=== PATIENT | male | born 1960 | race Caucasian/White ===

== ENCOUNTER 2023-02-28 09:02 | Outpatient (OUT) | payer OTHER, SELFPAY ==
--- NOTE | 2023-02-28 09:08 | CA_ITS ---
Patient: CHENTE STUBBS Exam Date: 02/28/2023 : 1960 Gender:M Ordering : DR YAN MARCELINO M.D. Admission #: [id number] Family : Order #: [id number] CLICK HERE TO VIEW EXAM ECHOCARDIOGRAM REPORT PROCEDURE: CA ECHO DOPPLER COMPLETE INDICATIONS: shortness of breath COMPARISON: None. DESCRIPTION: COMPLETE ECHOCARDIOGRAM Real-time transthoracic echocardiography with 2D, M-mode, spectral and color flow Doppler performed. QUALITY: Technical quality was good. LEFT VENTRICLE: Normal chamber size. Borderline left ventricular hypertrophy. Global left ventricular systolic function is normal. LV EF: Calculated left ventricular ejection fraction is 57% DIASTOLIC: Normal diastolic function. ATRIAL SEPTUM: LEFT ATRIUM: Mild dilatation. RIGHT ATRIUM: Mild dilatation. RIGHT VENTRICLE: Normal chamber size. Normal right ventricular systolic function. TRICUSPID VALVE: Normal mobility and thickness. No stenosis with mild regurgitation. Mild pulmonary hypertension. RVSP 36 mmHg MITRAL VALVE: Normal mobility and thickness. No evidence of mitral valve stenosis. There is no mitral annular calcification. Trivial mitral regurgitation. AORTIC VALVE: Normal trileaflet appearance. No visible sclerosis. Normal leaflet mobility. No evidence of aortic valve stenosis. Trivial aortic regurgitation. AORTIC ROOT: Normal diameter and appearance. PULMONIC VALVE: Normal thickness and mobility. No stenosis. No regurgitation. PERICARDIUM: No evidence of pericardial effusion. IVC: Collapses with inspirations. Normal size PLEURA: CONCLUSION: 1. Normal ventricular systolic function. LVEF is 55 to 60%. 2. Mild biatrial dilatation. 3. Normal diastolic function. 4. Mild tricuspid regurgitation. 5. Mildly elevated right-sided pressures. RVSP is 36 mmHg. 6. No pericardial effusion. Adult Echocardiography Procedure Report Left Ventricle LVEDD (3.7 - 5.6 cm): 4.87 cm LVESD (2.2 - 4.0 cm): 3.39 cm LVIVS thickness (0.6 - 1.2 cm): 0.94 cm LVPW thickness (0.5 - 1.0 cm): 1.06 cm e': 0.12 m/s E - e': 5.60 LVOT Max Gradient: 2.88 mm[Hg] LVOT Area (cm2): 0.85 m/s Peak Velocity (LVOT): 0.85 m/s Mean Velocity (LVOT): 0.56 m/s LVOT Diameter 2.18 cm Left Ventricular Ejection Fraction: 56.82 % Left Atrium LA Volume Index (2D A2C): 38.75 ml/m2 Left Atrium Systolic Dimension: 3.64 cm Mitral Valve MV E to A Ratio: 1.27 Mitral Valve A-Wave Peak Velocity: 0.54 m/s Mitral Valve E-Wave Peak Velocity: 0.68 m/s Right Ventricle RV Internal Diastolic Dimension: 3.55 cm Aorta AO Root Diam: 3.54 cm Ascending Ao Diam: 3.04 cm Aortic Valve AoV Area (Peak Christo): 3.12 cm2, 3.12 cm2 AoV Area (VTI): 2.93 cm2, 2.93 cm2 Peak Velocity(Antegrade Flow): 1.01 m/s Peak Gradient(Antegrade Flow): 4.12 mm[Hg] Mean Velocity(Antegrade Flow): 0.74 m/s Mean Gradient(Antegrade Flow): 2.48 mm[Hg] Velocity Time Integral: 23.14 cm Tricuspid Valve Peak Velocity (Regurgitant Flow): 2.33 m/s, 2.47 m/s, 2.88 m/s Pulmonic Valve Mean Gradient: 2.02 mm[Hg], 1.84 mm[Hg] Mean Velocity: 0.66 m/s, 0.63 m/s Peak Velocity: 0.93 m/s Peak Gradient: 3.80 mm[Hg], 3.20 mm[Hg] Right Atrium Right Atrium Systolic Pressure: 73.62 ml, 73.62 ml Dictated by: Yan Marcelino M.D. on 02/28/2023 at 18:44 Approved by: Yan Marcelino M.D. on 02/28/2023 at 18:46
== END 2023-02-28 09:03 | disposition home or self-care (01) ==
LOC: CARD 09:05
PROVIDERS: PCP Family Medicine; Visit Provider Internal Medicine Interventional Cardiology
DX: R06.02 Shortness of breath (principal); Z95.5 Presence of coronary angioplasty implant and graft; I07.1 Rheumatic tricuspid insufficiency
CPT/HCPCS: 93306

== ENCOUNTER 2023-08-08 11:13 | Outpatient (OUT) | payer OTHER, SELFPAY ==
[2023-08-08 11:55] LABS: Chol HDL Ratio 1.9; Cholesterol 138 mg/dL (<=200); HDL Cholesterol 71 mg/dL (40-60); Triglycerides 120 mg/dL (<=150)
== END 2023-08-08 11:14 | disposition home or self-care (01) ==
PROVIDERS: PCP Family Medicine; Visit Provider Internal Medicine Interventional Cardiology
DX: E78.2 Mixed hyperlipidemia (principal)
CPT/HCPCS: 36415; 80061

== ENCOUNTER 2023-09-25 15:52 | Outpatient (OUT) | payer OTHER, SELFPAY ==
--- OUTSIDE RECORDS SUMMARY | 2023-09-25 15:55 | XMS_ITS | CCD ---
Author Name Unknown Address [address] [place] [address] Organization [facility] Care Team Providers Care Set Up [employer] Name Role Phone KIMBERLI, DR GUMARO Quispe Consulting Unavailable NADERER, DR GUMARO Quispe Attending Unavailable NADERER, DR GUMARO Quispe Admitting Unavailable NADERER, DR GUMARO Quispe Attending Unavailable NADERER, DR GUMARO Quispe Admitting Unavailable NADERER, DR GUMARO Quispe Primary Care Unavailable NADERER, DR GUMARO Quispe Consulting Unavailable UNKNOWN, PROVIDER Admitting Unavailable UNKNOWN, PROVIDER Attending Unavailable GUMARO AG Referring Unavailable NADEREBird, GUMARO Primary Care Unavailable NadereGumaro pang Primary Care Provider [phone] Jean-Claude CABRERA Referring Unavailable ENGJean-Claude MORAN Attending Unavailable NADGUMARO XIE Primary Care Unavailable Jean-Claude CABRERA Attending Unavailable NADGUMARO XIE Primary Care Unavailable NADEREGUMARO Pang Primary Care Unavailable Jean-Claude CABRERA Attending Unavailable GUMARO AG Primary Care Unavailable ISAAK HEARD Referring Unavailable ENGJean-Claude MORAN Referring Unavailable YAN MOSCOSO Attending Unavailable YAN MOSCOSO Attending Unavailable Gumaro Ag MD Primary Care Provider GUMARO AG Referring Unavailable NADEREGUMARO Pang Primary Care Unavailable NADEREGUMARO Pang Referring Unavailable NADEREBird, GUMARO Primary Care Unavailable NADEREGUMARO Pang Referring Unavailable NADEREBird, GUMARO Primary Care Unavailable NADGUMARO XIE Referring Unavailable NADEREBird, GUMARO Primary Care Unavailable ORQUIDEA, ISAAK N Referring Unavailable KIMBERLI, GUMARO Primary Care Unavailable ISAAK HEARD N Attending Unavailable GUMARO AG Referring Unavailable KIMBERLI, GUMARO Primary Care Unavailable NADEREBird, GUMARO Referring Unavailable NADEREBird, GUMARO Primary Care Unavailable Allergies Allergy Classification Reported Allergen(s) Allergy Type Date of Onset Reaction(s) Facility Amino Acids (1 source) Amino Acids Drug Allergy [facility] Repository (4 sources) Amino Acids; Translations: [LISINOPRIL] Drug Allergy 9 [facility] Repository (11 sources) Lisinopril Drug Allergy 9 Other: See Comments, Cough [facility] (7 sources) Isosorbide; Translations: [ISOSORBIDE] Drug Allergy 0 [facility] [employer] Medications Current Medications Medication Drug Class(es) Dates Sig (Normalized) Sig (Original) benzonatate 200 mg oral capsule (3 sources) Non-narcotic Antitussive Start: 09-18-2023 take 1 capsule by mouth three times daily as needed for cough benzonatate (TESSALON PERLES) 200 mg capsule Take 1 capsule (200 mg total) by mouth 3 (three) times a day as needed for cough. 60 capsule 0 09/18/2023 Active clopidogrel 75 mg oral tablet (11 sources) P2Y12 Platelet Inhibitor Start: 12-05-2021 take 1 tablet by mouth in the morning clopidogreL (PLAVIX) 75 mg tablet Take 1 tablet (75 mg total) by mouth in the morning. 0 12/01/2022 Active Comment on above: Take 75 mg by mouth. cyclobenzaprine hydrochloride 10 mg oral tablet (11 sources) Muscle Relaxant Start: 02-13-2023 take 1 tablet by mouth three times daily as needed for muscle spasms cyclobenzaprine (FLEXERIL) 10 mg tablet Take 1 tablet (10 mg total) by mouth 3 (three) times a day as needed for muscle spasms. 60 tablet 0 02/13/2023 Active Comment on above: Take 10 mg by mouth. diphenhydrAMINE 12.5 mg/5 mL elixir 50 mg, alum-mag hydroxide-simeth 400-400-40 mg/5 mL suspension 20 mL, lidocaine 2 % solution 20 mL (6 sources) Start: 08-05-2023 diphenhydrAMINE 12.5 mg/5 mL elixir 50 mg, alum-mag hydroxide-simeth 400-400-40 mg/5 mL suspension 20 mL, lidocaine 2 % solution 20 mL Swish and spit 10 mL every 4 (four) hours as needed for mucositis. 250 mL 1 08/05/2023 Active 0.4 ml enoxaparin sodium 100 mg/ml prefilled syringe (6 sources) Low Molecular Weight Heparin Start: 10-17-2021 enoxaparin (LOVENOX) syringe 40 mg fluticasone propionate 0.05 mg/actuat metered dose nasal spray (11 sources) Corticosteroid take 1 spray(s) nasal route in the morning fluticasone propionate (FLONASE) 50 mcg/actuation nasal spray Indications: allergic rhinitis Administer 1 spray into each nostril in the morning. Indications: inflammation of the nose due to an allergy. 0 Active Comment on above: Use 1 [place] in the n ose. icosapent ethyl 1000 mg oral capsule (6 sources) Start: 02-12-2023 VASCEPA 1 gram capsule Take 1 capsule (1 g total) by mouth 4 (four) times a day. TAKE 2 PILLS IN THE MORNING AND TAKE 2 PILLS AT NIGHT 0 02/12/2023 Active iv contrast (will be provided with radiology test) (1 source) Start: 05-21-2023 End: 05-22-2023 iv contrast (will be provided with radiology test) MRI Liver Inject, intravenously, once for 1 dose. No IV access, insert saline lock prior to the beginning of sedation, infusion, injection of imaging exam. Discontinue saline lock post exam. If Pt. has a central line or IVAD, may access for administration according to line specific nursing protocol. Once exam is complete flush line and de-access according to line specific nursing protocol in the MR contrast administration guidelines link. 1 Each 0 05/21/2023 05/22/2023 Active Comment on above: MRI Liver Inject, in travenously, once for 1 dose. No IV access, insert saline lock prior to the beginning of sedation, infusion, injection of imaging exam. Discontinue saline lock post exam. If Pt. has a central line or IVAD, may access for administration according to line specific nursing protocol. Once exam is complete flush line and de-access according to line specific nursing protocol in the MR contrast administration guidelines link. levoFLOXacin 750 mg oral tablet (3 sources) Quinolone Antimicrobial Start: 09-18-2023 End: 09-28-2023 take 1 tablet by mouth in the morning levoFLOXacin (LEVAQUIN) 750 mg tablet Take 1 tablet (750 mg total) by mouth in the morning for 10 days. 10 tablet 0 09/18/2023 09/28/2023 Active losartan potassium 50 mg oral tablet (11 sources) Angiotensin 2 Receptor Venkat Start: 03-30-2019 take 1 tablet by mouth once daily at breakfast losartan (COZAAR) 50 mg tablet Indications: hypertension Take 1 tablet (50 mg total) by mouth daily with breakfast Indications: high blood pressure. 5 03/30/2019 Active Comment on above: Take 50 mg by mouth. magnesium citrate 100 mg oral tablet (11 sources) take 1 capsule by mouth in the morning magnesium citrate 100 mg capsule Take 100 mg by mouth in the morning. 0 Active Comment on above: Take 100 mg by mouth . metoprolol tartrate 25 mg oral tablet (11 sources) beta-Adrenergic Venkat Start: 12-22-2019 take 1 tablet by mouth twice daily metoprolol tartrate (LOPRESSOR) 25 mg tablet Take 1 tablet (25 mg total) by mouth 2 (two) times a day. 60 tablet 0 12/22/2019 Active Comment on above: Take 1 tablet by cedrick th twice daily. omega-3 fatty acids 1,000 mg cap (5 sources) Start: 05-16-2023 End: 05-15-2024 omega-3 fatty acids 1,000 mg cap Take 1,000 mg by mouth. 0 05/16/2023 05/15/2024 Active Comment on above: Take 1,000 mg by cedrick th. omega-3 fatty acids/fish oil (OMEGA 3 FISH OIL ORAL) (6 sources) take 1000 mg by mouth in the morning omega-3 fatty acids/fish oil (OMEGA 3 FISH OIL ORAL) Take 1,000 mg by mouth in the morning. 0 Active ondansetron 8 mg oral tablet (11 sources) Serotonin-3 Receptor Antagonist Start: 06-25-2022 take 1 tablet by mouth twice daily as needed for nausea ondansetron (ZOFRAN) 8 mg tablet Indications: CINV (chemotherapy-induc ed nausea and vomiting) , Rectal cancer (CMS-HCC) , Primary malignant neoplasm of rectum (CMS-HCC) , Chemotherapy induced neutropenia (CMS-HCC) Take 1 tablet by mouth twice daily as needed for severe nausea or vomiting. 30 tablet 2 06/25/2022 Active Comment on above: Take 1 tablet by cedrick th twice daily as needed for severe nausea or vomiting. oxyCODONE hydrochloride 5 mg oral tablet (11 sources) Opioid Agonist Start: 08-05-2023 take 1 tablet by mouth every eight hours as needed for pain oxyCODONE (ROXICODONE) 5 mg immediate release tablet Indications: Rectal cancer (CMS-HCC) Take 1 tablet (5 mg total) by mouth every 8 (eight) hours as needed for pain. Max Daily Amount: 15 mg 45 tablet 0 08/05/2023 Active Start: 05-09-2023 oxyCODONE IR ( ROXICODONE) 5 mg immediate release tablet pantoprazole 40 mg delayed release oral tablet (11 sources) Proton Pump Inhibitor take 1 tablet by mouth once daily before breakfast pantoprazole (PROTONIX) 40 mg EC tablet Indications: gastroesophageal reflux disease Take 1 tablet (40 mg total) by mouth every morning before breakfast Indications: gastroesophageal reflux disease. 0 Active Comment on above: Take 40 mg by mouth. polyethylene glycol 3350 37448 mg powder for oral solution (6 sources) Osmotic Laxative Start: 2022 polyethylene glycol (GLYCOLAX) 17 gram packet Take 17 g by mouth in the morning. 14 packet 1 03/14/2023 Active prochlorperazine 10 mg oral tablet (11 sources) Phenothiazine Start: 2022 take 1 tablet by mouth every six hours as needed for nausea prochlorperazine (COMPAZINE) 10 mg tablet Indications: CINV (chemotherapy-induced nausea and vomiting) , Rectal cancer (CMS-HCC) , Primary malignant neoplasm of rectum (CMS-HCC) , Chemotherapy induced neutropenia (CMS-HCC) TAKE ONE TABLET BY MOUTH EVERY 6 HOURS NEEDED FOR MILD NAUSEA OR VOMITING 60 tablet 2 08/06/2023 Active Start: 06-25-2022 take 1 tablet by cedrick th every six hours as needed for nausea prochlorperazine (COMPAZINE) 10 mg tablet Take 1 tablet by mouth every 6 hours as needed for mild nausea or vomiting. 0 06/25/2022 Active Comment on above: Take 1 tablet by cedrick th every 6 hours as needed for mild nausea or vomiting. TRELEGY ELLIPTA 200-62.5-25 mcg blister with device (6 sources) Start: 01-21-2023 take 200 puff(s) by inhalation in the morning TRELEGY ELLIPTA 200-62.5-25 mcg blister with device Inhale 200 puffs in the morning. 0 01/21/2023 Active Completed/Discontinued Medications Medication Drug Class(es) Dates Sig (Normalized) Sig (Original) aspirin 81 mg delayed release oral tablet (11 sources) Platelet Aggregation Inhibitor, Nonsteroidal Anti-inflammatory Drug Start: 07-31-2021 aspirin, enteric coated (ASPIRIN, ENTERIC COATED) 81 mg EC tablet Take 81 mg by mouth. 0 07/31/2021 Active Comment on above: Take 81 mg by mouth. atorvastatin 40 mg oral tablet (11 sources) HMG-CoA Reductase Inhibitor Start: 06-26-2021 take 1 tablet by mouth once daily atorvastatin (LIPITOR) 40 mg tablet Take 1 tablet by mouth once daily. 0 06/26/2021 Active Comment on above: Take 1 tablet by cedrick once daily. 1 ml atropine sulfate 0.4 mg/ml injection (1 source) Anticholinergic, Cholinergic Muscarinic Antagonist Start: 09-03-2023 End: 09-03-2023 atropine injection 0.4 mg bevacizumab (AVASTIN) 500 mg in sodium chloride 0.9 % 100 mL chemo IVPB (1 source) Start: 09-03-2023 End: 09-03-2023 bevacizumab (AVASTIN) 500 mg in sodium chloride 0.9 % 100 mL chemo IVPB 120 actuat budesonide 0.16 mg/actuat / formoterol fumarate 0.0048 mg/actuat / glycopyrrolate 0.009 mg/actuat metered dose inhaler (5 sources) Corticosteroid, beta2-Adrenergic Agonist Start: 04-29-2023 BREZTRI AEROSPHERE 160-9-4.8 mcg/actuation HFA aerosol inhaler capecitabine 500 mg oral tablet (11 sources) Nucleoside Metabolic Inhibitor Start: 05-07-2023 capecitabine (XELODA) 500 mg tablet Start: 09-23-2022 capecitabine ( XELODA) 500 mg chemo tablet Take 4 tablets by mouth 2 (two) times a day Take for one week and 1 week off 112 tablet 11 09/23/2022 Active cholecalciferol 0.05 mg oral tablet (11 sources) Vitamin D Start: 05-14-2023 cholecalcifero l (VITAMIN D3) 50 mcg (2,000 unit) tablet take 1 tablet by mouth in the mo rning cholecalciferol, vitamin D3, 5,000 units tablet Take 1 tablet (5,000 Units total) by mouth in the morning. 0 Active dexAMETHasone (DECADRON) 12 mg, palonosetron (ALOXI) 0.25 mg in sodium chloride 0.9 % 50 mL IVPB (1 source) Start: 09-03-2023 End: 09-03-2023 dexAMETHasone (DECADRON) 12 mg, palonosetron (ALOXI) 0.25 mg in sodium chloride 0.9 % 50 mL IVPB 2 ml famotidine 10 mg/ml injection (1 source) Histamine-2 Receptor Antagonist Start: 09-03-2023 End: 09-03-2023 famotidine (PF) (PEPCID) injection 20 mg 150 ml glucose 50 mg/ml injection (1 source) Start: 09-03-2023 End: 09-03-2023 dextrose 5 % (D5W) infusion irinotecan (CAMPTOSAR) 347 mg in dextrose 5 % in water (D5W) 500 mL chemo IVPB (1 source) Start: 09-03-2023 End: 09-03-2023 irinotecan (CAMPTOSAR) 347 mg in dextrose 5 % in water (D5W) 500 mL chemo IVPB nitroglycerin 0.4 mg sublingual tablet (11 sources) Nitrate Vasodilator Start: 06-26-2021 nitroglyce rin sublingual (NITROQUICK) 0.[address] 1 tablet as needed by sublingual route as directed. 0 06/26/2021 Active nitroglycerin (N ITROSTAT) 0.[address] 1 tablet (0.4 mg total) under the tongue every 5 (five) minutes as needed for chest pain. 0 Active Comment on above: Place 1 tablet as ne eded by sublingual route as directed. 12 hr ranolazine 500 mg extended release oral tablet (11 sources) Anti-anginal Start: 04-01-2023 ranolazine ER (RANEXA) 500 mg 12 hr tablet 1000 ml sodium chloride 9 mg/ml injection (1 source) Start: 09-03-2023 End: 09-03-2023 sodium chloride 0.9 % infusion Problems Active Problems Problem Classification Problem Date Documented Date Episodic/Chronic Cancer of rectum and anus (20 sources) Primary malignant neoplasm of rectum; Translations: [Malignant neoplasm of rectum] Onset: 06-11-2019 09-02-2023 Chronic Coronary atherosclerosis and other heart disease (20 sources) Atherosclerotic heart disease of [place] coronary artery without angina pectoris; Translations: [Old myocardial infarction] Onset: 12-21-2019 Chronic Deficiency and other anemia (6 sources) Iron deficiency anemia due to blood loss; Translations: [Iron deficiency anemia secondary to blood loss (chronic)] Onset: 11-05-2019 11-05-2019 Chronic Diseases of white blood cells (8 sources) Neutropenia due to and following chemotherapy; Translations: [Agranulocytosis secondary to cancer chemotherapy] Onset: 02-14-2020 02-14-2020 Chronic Disorders of lipid metabolism (2 sources) Mixed hyperlipidemia; Translations: [Mixed hyperlipidemia] Onset: 08-08-2023 Chronic Essential hypertension (8 sources) Essential (primary) hypertension; Translations: [Essential hypertension] Onset: 11-05-2021 Chronic Other liver diseases (7 sources) Lesion of liver; Translations: [Liver disease, unspecified] Onset: 09-13-2021 10-17-2021 Chronic Other nervous system disorders (6 sources) Peripheral neuropathy due to and following chemotherapy; Translations: [Drug-induced polyneuropathy] Onset: 02-16-2021 02-16-2021 Chronic Other nutritional; endocrine; and metabolic disorders (6 sources) Body mass index 30+ - obesity; Translations: [Obesity, unspecified] Onset: 11-05-2021 11-05-2021 Chronic Other screening for suspected conditions (not mental disorders or infectious disease) (1 source) Encounter for screening for malignant neoplasm of prostate; Translations: [ENC SCREEN MALIG NEOPLASM PROSTATE] Onset: 01-19-2021 Episodic Secondary malignancies (2 sources) Secondary malignant neoplasm of liver; Translations: [Secondary malignant neoplasm of liver and intrahepatic bile duct] 06-24-2023 Chronic Secondary malignancies (2 sources) Secondary malignant neoplasm of liver and intrahepatic bile duct; Translations: [Secondary malignant neoplasm of liver and intrahepatic bile duct] Onset: 06-11-2023 Chronic Unclassified (1 source) Labs Only Onset: 09-02-2023 Unclassified (1 source) Outpatient Infusion Onset: 08-06-2023 Viral infection (1 source) COVID-19; Translations: [COVID-19] Onset: 07-13-2020 Past or Other Problems Problem Classification Problem Date Documented Date Episodic/Chronic Coronary atherosclerosis and other heart disease (10 sources) Presence of aortocoronary bypass graft; Translations: [Presence of coronary angioplasty implant and graft] Onset: 2 Episodic Deficiency and other anemia (6 sources) Normocytic anemia; Translations: [Anemia, unspecified] Onset: 0 11-04-2019 Episodic E Codes: Adverse effects of medical drugs (1 source) Adverse effect of antineoplastic and immunosuppressive drugs, initial encounter; Translations: [Adverse effect of antineoplastic and immunosuppressive drugs, initial encounter] Onset: 0 Episodic Immunizations and screening for infectious disease (3 sources) Contact with and (suspected) exposure to other viral communicable diseases; Translations: [CONTCT EXPS OTH VIRL COMMUNICABL DZ] Onset: 0 Episodic Mood disorders (6 sources) Mood disorders Onset: 0 11-03-2019 Nausea and vomiting (8 sources) Chemotherapy-induced nausea and vomiting; Translations: [Nausea with vomiting, unspecified] Onset: 0 01-10-2020 Episodic Other lower respiratory disease (2 sources) Shortness of breath; Translations: [Shortness of breath] Onset: 3 Episodic Other nutritional; endocrine; and metabolic disorders (6 sources) H/O: raised blood lipids; Translations: [Personal history of other endocrine, nutritional and metabolic disease] Onset: 2 11-05-2021 Episodic Results Test Name Value Interpretation Reference Range Facility CBC AND AUTO DIFFon 09-16-19 24 Eosinophils (Bld) [#/Vol] 0.1 10*3/uL Normal 0.0-0.4 [facility] Comment on above: Performed By: #### C BCA #### [facility] ([id number]) [address] [place] [address] [place] [address] #### CMP, 86543-8 #### [facility] ([id number]) [address] [place] [address], [place] [address] #### 2039-6 #### [facility] ([id number]) [address], [address] [place] [address] Eosinophils/100 WBC (Bld) 4.0 % Normal [facility] Comment on above: Performed By: #### C BCA #### [facility] ([id number]) [address] [place] [address] [place] [address] #### CMP, 17465-1 #### [facility] ([id number]) [address] [place] [address] #### 9-6 #### [facility] ([id number]) [address], [address] [place] [address] Erythrocyte distribution width (RBC) [Ratio] 17.5 % High 11.5-15.0 [facility] Comment on above: Performed By: #### C BCA #### [facility] ([id number]) [address] [place] [address] [place] [address] #### EMMANUEL, 56426-7 #### [facility] ([id number]) [address] [place] [address] #### 2038-6 #### [facility] ([id number]) [address] [place] [address] Hematocrit (Bld) [Volume fraction] 35.2 % Low 39-49 [facility] Comment on above: Performed By: #### C BCA #### [facility] ([id number]) [address] [place] [address] [place] [address] #### EMMANUEL, 22062-4 #### [facility] ([id number]) [address] [place] [address] #### 2038-6 #### [facility] ([id number]) [address] [place] [address] Hemoglobin (Bld) [Mass/Vol] 11.8 g/dL Low 13.0-17.0 [facility] Comment on above: Performed By: #### C BCA #### [facility] ([id number]) [address] [place] [address] [place] [address] #### CMP, [id number] #### [facility] ([id number]) [address] [place] [address] #### 2038-6 #### [facility] ([id number]) [address] [place] [address] Lymphocytes (Bld) [#/Vol] 0.5 10*3/uL Low 1.0-3.5 [facility] Comment on above: Performed By: #### C BCA #### [facility] ([id number]) [facility] [address] [address] #### CMP, 83912-2 #### [facility] ([id number]) [address] [place] [address] #### 6 #### [facility] ([id number]) [address] [place] [address] Lymphocytes/100 WBC (Bld) 24.0 % Normal [facility] Comment on above: Performed By: #### C BCA #### [facility] ([id number]) [address] [place] [address] [place] [address] #### CMP, #### [facility] ([id number]) [address] [place] [address] #### 2038-6 #### [facility] ([id number]) [address] [address] [place] [address] MCH (RBC) [Entitic mass] 32.1 pg Normal 27-34 [facility] Comment on above: Performed By: #### C BCA #### [facility] ([id number]) [address] [place] [address] #### CMP, #### [facility] ([id number]) [address] [place] [address] #### 2038-6 #### [facility] ([id number]) [address] [place] [address] MCHC (RBC) [Mass/Vol] 33.5 g/dL Normal 32-36 [facility] Comment on above: Performed By: #### C BCA #### [facility] ([id number]) [address] [place] [address] #### CMP, 59776-6 #### [facility] ([id number]) [address] [place] [address] #### 2038-6 #### [facility] ([id number]) [address] [address] [place] [address] MCV (RBC) [Entitic vol] 96 fL Normal 80-100 [facility] Comment on above: Performed By: #### C BCA #### [facility] ([id number]) [address] [place] [address] [place] [address] #### CMP, 86770-6 #### [facility] ([id number]) [address] [place] [address] #### 6 #### [facility] ([id number]) [address] [address] [place] [address] Monocytes (Bld) [#/Vol] 0.3 10*3/uL Normal 0-0.9 [facility] Comment on above: Performed By: #### C BCA #### [facility] ([id number]) [address] [place] [address] [place] [address] #### CMP, #### [facility] ([id number]) [address] [place] [address] #### 2039-01 #### [facility] ([id number]) [address] [place] [address] Monocytes/100 WBC (Bld) 14.0 % Normal [facility] Comment on above: Performed By: #### C BCA #### [facility] ([id number]) [address] [place] [address] [place] [address] #### CMP, 39501-9 #### [facility] ([id number]) [address] [place] [address] #### 9-6 #### [facility] ([id number]) [address] [place] [address] Neutrophils (Bld) [#/Vol] 1.3 10*3/uL Low 1.5-6.6 [facility] Comment on above: Performed By: #### C BCA #### [facility] ([id number]) [address] [place] [address] [place] [address] #### EMMANUEL, 43433-7 #### [facility] ([id number]) [address] [place] [address] #### 9-6 #### [facility] ([id number]) [address] [place] [address] Platelet mean volume (Bld) [Entitic vol] 7.4 fL Normal 7-12 [facility] Comment on above: Performed By: #### C BCA #### [facility] ([id number]) [address] [place] [address] [place] [address] #### CMP, 52778-0 #### [facility] ([id number]) [address] [place] [address] #### 9-6 #### [facility] ([id number]) [address] [place] [address] Platelets (Bld) [#/Vol] 263 10*3/uL Normal 150-450 [facility] Comment on above: Performed By: #### C BCA #### [facility] ([id number]) [address] [place] [address] #### CMP, 52563-9 #### [facility] ([id number]) [address] [place] [address] #### 2038-6 #### [facility] ([id number]) [address] [address] [place] [address] POLYCHROMASIA 2+ Abnormal NONE [facility] Comment on above: Performed By: #### C BCA #### [facility] [facility] ([id number]) [address] [place] [address] [place] [address] #### CMP, #### [facility] ([id number]) [address] [place] [address] #### 2038-6 #### [facility] ([id number]) [address] [facility] [place] [address] RBC COUNT 3.66 X10E12/L Low 4.10-5.70 [facility] Comment on above: Performed By: #### C BCA #### [facility] ([id number]) [address] [place] [address] #### CMP, #### [facility] ([id number]) [address] [place] [address] #### 6 #### [facility] ([id number]) [address] [facility], [address] [place] [address] SEG NEUTROPHIL 58.0 % Normal [facility] Comment on above: Performed By: #### C BCA #### [facility] ([id number]) [address] [place] [address] [place] [address] #### CMP, #### [facility] ([id number]) [address] [place] [address] #### 9-6 #### [facility] ([id number]) [address], [address] [place] [address] TEARDROP 1+ Abnormal NONE [facility] Comment on above: Performed By: #### C BCA #### [facility] ([id number]) [address] [place] [address] #### CMP, 65309-0 #### [facility] ([id number]) [address] [place] [address] #### 2038-6 #### [facility] ([id number]) [address], [address] [place] [address] WBC (Bld) [#/Vol] 2.2 10*3/uL Low 4.0-11.0 [facility] Comment on above: Performed By: #### C BCA #### [facility] ([id number]) [address] [place] [address] #### CMP, 98246-7 #### [facility] ([id number]) [address] [place] [address] #### 2038-6 #### [facility] ([id number]) [address], [address] [place] [address] COMPREHENSIVE METABOLIC PANE Michael 09-16-2023 Albumin [Mass/Vol] 3.9 g/dL Normal 3.2-5.3 [facility] Comment on above: Performed By: #### C BCA #### [facility] ([id number]) [address] [place] [address] #### CMP, #### [facility] ([id number]) [address] [place] [address] #### 2038- #### [facility] ([id number]) [address] [place] [address] ALP [Catalytic activity/Vol] 124 U/L Normal 39-130 [facility] Comment on above: Performed By: #### C BCA #### [facility] ([id number]) [address] [place] [address] [place] [address] #### CMP, 08915-9 #### [facility] ([id number]) [address] [place] [address] #### 9-6 #### [facility] ([id number]) [address] [place] [address], [address] [place] [address] ALT [Catalytic activity/Vol] 20 U/L Normal 0-40 [facility] Comment on above: Performed By: #### C BCA #### [facility] ([id number]) [address] [place] [address] [place] [address] #### CMP, 07668-7 #### [facility] ([id number]) [address] [place] [address] #### 9-6 #### [facility] ([id number]) [address] [place] [address], [address] [place] [address] Anion gap [Moles/Vol] 10 mmol/L Normal 5-15 [facility] Comment on above: Performed By: #### C BCA #### [facility] ([id number]) [address] [place] [address] [place] [address] #### CMP, 32492-3 #### [facility] ([id number]) [address] [place] [address] #### 9-6 #### [facility] ([id number]) [address] [place] [address], [address] [place] [address] AST [Catalytic activity/Vol] 22 U/L Normal 0-41 [facility] Comment on above: Performed By: #### C BCA #### [facility] ([id number]) [address] [place] [address] [place] [address] #### CMP, 91144-1 #### [facility] ([id number]) [address] [place] [address] #### 9-6 #### [facility] ([id number]) [address] [facility], [address] [place] [address] Bilirubin [Mass/Vol] 0.9 mg/dL Normal 0.3-1.2 [facility] Comment on above: Performed By: #### C BCA #### [facility] ([id number]) [address] [place] [address] [place] [address] #### EMMANUEL, 53782-1 #### [facility] ([id number]) [address] [place] [address] #### 9-6 #### [facility] ([id number]) [address] [facility], [address] [place] [address] Calcium [Mass/Vol] 9.0 mg/dL Normal 8.5-10.5 [facility] Comment on above: Performed By: #### C BCA #### [facility] ([id number]) [address] [place] [address] [place] [address] #### EMMANUEL, 30299-1 #### [facility] ([id number]) [address] [place] [address] #### 2038-6 #### [facility] ([id number]) [address] [facility], [address] [place] [address] Chloride [Moles/Vol] 104 mmol/L Normal 98-109 [facility] Comment on above: Performed By: #### C BCA #### [facility] ([id number]) [address] [place] [address] [place] [address] #### CMP, 61486-5 #### [facility] ([id number]) [address] [place] [address] #### 9-6 #### [facility] ([id number]) [address] [place] [address] CO2 [Moles/Vol] 27 mmol/L Normal 22-32 [facility] Comment on above: Performed By: #### C BCA #### [facility] ([id number]) [address] [place] [address] [place] [address] #### CMP, 50083-8 #### [facility] ([id number]) [address] [place] [address] #### 9-6 #### [facility] ([id number]) [address] [facility], [address] [place] [address] Creatinine [Mass/Vol] 0.86 mg/dL Normal 0.60-1.30 [facility] Comment on above: Result Comment: METH OD TRACEABLE TO IDMS STANDARD Performed By: #### C BCA #### [facility] ([id number]) [address] [place] [address] [place] [address] #### CMP, 27969-6 #### [facility] ([id number]) [address] [place] [address] #### 9-6 #### [facility] ([id number]) [address] [facility] [place] [address] eGFR (CKD-EPI) NON-RACE DEPENDENT >90 Normal >59 [facility] Comment on above: Result Comment: Reported eGFR is based on the CKD-EPI 2020 equation that does not use a race coefficient. Performed By: #### C BCA #### [facility] ([id number]) [address] [place] [address] [place] [address] #### CMP, 36902-6 #### [facility] ([id number]) [address] [place] [address] #### 9-6 #### [facility] ([id number]) [address] [place] [address] Glucose [Mass/Vol] 125 mg/dL High 65-99 [facility] Comment on above: Performed By: #### C BCA #### [facility] ([id number]) [address] [place] [address] #### EMMANUEL, 28643-2 #### [facility] ([id number]) [address] [place] [address] #### 9-6 #### [facility] ([id number]) [address] [place] [address] Potassium [Moles/Vol] 3.4 mmol/L Low 3.5-5.0 [facility] Comment on above: Performed By: #### C BCA #### [facility] ([id number]) [address] [place] [address] [place] [address] #### EMMANUEL, 67013-1 #### [facility] ([id number]) [address] [place] [address] #### 9-6 #### [facility] ([id number]) [address] [place] [address] Protein [Mass/Vol] 6.3 g/dL Normal 6.0-8.0 [facility] Comment on above: Performed By: #### C BCA #### [facility] ([id number]) [address] [place] [address] #### EMMANUEL, 42045-2 #### [facility] ([id number]) [address] [place] [address] #### 9-6 #### [facility] ([id number]) [address] [place] [address] Sodium [Moles/Vol] 141 mmol/L Normal 134-146 [facility] Comment on above: Performed By: #### C BCA #### [facility] ([id number]) [address] [place] [address] #### CMP, 61408-2 #### [facility] ([id number]) [address] [place] [address] #### 2039-6 #### [facility] ([id number]) [address] [facility], [address] [place] [address] Urea nitrogen [Mass/Vol] 10 mg/dL Normal 5-27 [facility] Comment on above: Performed By: #### C BCA #### [facility] ([id number]) [address] [place] [address] #### EMMANUEL, 27626-3 #### [facility] ([id number]) [address] [place] [address] #### 2039-6 #### [facility] ([id number]) [address] [facility], [address] [place] [address] Carcinoembryonic Ag [Mass/Vo l]on 09-16-2023 CEA 28.6 ng/mL High 0.0-3.0 [facility] Comment on above: Result Comment: 0.0-3.0 ng/mL FOR NON SMOKERS 0.0-5.0 ng/mL FOR SMOKERS The method used for this test is Rebekah Meridian DXI chemiluminescent immunoassay. Values obtained by different assay methods cannot be used interchangeably. Performed By: #### C BCA #### [facility] ([id number]) [address] [place] [address] #### CMP, 33970-5 #### [facility] ([id number]) [address] [place] [address] #### 9-6 #### [facility] ([id number]) [facility] [facility], [address] [place] [address] MAGNESIUMon 09-16-2023 Magnesium [Mass/Vol] 1.8 mg/dL Normal 1.8-2.6 [facility] Comment on above: Performed By: #### C BCA #### [facility] ([id number]) [address] [place] [address] [place] [address] #### EMMANUEL, 02175-9 #### [facility] ([id number]) [address] [place] [address] #### 9-6 #### [facility] ([id number]) [address] [place] [address], [address] [place] [address] PROTEIN CREAT RATIOon 2023 RANDOM URINE PROTEIN 140 mg/L High <120 [facility] Comment on above: Performed By: #### C BCA #### [facility] ([id number]) [address] [place] [address] [place] [address] #### EMMANUEL, 70531-2 #### [facility] ([id number]) [address] [place] [address] #### 2038-6 #### [facility] ([id number]) [address] [place] [address], [address] [place] [address] U/PRO/INJURY/SAFETY HAZARD ASSESSMENT RATIO CALC 0.08 Normal <0.2 [facility] Comment on above: Result Comment: Neph rotic Syndrome is associated with ratios >3.5 Performed By: #### C BCA #### [facility] ([id number]) [address] [place] [address] [place] [address] #### CMP, 09571-6 #### [facility] ([id number]) [address] [place] [address] #### 9-6 #### [facility] ([id number]) [address] [facility], [address] [place] [address] URINE CREATININE,RDM 169.97 mg/dL Normal Pr [facility] Comment on above: Performed By: #### C BCA #### [facility] ([id number]) [facility] [place] [address] #### CMP, 21910-9 #### [facility] ([id number]) [address] [place] [address], [place] [address] #### 9-6 #### [facility] ([id number]) [address] [place] [address], [address] [place] [address] CBC AND AUTO DIFFon 09-02-19 24 Eosinophils (Bld) [#/Vol] 0.1 10*3/uL Normal 0.0-0.4 [facility] Comment on above: Performed By: #### C BCA #### [facility] ([id number]) [address] [place] [address] [place] [address] #### 9-6, CMP, #### [facility] ([id number]) [address] [place] [address], [address] [place] [address] Eosinophils/100 WBC (Bld) 5.0 % Normal [facility] Comment on above: Performed By: #### C BCA #### [facility] ([id number]) [address] [place] [address] [place] [address] #### 2039-01, CMP, #### [facility] ([id number]) [address] [place] [address], [address] [place] [address] Erythrocyte distribution width (RBC) [Ratio] 17.0 % High 11.5-15.0 [facility] Comment on above: Performed By: #### C BCA #### [facility] ([id number]) [address] [place] [address] [place] [address] #### 2038-, CMP, #### [facility] ([id number]) [address] [place] [address] Hematocrit (Bld) [Volume fraction] 35.5 % Low 39-49 [facility] Comment on above: Performed By: #### C BCA #### [facility] ([id number]) [address] [place] [address] #### 9-6, CMP, #### [facility] ([id number]) [address] [place] [address] Hemoglobin (Bld) [Mass/Vol] 12.4 g/dL Low 13.0-17.0 [facility] Comment on above: Performed By: #### C BCA #### [facility] ([id number]) [address] [place] [address] #### 9-6, CMP, #### [facility] ([id number]) [address] [place] [address] Lymphocytes (Bld) [#/Vol] 0.6 10*3/uL Low 1.0-3.5 [facility] Comment on above: Performed By: #### C BCA #### [facility] ([id number]) [address] [place] [address] #### 9-6, CMP, #### [facility] ([id number]) [address] [place] [address] Lymphocytes/100 WBC (Bld) 24.0 % Normal [facility] Comment on above: Performed By: #### C BCA #### [facility] ([id number]) [address] [place] [address] #### 9-6, CMP, #### [facility] ([id number]) [address] [place] [address] MCH (RBC) [Entitic mass] 32.5 pg Normal 27-34 [facility] Comment on above: Performed By: #### C BCA #### [facility] ([id number]) [address] [place] [address] [place] [address] #### 9-6, CMP, #### [facility] ([id number]) [address] [place] [address] MCHC (RBC) [Mass/Vol] 34.9 g/dL Normal 32-36 [facility] Comment on above: Performed By: #### C BCA #### [facility] ([id number]) [address] [place] [address] [place] [address] #### 9-6, CMP, #### [facility] ([id number]) [address] [place] [address] MCV (RBC) [Entitic vol] 93 fL Normal 80-100 [facility] Comment on above: Performed By: #### C BCA #### [facility] ([id number]) [address] [place] [address] [place] [address] #### 2038-6, CMP, #### [facility] ([id number]) [address] [place] [address] Monocytes (Bld) [#/Vol] 0.4 10*3/uL Normal 0-0.9 [facility] Comment on above: Performed By: #### C BCA #### [facility] ([id number]) [address] [place] [address] [place] [address] #### 2038-, CMP, #### [facility] ([id number]) [address] [place] [address] Monocytes/100 WBC (Bld) 17.0 % Normal [facility] Comment on above: Performed By: #### C BCA #### [facility] ([id number]) [address] [place] [address] [place] [address] #### 2039-6, CMP, 77780-4 #### [facility] ([id number]) [address] [place] [address], [address] [place] [address] Neutrophils (Bld) [#/Vol] 1.4 10*3/uL Low 1.5-6.6 [facility] Comment on above: Performed By: #### C BCA #### [facility] ([id number]) [address] [place] [address] [place] [address] #### 2039-6, CMP, 04589-8 #### [facility] ([id number]) [address] [place] [address], [address] [place] [address] Platelet mean volume (Bld) [Entitic vol] 6.5 fL Low 7-12 [facility] Comment on above: Performed By: #### C BCA #### [facility] ([id number]) [address] [place] [address] [address] [facility] [place] [address] #### 2039-6, CMP, 78440-3 #### [facility] ([id number]) [address] [place] [address], [address] [place] [address] Platelets (Bld) [#/Vol] 190 10*3/uL Normal 150-450 [facility] Comment on above: Performed By: #### C BCA #### [facility] ([id number]) [address] [place] [address] [place] [address] #### 9-6, CMP, 82598-5 #### [facility] ([id number]) [address] [place] [address], [address] [place] [address] RBC COUNT 3.81 X10E12/L Low 4.10-5.70 [facility] Comment on above: Performed By: #### C BCA #### [facility] ([id number]) [address] [place] [address] [place] [address] #### 9-6, CMP, 58918-4 #### [facility] ([id number]) [address] [facility], [address] [place] [address] SEG NEUTROPHIL 54.0 % Normal [facility] Comment on above: Performed By: #### C BCA #### [facility] ([id number]) [address] [place] [address] [place] [address] #### 9-6, CMP, 39934-4 #### [facility] ([id number]) [address] [facility], [address] [place] [address] WBC (Bld) [#/Vol] 2.5 10*3/uL Low 4.0-11.0 [facility] Comment on above: Performed By: #### C BCA #### [facility] ([id number]) [address] [place] [address] [place] [address] #### 9-6, CMP, 32336-8 #### [facility] ([id number]) [address] [facility], [address] [place] [address] COMPREHENSIVE METABOLIC PANE Michael 09-02-2023 Albumin [Mass/Vol] 4.3 g/dL Normal 3.2-5.3 [facility] Comment on above: Performed By: #### C BCA #### [facility] ([id number]) [address] [place] [address] [place] [address] #### 9-6, CMP, 31544-6 #### [facility] ([id number]) [address] [facility], [address] [place] [address] ALP [Catalytic activity/Vol] 129 U/L Normal 39-130 [facility] Comment on above: Performed By: #### C BCA #### [facility] ([id number]) [address] [place] [address] #### 9-6, CMP, 56779-0 #### [facility] ([id number]) [address] [place] [address] ALT [Catalytic activity/Vol] 32 U/L Normal 0-40 [facility] Comment on above: Performed By: #### C BCA #### [facility] ([id number]) [address] [place] [address] #### 2039-6, CMP, 18400-0 #### [facility] ([id number]) [address] [place] [address] Anion gap [Moles/Vol] 8 mmol/L Normal 5-15 [facility] Comment on above: Performed By: #### C BCA #### [facility] ([id number]) [address] [place] [address] [place] [address] #### 9-6, CMP, 41829-6 #### [facility] ([id number]) [address] [place] [address] AST [Catalytic activity/Vol] 26 U/L Normal 0-41 [facility] Comment on above: Performed By: #### C BCA #### [facility] ([id number]) [address] [place] [address] [place] [address] #### 9-6, CMP, #### [facility] ([id number]) [address] [place] [address] Bilirubin [Mass/Vol] 1.0 mg/dL Normal 0.3-1.2 [facility] Comment on above: Performed By: #### C BCA #### [facility] ([id number]) [address] [place] [address] [place] [address] #### 9-6, CMP, #### [facility] ([id number]) [address] [place] [address] Calcium [Mass/Vol] 9.1 mg/dL Normal 8.5-10.5 [facility] Comment on above: Performed By: #### C BCA #### [facility] ([id number]) [address] [place] [address] #### 2039-6, CMP, 15363-1 #### [facility] ([id number]) [address] [facility] [place] [address] Chloride [Moles/Vol] 104 mmol/L Normal 98-109 [facility] Comment on above: Performed By: #### C BCA #### [facility] ([id number]) [address] [place] [address] [address] [facility] [place] [address] #### 2039-6, CMP, 60857-1 #### [facility] ([id number]) [address] [facility] [place] [address] CO2 [Moles/Vol] 27 mmol/L Normal 22-32 [facility] Comment on above: Performed By: #### C BCA #### [facility] ([id number]) [address] [place] [address] [place] [id number] #### 2039-6, CMP, 17655-3 #### [facility] ([id number]) [address] [facility], [address] [place] [address] Creatinine [Mass/Vol] 0.84 mg/dL Normal 0.60-1.30 [facility] Comment on above: Result Comment: METH OD TRACEABLE TO IDMS STANDARD Performed By: #### C BCA #### [facility] ([id number]) [address] [place] [address] [place] [id number] #### 2039-6, CMP, 27147-1 #### [facility] ([id number]) [address] [facility], [address] [place] [address] eGFR (CKD-EPI) NON-RACE DEPENDENT >90 Normal >59 [facility] Comment on above: Result Comment: Reported eGFR is based on the CKD-EPI 2020 equation that does not use a race coefficient. Performed By: #### C BCA #### [facility] ([id number]) [address] [place] [address] [place] [id number] #### 9-6, CMP, 59687-4 #### [facility] ([id number]) [address] [facility], [address] [place] [address] Glucose [Mass/Vol] 88 mg/dL Normal 65-99 [facility] Comment on above: Performed By: #### C BCA #### [facility] ([id number]) [address] [place] [address] [place] [address] #### 9-6, CMP, 42779-7 #### [facility] ([id number]) [address] [facility], [address] [place] [address] Potassium [Moles/Vol] 4.1 mmol/L Normal 3.5-5.0 [facility] Comment on above: Performed By: #### C BCA #### [facility] ([id number]) [address] [place] [address] [place] [address] #### 9-6, CMP, 57656-7 #### [facility] ([id number]) [address] [place] [address], [address] [place] [address] Protein [Mass/Vol] 6.4 g/dL Normal 6.0-8.0 [facility] Comment on above: Performed By: #### C BCA #### [facility] ([id number]) [address] [place] [address] [place] [address] #### 9-6, CMP, #### [facility] ([id number]) [address] [facility], [address] [place] [address] Sodium [Moles/Vol] 139 mmol/L Normal 134-146 [facility] Comment on above: Performed By: #### C BCA #### [facility] ([id number]) [address] [place] [address] [place] [address] #### 2038-, CMP, 75694-5 #### [facility] ([id number]) [address] [facility], [address] [place] [address] Urea nitrogen [Mass/Vol] 11 mg/dL Normal 5-27 [facility] Comment on above: Performed By: #### C BCA #### [facility] ([id number]) [address] [place] [address] [place] [id number] #### 2039-6, CMP, 30563-5 #### [facility] ([id number]) [address] [facility], [address] [place] [address] Carcinoembryonic Ag [Mass/Vo l]on 09-02-2023 CEA 34.7 ng/mL High 0.0-3.0 [facility] Comment on above: Result Comment: 0.0-3.0 ng/mL FOR NON SMOKERS 0.0-5.0 ng/mL FOR SMOKERS The method used for this test is Rebekah [employer] DXI chemiluminescent immunoassay. Values obtained by different assay methods cannot be used interchangeably. Performed By: #### C BCA #### [facility] ([id number]) [address] [place] [address] [place] [address] #### 2039-6, EMMANUEL, 87330-3 #### [facility] ([id number]) [address] [facility], [address] [place] [address] MAGNESIUMon 09-02-2023 Magnesium [Mass/Vol] 2.2 mg/dL Normal 1.8-2.6 [facility] Comment on above: Performed By: #### C BCA #### [facility] ([id number]) [address] [place] [address] [place] [address] #### 2039-6, CMP, 59607-4 #### [facility] ([id number]) [address] [facility], [address] [place] [address] PROTEIN CREAT RATIOon 2023 RANDOM URINE PROTEIN 100 mg/L Normal <120 [facility] Comment on above: Performed By: #### U PCR #### [facility] ([id number]) [address], [address] [place] [address] U/PRO/INJURY/SAFETY HAZARD ASSESSMENT RATIO CALC 0.07 Normal <0.2 [facility] Comment on above: Result Comment: Neph rotic Syndrome is associated with ratios >3.5 Performed By: #### U PCR #### [facility] ([id number]) [address], [address] [place] [address] URINE CREATININE,RDM 153.25 mg/dL Normal Pr [facility] Comment on above: Performed By: #### U PCR #### [facility] ([id number]) [address], [address] [place] [address] CBC AND AUTO DIFFon 08-19-20 ABSOLUTE BASOPHIL 0.0 X10E9/L Normal 0.0-0.2 [facility] Comment on above: Performed By: #### C BCA #### [facility] ([id number]) [address] [place] [address] [place] [address] #### CMP, 01785-7 #### [facility] ([id number]) [address] [place] [address] #### 2039-6 #### [facility] ([id number]) [address], [address] [place] [address] ABSOLUTE NEUTROPHIL 1.5 X10E9/L Normal 1.5-6.6 [facility] Comment on above: Performed By: #### C BCA #### [facility] ([id number]) [facility] [place] [address] #### CMP, 57890-3 #### [facility] ([id number]) [address] [place] [address] #### 9-6 #### [facility] ([id number]) [address], [address] [place] [address] Basophils/100 WBC (Bld) 1.2 % Normal [facility] Comment on above: Performed By: #### C BCA #### [facility] ([id number]) [address] [place] [address] #### CMP, 78374-2 #### [facility] ([id number]) [address] [place] [address] #### 9-6 #### [facility] ([id number]) [address] [place] [address] Eosinophils (Bld) [#/Vol] 0.1 10*3/uL Normal 0.0-0.4 [facility] Comment on above: Performed By: #### C BCA #### [facility] ([id number]) [address] [place] [address] #### CMP, 64072-8 #### [facility] ([id number]) [address] [place] [address] #### 9-6 #### [facility] ([id number]) [address] [place] [address] Eosinophils/100 WBC (Bld) 3.8 % Normal [facility] Comment on above: Performed By: #### C BCA #### [facility] ([id number]) [address] [place] [address] #### CMP, 07113-4 #### [facility] ([id number]) [address] [place] [address] #### 9-6 #### [facility] ([id number]) [address] [place] [address] Erythrocyte distribution width (RBC) [Ratio] 16.6 % High 11.5-15.0 [facility] Comment on above: Performed By: #### C BCA #### [facility] ([id number]) [address] [place] [address] [place] [address] #### CMP, 12871-1 #### [facility] ([id number]) [address] [place] [address] #### 9-6 #### [facility] ([id number]) [address] [facility] [place] [address] Hematocrit (Bld) [Volume fraction] 33.8 % Low 39-49 [facility] Comment on above: Performed By: #### C BCA #### [facility] ([id number]) [address] [place] [address] [place] [address] #### CMP, 35714-7 #### [facility] ([id number]) [address] [place] [address] #### 2038-6 #### [facility] ([id number]) [address] [facility] [place] [address] Hemoglobin (Bld) [Mass/Vol] 11.6 g/dL Low 13.0-17.0 [facility] Comment on above: Performed By: #### C BCA #### [facility] ([id number]) [address] [place] [address] [place] [address] #### CMP, 15820-1 #### [facility] ([id number]) [address] [place] [address] #### 2038-6 #### [facility] ([id number]) [address] [facility] [place] [address] Lymphocytes (Bld) [#/Vol] 0.4 10*3/uL Low 1.0-3.5 [facility] Comment on above: Performed By: #### C BCA #### [facility] ([id number]) [address] [place] [address] [place] [address] #### CMP, 84184-4 #### [facility] ([id number]) [address] [place] [address] #### 2038-6 #### [facility] ([id number]) [address] [facility] [place] [address] Lymphocytes/100 WBC (Bld) 16.8 % Normal [facility] Comment on above: Performed By: #### C BCA #### [facility] ([id number]) [address] [place] [address] [place] [address] #### EMMANUEL, #### [facility] ([id number]) [address] [place] [address] #### 2039-01 #### [facility] ([id number]) [address] [facility] [place] [address] MCH (RBC) [Entitic mass] 32.2 pg Normal 27-34 [facility] Comment on above: Performed By: #### C BCA #### [facility] ([id number]) [address] [place] [address] [place] [address] #### EMMANUEL, #### [facility] ([id number]) [address] [place] [address] #### 2038-6 #### [facility] ([id number]) [address] [facility] [place] [address] MCHC (RBC) [Mass/Vol] 34.4 g/dL Normal 32-36 [facility] Comment on above: Performed By: #### C BCA #### [facility] ([id number]) [address] [place] [address] [place] [address] #### CMP, #### [facility] ([id number]) [address] [place] [address] #### 9-6 #### [facility] ([id number]) [address] [place] [address] MCV (RBC) [Entitic vol] 94 fL Normal 80-100 [facility] Comment on above: Performed By: #### C BCA #### [facility] ([id number]) [address] [place] [address] #### CMP, 02195-4 #### [facility] ([id number]) [address] [place] [address] #### 2038-6 #### [facility] ([id number]) [address] [place] [address] Monocytes (Bld) [#/Vol] 0.2 10*3/uL Normal 0-0.9 [facility] Comment on above: Performed By: #### C BCA #### [facility] ([id number]) [address] [place] [address] #### CMP, #### [facility] ([id number]) [address] [place] [address] #### 6 #### [facility] ([id number]) [address] [facility] [place] [address] Monocytes/100 WBC (Bld) 11.0 % Normal [facility] Comment on above: Performed By: #### C BCA #### [facility] ([id number]) [address] [place] [address] #### CMP, #### [facility] ([id number]) [address] [place] [address] #### 2038- #### [facility] ([id number]) [address] [place] [address] Neutrophils/100 WBC (Bld) 67.2 % Normal [facility] Comment on above: Performed By: #### Heather BCA #### [facility] ([id number]) [address] [place] [address] [place] [address] #### CMP, 77490-2 #### [facility] ([id number]) [address] [place] [address] #### 9-6 #### [facility] ([id number]) [address] [facility] [place] [address] Platelet mean volume (Bld) [Entitic vol] 6.9 fL Low 7-12 [facility] Comment on above: Performed By: #### Heather BCA #### [facility] ([id number]) [address] [place] [address] [place] [address] #### CMP, 16193-9 #### [facility] ([id number]) [address] [place] [address] #### 9-6 #### [facility] ([id number]) [address] [place] [address] Platelets (Bld) [#/Vol] 139 10*3/uL Low 150-450 [facility] Comment on above: Performed By: #### Heather BCA #### [facility] ([id number]) [address] [place] [address] [place] [address] #### CMP, 19942-9 #### [facility] ([id number]) [address] [place] [address] #### 9-6 #### [facility] ([id number]) [address] [place] [address] RBC COUNT 3.61 X10E12/L Low 4.10-5.70 [facility] Comment on above: Performed By: #### C BCA #### [facility] ([id number]) [address] [place] [address] [place] [address] #### EMMANUEL, 31649-5 #### [facility] ([id number]) [address] [place] [address] 15261 #### 9-6 #### [facility] ([id number]) [address] [facility] [place] [address] WBC (Bld) [#/Vol] 2.2 10*3/uL Low 4.0-11.0 [facility] Comment on above: Performed By: #### C BCA #### [facility] ([id number]) [address] [place] [address] [place] [address] #### EMMANUEL, 19291-9 #### [facility] ([id number]) [address] [place] [address] 19642 #### 6 #### [facility] ([id number]) [address] [place] [address], [address] [place] [address] COMPREHENSIVE METABOLIC PANE Michael 08-19-2023 Albumin [Mass/Vol] 3.9 g/dL Normal 3.2-5.3 [facility] Comment on above: Performed By: #### C BCA #### [facility] ([id number]) [address] [place] [address] [place] [address] #### CMP, 44869-2 #### [facility] ([id number]) [address] [place] [address] #### 9-6 #### [facility] ([id number]) [address] [place] [address], [address] [place] [address] ALP [Catalytic activity/Vol] 107 U/L Normal 39-130 [facility] Comment on above: Performed By: #### C BCA #### [facility] ([id number]) [address] [place] [address] [place] [address] #### CMP, 84178-1 #### [facility] ([id number]) [address] [place] [address] #### 2038-6 #### [facility] ([id number]) [address] [place] [address] ALT [Catalytic activity/Vol] 34 U/L Normal 0-40 [facility] Comment on above: Performed By: #### C BCA #### [facility] ([id number]) [address] [place] [address] [place] [address] #### CMP, 47283-7 #### [facility] ([id number]) [address] [place] [address] #### 6 #### [facility] ([id number]) [address] [facility] [place] [address] Anion gap [Moles/Vol] 8 mmol/L Normal 5-15 [facility] Comment on above: Performed By: #### C BCA #### [facility] ([id number]) [address] [place] [address] [place] [address] #### EMMANUEL, 13136-2 #### [facility] ([id number]) [address] [place] [address] 90663 #### 2039-01 #### [facility] ([id number]) [address] [place] [address] AST [Catalytic activity/Vol] 31 U/L Normal 0-41 [facility] Comment on above: Performed By: #### C BCA #### [facility] ([id number]) [address] [place] [address] #### CMP, 63150-4 #### [facility] ([id number]) [address] [place] [address] #### 2039-01 #### [facility] ([id number]) [address] [place] [address] Bilirubin [Mass/Vol] 1.8 mg/dL High 0.3-1.2 [facility] Comment on above: Performed By: #### C BCA #### [facility] ([id number]) [address] [place] [address] #### CMP, 10673-4 #### [facility] ([id number]) [address] [place] [address] 11546 #### 9-6 #### [facility] ([id number]) [address] [place] [address] Calcium [Mass/Vol] 8.7 mg/dL Normal 8.5-10.5 [facility] Comment on above: Performed By: #### C BCA #### [facility] ([id number]) [address] [place] [address] #### CMP, 98125-7 #### [facility] ([id number]) [address] [place] [address] 35725 #### 9-6 #### [facility] ([id number]) [address] [place] [address] Chloride [Moles/Vol] 104 mmol/L Normal 98-109 [facility] Comment on above: Performed By: #### C BCA #### [facility] ([id number]) [address] [place] [address] #### CMP, 50143-2 #### [facility] ([id number]) [address] [place] [address] #### 9-6 #### [facility] ([id number]) [address] [place] [address] CO2 [Moles/Vol] 24 mmol/L Normal 22-32 [facility] Comment on above: Performed By: #### C BCA #### [facility] ([id number]) [address] [place] [address] [place] [address] #### CMP, 62625-7 #### [facility] ([id number]) [address] [place] [address]69 #### 9-6 #### [facility] ([id number]) [address] [facility] [place] [address] Creatinine [Mass/Vol] 0.87 mg/dL Normal 0.70-1.20 [facility] Comment on above: Result Comment: METH OD TRACEABLE TO IDMS STANDARD Performed By: #### C BCA #### [facility] ([id number]) [address] [place] [address] [place] [address] #### CMP, 00002-6 #### [facility] ([id number]) [address] [place] [address] 12724 #### 9-6 #### [facility] ([id number]) [address] [facility], [address] [place] [address] eGFR (CKD-EPI) NON-RACE DEPENDENT >90 Normal >59 [facility] Comment on above: Result Comment: Reported eGFR is based on the CKD-EPI 2020 equation that does not use a race coefficient. Performed By: #### C BCA #### [facility] ([id number]) [address] [place] [address] [place] [address] #### CMP, 01634-4 #### [facility] ([id number]) [address] [place] [address] 80908 #### 9-6 #### [facility] ([id number]) [address] [facility] [place] [address] Glucose [Mass/Vol] 132 mg/dL High 65-99 [facility] Comment on above: Performed By: #### C BCA #### [facility] ([id number]) [address] [place] [address] [place] [address] #### EMMANUEL, 81330-8 #### [facility] ([id number]) [address] [place] [address] #### 9-6 #### [facility] ([id number]) [address] [facility] [place] [address] Potassium [Moles/Vol] 3.8 mmol/L Normal 3.5-5.0 [facility] Comment on above: Performed By: #### C BCA #### [facility] ([id number]) [address] [place] [address] [place] [address] #### EMMANUEL, 90280-4 #### [facility] ([id number]) [address] [place] [address] 33062 #### 2038-6 #### [facility] ([id number]) [address] [facility] [place] [address] Protein [Mass/Vol] 6.5 g/dL Normal 6.0-8.0 [facility] Comment on above: Performed By: #### C BCA #### [facility] ([id number]) [address] [place] [address] [place] [address] #### EMMANUEL, 84329-9 #### [facility] ([id number]) [address] [place] [address] #### 2038-6 #### [facility] ([id number]) [address] [facility] [place] [address] Sodium [Moles/Vol] 136 mmol/L Normal 134-146 [facility] Comment on above: Performed By: #### C BCA #### [facility] ([id number]) [address] [place] [address] [place] [address] #### CMP, #### [facility] ([id number]) [address] [place] [address] #### 2039-6 #### [facility] ([id number]) [address] [place] [address] Urea nitrogen [Mass/Vol] 12 mg/dL Normal 5-27 [facility] Comment on above: Performed By: #### C BCA #### [facility] ([id number]) [address] [facility] [place] [address] #### CMP, 70501-0 #### [facility] ([id number]) [address] [place] [address] 16027 #### 2039-6 #### [facility] ([id number]) [address] [facility] [place] [address] Carcinoembryonic Ag [Mass/Vo l]on 08-19-2023 CEA 35.5 ng/mL High 0.0-3.0 [facility] Comment on above: Result Comment: 0.0-3.0 ng/mL FOR NON SMOKERS 0.0-5.0 ng/mL FOR SMOKERS The method used for this test is Rebekah Tanvir DXI chemiluminescent immunoassay. Values obtained by different assay methods cannot be used interchangeably. Performed By: #### C BCA #### [facility] ([id number]) [address] [facility] [place] [address] #### CMP, 79351-0 #### [facility] ([id number]) [address] [place] [address] #### 2039-6 #### [facility] ([id number]) [address] [facility] [place] [address] MAGNESIUMon 08-19-2023 Magnesium [Mass/Vol] 2.2 mg/dL Normal 1.8-2.6 [facility] Comment on above: Performed By: #### C BCA #### [facility] ([id number]) [address] [facility] [address] #### CMP, 79307-9 #### [facility] ([id number]) [address] [place] [address], [place] [address] #### 2039-6 #### [facility] ([id number]) [address] [facility] [facility] [address] [place] [address] PROTEIN CREAT RATIOon 2022 RANDOM URINE PROTEIN <40 Normal <120 [facility] Comment on above: Performed By: #### U PCR #### [facility] ([id number]) [address] [place] [address] U/PRO/INJURY/SAFETY HAZARD ASSESSMENT RATIO CALC NOT CALCULATED Normal <0.2 [facility] Comment on above: Result Comment: Result for Protein/Creatinine Ratio cannot be reliably calculated because urine total protein and or urine creatinine is below the detection limit of the assay. Performed By: #### U PCR #### [facility] ([id number]) [address] [place] [address], [facility] [address] [place] [address] URINE CREATININE,RDM 49.68 mg/dL Normal [facility] Comment on above: Performed By: #### U PCR #### [facility] ([id number]) [address] [place] [address], [facility] [address] [place] [address] Office Visiton 08-08-2023 Follow-up visit [id number] Ruben Fagan 1960 M Date Provider Department Center 08/08/2023 YAN PABON BARRIE Hess Family History Problem Relation Age of Onset Diabetes Mother Coronary artery disease Mother Hypertension Mother Diabetes type II Father Hypertension Father Coronary artery disease Father Stroke Father Coronary artery disease Brother Family Status - Relation Status Age at Mother Father Brother Level of Service:72830 NC OFFICE/OUTPATIENT ESTABLISHED LOW MDM 20-29 MIN Normal [facility] CNOVon 06-19-2023 CNOV Office Visit (RADTSA ) CHRIS FAGAN ([id number]) 1960 M Date Time Provider Department 06/19/23 11:00 AM Jean-Claude CABRERA During your visit today, we recorded the following information about you: Jean-Claude Cabrera MD 06/24/2023 2:19 PM Signed Radiation Oncology -simulation note PATIENT NAME: Chris Fagan PATIENT REQUESTING PROVIDER: Dr. Isaak Heard. DIAGNOSIS: Rectal cancer with liver and solitary lung metastasis MRI demonstrating multiple enhancing lesions including 5.5 x 5.2 cm posterior right hepatic lobe, lesion along right hepatic lobe near 7 capsular area near prior ablation measuring 1.5 cm also 1.5 cm near gallbladder fossa and subcapsular lesions within the right hepatic lobe measuring 5 to 6 mm. The area of lower right hepatic lobe uptake on PET without any obvious corresponding lesion. In review of CT from simulation today several new lung lesions and increased size of left pulmonary lesions seen. Given these findings do not feel SBRT warranted at this time. Discussed with Dr. Heard. Could consider SBRT for consolidation in the future especially the larger hepatic lesion. Signed by: Jean-Claude Cabrera MD cc: Isaak Heard MD [address] [facility] [address] [facility] [address] Allergies As of Date: 06/19/2023 Noted Allergy Reaction LISINOPRIL 05/21/2023 14 - Other: See Comments Comments: Headache Date Reviewed: 05/21/2023 Reviewed by: Nicky Padilla LPN - Fully Assessed Reason for Visit: Simulation Request Form [5403] Primary Visit Diagnosis:Cancer, metastatic to liver (HCC) [C78.7] Order(s):RADIATION TREATMENT PER RADIATION ONCOLOGIST PLAN [7821718] Order #: [id number]: 1 PT ED CANCER [[id number]] Order #: [id number]: 1 CONTRAST MEDIA [[id number]] Order #: [id number] INSERT IV ([place]) [[id number]] Order #: [id number]: 1 IV DISCONTINUE [[id number]] Order #: [id number]: 1 Prescriptions as of 06/24/2023 - aspirin, enteric coated (ASPIRIN, ENTERIC COATED) 81 mg EC tablet Take 81 mg by mouth. - atorvastatin (LIPITOR) 40 mg tablet Take 1 tablet by mouth once daily. - BREZTRI AEROSPHERE 160-9-4.8 mcg/actuation HFA aerosol inhaler - capecitabine (XELODA) 500 mg tablet - cholecalciferol (VITAMIN D3) 50 mcg (2,000 unit) tablet - clopidogrel (PLAVIX) 75 mg tablet Take 75 mg by mouth. - cyclobenzaprine (FLEXERIL) 10 mg tablet Take 10 mg by mouth. - fluticasone (FLONASE) 50 mcg/actuation nasal spray Use 1 [place] in the nose. - losartan (COZAAR) 50 mg tablet Take 50 mg by mouth. - magnesium citrate 100 mg cap Take 100 mg by mouth. - metoprolol tartrate, short acting, (LOPRESSOR) 25 mg tablet Take 1 tablet by mouth twice daily. - omega-3 fatty acids 1,000 mg cap Take 1,000 mg by mouth. - ondansetron (ZOFRAN) 8 mg tablet Take 1 tablet by mouth twice daily as needed for severe nausea or vomiting. - oxyCODONE IR (ROXICODONE) 5 mg immediate release tablet - pantoprazole DR (PROTONIX) 40 mg tablet Take 40 mg by mouth. - prochlorperazine (COMPAZINE) 10 mg tablet Take 1 tablet by mouth every 6 hours as needed for mild nausea or vomiting. - ranolazine ER (RANEXA) 500 mg 12 hr tablet - nitroglycerin sublingual (NITROQUICK) 0.[address] 1 tablet as needed by sublingual route as directed. Problem List As Of Date: 06/19/2023 (None) Encounter Status:Closed by Jean-Claude CABRERA on 06/24/23 Normal [facility] MR ABDOMEN W AND WO CONTRAST on 06-11-2023 MR ABDOMEN W AND WO CONTRAST Study: MR ABDOMEN W AND WO CONTRAST Sign And Symptoms:Rectal neoplasm, liver mass, assess malignant potential, staging, restaging, metastatic colon cancer . WITH EOVIST Comparison: None. TECHNIQUE: Multiplanar multisequence MRI of the abdomen performed prior to and following uneventful ministration of Eovist gadolinium contrast. Findings: No pleural or pericardial effusions lung bases. No abdominal ascites is seen. Small hiatal hernia. No renal collecting system dilatation. Bilateral renal cysts are noted which require no additional follow-up imaging. Aorta is normal in caliber. There are multiple enhancing lesions identified. The largest post anterior subcapsular right hepatic lobe lesion demonstrates heterogeneous enhancement signal characteristics concerning for metastatic disease and/or potential recurrent or residual neoplasm. There is reported history of potential ablation however no prior imaging is available. This lesion measures 5.5 x 5.2 cm. There is a subcapsular lesion along the anterior right hepatic lobe near the site of prior ablation measuring 1.5 cm. The lesion within the inferior right hepatic lobe adjacent to the gallbladder fossa measuring 1.5 cm on image #22. There are subcapsular lesions in the right hepatic lobe measuring 5 to 6 mm on image #42 and 45 which could be metastatic or sequela prior ablation. IMPRESSION: Impression: *Multiple hepatic lesions as above with several lesions concerning for possible new or progressive hepatic metastatic disease. There is a reported history of prior hepatic ablation however no prior imaging is available and clinical correlation is recommended. Electronically signed: Tacho Aguilar. [facility] Comment on above: Order Comment: ORDER IN [facility] 05-27-2023 [facility] CHRIS FAGAN ([id number]) 1960 M Date Time Provider Department 05/27/23 Jean-Claude CABRERA During your visit today, we recorded the following information about you: Berenice Gaffney 05/27/2023 10:17 AM Signed Patient is scheduled 06/11 for his MRI, when would you like his SIM scheduled? Berenice Gaffney 05/28/2023 12:24 PM Signed Patient is called and scheduled. Allergies As of Date: 05/27/2023 Noted Allergy Reaction LISINOPRIL 05/21/2023 14 - Other: See Comments Comments: Headache Date Reviewed: 05/21/2023 Reviewed by: Nicky Padilla LPN - Fully Assessed Reason for Visit: Appointment Confirmation [[id number]] Prescriptions as of 05/29/2023 - aspirin, enteric coated (ASPIRIN, ENTERIC COATED) 81 mg EC tablet Take 81 mg by mouth. - atorvastatin (LIPITOR) 40 mg tablet Take 1 tablet by mouth once daily. - BREZTRI AEROSPHERE 160-9-4.8 mcg/actuation HFA aerosol inhaler - capecitabine (XELODA) 500 mg tablet - cholecalciferol (VITAMIN D3) 50 mcg (2,000 unit) tablet - clopidogrel (PLAVIX) 75 mg tablet Take 75 mg by mouth. - cyclobenzaprine (FLEXERIL) 10 mg tablet Take 10 mg by mouth. - fluticasone (FLONASE) 50 mcg/actuation nasal spray Use 1 [place] in the nose. - losartan (COZAAR) 50 mg tablet Take 50 mg by mouth. - magnesium citrate 100 mg cap Take 100 mg by mouth. - metoprolol tartrate, short acting, (LOPRESSOR) 25 mg tablet Take 1 tablet by mouth twice daily. - omega-3 fatty acids 1,000 mg cap Take 1,000 mg by mouth. - ondansetron (ZOFRAN) 8 mg tablet Take 1 tablet by mouth twice daily as needed for severe nausea or vomiting. - oxyCODONE IR (ROXICODONE) 5 mg immediate release tablet - pantoprazole DR (PROTONIX) 40 mg tablet Take 40 mg by mouth. - prochlorperazine (COMPAZINE) 10 mg tablet Take 1 tablet by mouth every 6 hours as needed for mild nausea or vomiting. - ranolazine ER (RANEXA) 500 mg 12 hr tablet - nitroglycerin sublingual (NITROQUICK) 0.[address] 1 tablet as needed by sublingual route as directed. Problem List As Of Date: 05/27/2023 (None) Encounter Status:Closed by BERENICE GAFFNEY on 05/29/23 [facility] CNOVon 05-21-2023 CNOV Office Visit ([facility] ) CHRIS FAGAN ([id number]) 1960 M Date Time Provider Department 05/21/23 2:30 PM Jean-Claude CABRERA During your visit today, we recorded the following information about you: Temperature Pulse Respiration Blood pressure 97.4 degrees 60/minute 16/minute 115/78 Weight 99.8 kg Jean-Claude Cabrera MD 05/28/2023 2:07 PM Signed Radiation Oncology - New Patient/Consult Note PATIENT NAME: Chris Fagan PATIENT REQUESTING PROVIDER: Dr. Isaak Heard. DIAGNOSIS: Rectal cancer with liver and solitary lung metastasis HPI: 63 year old male who presents with above diagnosis, for an opinion regarding the role of radiation therapy in the management of the patient's disease. Final recommendations will be communicated back to the requesting physician by way of the shared medical record, or letter to requesting physician via US mail. Patient with known history of rectal cancer initially diagnosed 2018, with finding of a distal rectal tumor. Staging with PET without evidence of metastasis. He received concurrent chemotherapy and radiation (left Xeloda) completing in July 2019. He underwent resection in October 2019 with finding of residual moderately differentiated adenocarcinoma with muscularis propria invasion, margins clear, involvement of 6 of 28 lymph nodes removed. He subsequently received adjuvant FOLFOX in December through August 2020. He was found to have liver involvement and underwent partial liver resection in October 2021. He did well until he was noted to have a rising CEA in June 2022. He was found to have new liver lesion and underwent ablation of segment 7 lesion and was started on further chemotherapy with irinotecan and Xeloda He underwent PET/CT for restaging in November 2022, which demonstrated nonspecific area within the cecum, no suspicious pelvic or resection bed activity, no suspicious activity within the liver, no activity within 2 solid-appearing lung nodules including left upper lobe and right lower lobe (which measure up to 7 mm). Further imaging in April with PET scan demonstrating uptake within segment 7 of the liver at the focus of previous ablation, previously 2.4 SUV, now measuring 5.2. An additional area in segment 4. Right lower lobe nodule increased in size, also with development of increased metabolic activity. Additional 5 mm nodule left lingula below the threshold for FDG uptake. Left upper lobe nodules without significant change. Patient underwent recent colonoscopy without areas suspicious suspicion including to the cecum. Also of note patient CEA has been rising, most recent value 05/06/2023 was 78.8 (59.8 in March, 34.2 in January, 11.1 in November). Currently on systemic treatment with Xeloda 3 twice daily. Having more difficulty with tolerance. Here today to discuss potential SBRT to the areas of oligometastatic disease putting 1 lung and 2 liver lesions. ALLERGIES Allergen Reactions Lisinopril Other: See Comments Headache Current Outpatient Medications on File Prior to Visit Medication Sig aspirin, enteric coated (ASPIRIN, ENTERIC COATED) 81 mg EC tablet Take 81 mg by mouth. atorvastatin (LIPITOR) 40 mg tablet Take 1 tablet by mouth once daily. BREZTRI AEROSPHERE 160-9-4.8 mcg/actuation HFA aerosol inhaler capecitabine (XELODA) 500 mg tablet cholecalciferol (VITAMIN D3) 50 mcg (2,000 unit) tablet clopidogrel (PLAVIX) 75 mg tablet Take 75 mg by mouth. cyclobenzaprine (FLEXERIL) 10 mg tablet Take 10 mg by mouth. fluticasone (FLONASE) 50 mcg/actuation nasal spray Use 1 [place] in the nose. losartan (COZAAR) 50 mg tablet Take 50 mg by mouth. magnesium citrate 100 mg cap Take 100 mg by mouth. metoprolol tartrate, short acting, (LOPRESSOR) 25 mg tablet Take 1 tablet by mouth twice daily. omega-3 fatty acids 1,000 mg cap Take 1,000 mg by mouth. ondansetron (ZOFRAN) 8 mg tablet Take 1 tablet by mouth twice daily as needed for severe nausea or vomiting. oxyCODONE IR (ROXICODONE) 5 mg immediate release tablet pantoprazole DR (PROTONIX) 40 mg tablet Take 40 mg by mouth. prochlorperazine (COMPAZINE) 10 mg tablet Take 1 tablet by mouth every 6 hours as needed for mild nausea or vomiting. ranolazine ER (RANEXA) 500 mg 12 hr tablet nitroglycerin sublingual (NITROQUICK) 0.[address] 1 tablet as needed by sublingual route as directed. No current facility-administered medications on file prior to visit. Prior radiation therapy, collagen vascular disease, or inflammatory bowel disease: Yes Any implanted or external electric devices? No PAST SURGICAL HISTORY Procedure Laterality Date PAST SURGICAL HISTORY OF resection liver lesion TONSILLECTOMY AND ADENOIDECTOMY FAMILY HISTORY Problem Relation Age of Onset Lymphoma Mother Social History Tobacco Use Smoking status: Former Packs/day: 2.50 (more content not included)... Normal [facility] 36on 05-16-2023 36 Lm Normal [facility] 36on 03-23-2023 36 His echo from 02/28/2023 is within normal limits. If he's feeling ok then follow up in 6 months. Normal [facility] Telephoneon 03-23-2023 Telephone [id number] Ruben Fagan 1960 M Date Provider Department Center 03/23/2023 YAN PABON Family History Problem Relation Age of Onset Diabetes Mother Coronary artery disease Mother Hypertension Mother Diabetes type II Father Hypertension Father Coronary artery disease Father Stroke Father Coronary artery disease Brother Family Status - Relation Status Age at Mother Father Brother [facility] Office Visiton 02-12-2023 Follow-up visit [id number] Ruben Fagan 1960 M Date Provider Department Center 02/12/2023 YAN PABON Family History Problem Relation Age of Onset Diabetes Mother Coronary artery disease Mother Hypertension Mother Diabetes type II Father Hypertension Father Coronary artery disease Father Stroke Father Coronary artery disease Brother Family Status - Relation Status Age at Mother Father Brother Level of Service:08142 NC OFFICE/OUTPATIENT ESTABLISHED MOD MDM 30-39 MIN Normal [facility] CREATININE BLOODon 2 Creatinine [Mass/Vol] 0.89 mg/dL Normal 0.70-1.30 [facility] Comment on above: Order Comment: No: D o not add to previous draw Performed By: #### 2 [id number] #### [facility] [address] [facility] [place] [address], [facility] GFR/1.73 sq M.predicted among blacks MDRD (S/P/Bld) [Vol rate/Area] mL/min/{1.73_m2} Normal >60 [facility] Comment on above: Order Comment: No: D o not add to previous draw Performed By: #### 2 5656 #### [facility] [address] [facility] [place] [address], [facility] GFR/1.73 sq M.predicted among non-blacks MDRD (S/P/Bld) [Vol rate/Area] mL/min/{1.73_m2} Normal >60 [facility] Comment on above: Order Comment: No: D o not add to previous draw Performed By: #### 2 5656 #### [facility] [address] Cardiovascular Lab Reporton 12-05-2021 Cardiovascular Lab Report [facility] Patient Name: Chris Fagan MR #: [id number] [facility] Physician: Yan Moscoso M.D. Department of Service Date: 12/04/2021 Medicine Birthdate: 1960 Division of Room #: 5AB [id number] Cardiology Adult Cardiovascular Services [place] [address] Cardiovascular Laboratory Report INDICATION: The patient is a 61-year-old man with prior history of coronary artery disease, status post stenting and bypass surgery in the past. He was recently evaluated in Cardiology Clinic because of recurrent symptoms of chest pain at rest, requiring multiple sublingual nitroglycerin with relief after sublingual nitroglycerin. He also reported shortness of breath on exertion. Because of that, he was referred for cardiac catheterization. PROCEDURE: 1. Right heart catheterization. 2. Bilateral selective coronary angiography. 3. Bypass graft angiography. 4. Access into the right common femoral artery under ultrasound guidance. 5. Limited right common femoral angiography. 6. Successful balloon dilatation and drug-eluting stenting of 85% stenosis in the proximal 1st diagonal branch, reduced to 0% by deployment of a Synergy XD 2.25 x 16 mm drug-eluting stent, post dilated to 2.5 mm at high pressures. 7. Administration of intracoronary nitroglycerin. METHODS: Procedure was explained to the patient with risks and benefits. He signed the consent. He was brought to chemical laboratory chief in a fasting state. The right groin area was prepped and draped in usual fashion. Micropuncture technique and ultrasound guidance were used for access in the right common femoral artery. Inner cannula angiography was performed, followed by upsizing over an Amplatz Super Stiff wire to a 5-Polish x 11 cm sheath. Access was obtained using same technique in the right common femoral vein. A 6-Polish x 11 cm sheath was placed. A 6-Polish Myles catheter was used for right catheterization with measurement of pressures and calculation of cardiac output using the estimated Carol method. Myles catheter was removed. Bilateral selective coronary angiography was then performed using 5-Polish JL4 and JR4 diagnostic catheters. Catheters were removed. The 5-Polish JR4 diagnostic catheter was used to selectively engage the radial graft sequential to diagonal #2 and OM2, catheter was removed. A 6-Polish RHIANNA catheter was used to selectively engage the left subclavian artery and then selectively engage the left internal mammary artery. Angiography was performed. Catheter was removed. Heparin was administered intravenously and therapeutic ACT confirmed during the rest of the procedure. The femoral arterial sheath was upsized to a 6-Polish x 11 cm sheath over the Amplatz Super Stiff wire. A 6-Polish XB3.5 guiding catheter was advanced and used to engage the left main coronary ostium. A Prowater wire was advanced into the first diagonal branch. Balloon angioplasty in the proximal diagonal branch was performed using NC Emerge 2.0 x 15 mm balloon inflated at 12 atmospheres, followed by deployment of a Synergy XD 2.25 x 16 mm drug-eluting stent deployed at 11 atmospheres and post dilated using NC Emerge 2.5 x 12 mm noncompliant balloon inflated at 18 atmospheres. Final angiography after administration of intracoronary nitroglycerin showed excellent result with reduction of the stenosis to 0%. No evidence of dissection or perforation and SHERINE-3 flow in the diagonal branch, the guiding catheter was removed. The procedure was concluded. The patient was loaded with 600 mg of Plavix at the end of the procedure. He tolerated the procedure well. He was transferred to cardiovascular recovery area and the access sheath will be removed and manual compression applied for hemostasis, when the ACT is subtherapeutic. He will then be transferred to the floor for further observation and management. TOTAL SEDATION TIME: 90 minutes. TOTAL FLUORO TIME: 18.18 minutes. TOTAL AIR KERMA: 1514 mGy. TOTAL CONTRAST VOLUME: 80 mL. HEMODYNAMICS: RA 4, RV 35/0, 6. PA 31/10, mean 21. Pulmonary wedge pressure 7. AO 124/68, mean 94. Cardiac output 6.51. Cardiac index 3.06. PA sat 70%, AO sat 94%. CORONARY ANGIOGRAPHY: 1. This is a right dominant circulation. 2. Left main: This arises from left coronary cusp. It bifurcates into left anterior descending and circumflex vessels. The left main is free of disease. 3. Left anterior descending: This gives rise to a [id number] size 1st diagonal branch, that diagonal branch had a proximal 85% hazy stenosis. This was reduced to 0% by a Synergy XD drug-eluting stent. The mid LAD is then occluded. The 2nd diagonal branch is seen filling via a radial graft. The distal LAD is seen filling via a patent MINER graft. 4. Circumflex vessel: This is nondominant. It has a previously placed st (more content not included)... Normal [facility] CBC AUTO DIFFon 01-15-2021 BASO # 0.0 103/ul Normal 0.0-0.1 [facility] Comment on above: Performed By: #### C BC #### [facility] [address] [place], [place] [address] Lorie Isabel Basophils/100 WBC (Bld) 0.4 % Normal 0.2-2.0 [facility] Comment on above: Performed By: #### C BC #### [facility] [address] [place], [place] [address] Lorie Isabel EO # 0.2 103/ul Normal 0.0-0.7 [facility] Comment on above: Performed By: #### C BC #### [facility] [address] [place], [place] [address] Lorie Isabel Eosinophils/100 WBC (Bld) 5.3 % Normal 0.9-7.0 [facility] Comment on above: Performed By: #### C BC #### [facility] [address] [place] [id number] Lorie Isabel Erythrocyte distribution width (RBC) [Ratio] 14.0 % Normal 11.0-15.0 [facility] Comment on above: Performed By: #### C BC #### [facility] [address] [place] [id number] Lorie Isabel Hematocrit (Bld) [Volume fraction] 41.4 % Critically low 42.0-54.0 [facility] Comment on above: Performed By: #### C BC #### [facility] [address] [place] [id number] Lorie Isabel Hemoglobin (Bld) [Mass/Vol] 14.0 g/dL Normal 14.0-18.0 [facility] Comment on above: Performed By: #### C BC #### [facility] [address] [place] [address] Lorie Isabel IG # 0.04 10e3/ul Critically high 0.00-0.03 [facility] Comment on above: Performed By: #### C BC #### [facility] [address] [place], [place] [id number] Lorie Isabel IG % 0.9 % Critically high 0.0-0.5 [facility] Comment on above: Performed By: #### C BC #### [facility] [address] [place], [place] [id number] Lorie Isabel LYMPH # 0.8 103/ul Critically low 1.2-3.8 [facility] Comment on above: Performed By: #### C BC #### [facility] [address] [place], [place] [phone] Lorie Isabel Lymphocytes/100 WBC (Bld) 17.8 % Critically low 20.5-60.0 [facility] Comment on above: Performed By: #### C BC #### [facility] [address] [place], [place] [phone] Lorie Isabel MANUAL DIFF REQ NO Normal [facility] Comment on above: Performed By: #### C BC #### [facility] [address] [place] [id number] Lorie Hall MCH (RBC) [Entitic mass] 30.4 pg Normal 25.9-34.0 [facility] Comment on above: Performed By: #### C BC #### [facility] [address] [place] [id number] Lorie Hall MCHC (RBC) [Mass/Vol] 33.8 g/dL Normal 29.9-35.2 [facility] Comment on above: Performed By: #### C BC #### [facility] [address] [place] [id number] Loriecoco Hall MCV (RBC) [Entitic vol] 90.0 fL Normal 80.0-94.0 [facility] Comment on above: Performed By: #### C BC #### [facility] [address] [place] [address] Lorie Hall MONO # 0.5 103/ul Normal 0.3-0.8 [facility] Comment on above: Performed By: #### C BC #### [facility] [address] [place], [place] [phone] Lorie Hall Monocytes/100 WBC (Bld) 10.9 % Normal 1.7-12.0 [facility] Comment on above: Performed By: #### C BC #### [facility] [address] [place] [address] Lorie Hall NEUT # 2.9 103/ul Normal 1.4-6.5 [facility] Comment on above: Performed By: #### C BC #### [facility] [address] [place], [place] [phone] Lorie Isabel Neutrophils/100 WBC (Bld) 64.7 % Normal 43.0-75.0 [facility] Comment on above: Performed By: #### C BC #### [facility] [address] [place], [place] [phone] Lorie Isabel Platelet mean volume (Bld) [Entitic vol] 9.1 fL Critically low 9.5-13.5 [facility] Comment on above: Performed By: #### C BC #### [facility] [address] [place] [id number] Loriecoco Verdugoen PLT 182 103/ul Normal 150-450 [facility] Comment on above: Performed By: #### C BC #### [facility] [address] [place] [id number] Loriecoco Verdugoen RBC 4.60 106/ul Critically low 4.70-6.10 [facility] Comment on above: Performed By: #### C BC #### [facility] [address] [place] [id number] Lorie Isabel WBC 4.5 103/ul Normal 4.0-11.0 [facility] Comment on above: Performed By: #### C BC #### [facility] [address] [place] [id number] Lorie Hall GLYCOHEMOGLOBIN A1Con 2020 ADA RECOMMENDATION ADA THERAPEUTIC TARGET 6.0 - 7.0 ACTION SUGGESTED > 7.0 Normal [facility] Comment on above: Performed By: #### A 1C #### [facility] [address] [place] [id number] Lorie Isabel Glucose [Mass/Vol] 97 mg/dL Normal [facility] Comment on above: Performed By: #### A 1C #### [facility] [address] [place] [id number] Loriecoco Hall HbA1c (Bld) [Mass fraction] 5.0 % Normal <=6.0 [facility] Comment on above: Performed By: #### A 1C #### [facility] [address] [place] [id number] Loriecoco Hall LIPID PROFILEon 01-15-2021 CHOL-HDL RATIO NORM SEE BELOW Normal [facility] Comment on above: Result Comment: 3.3 - 4.4 LOW RISK 4.4 - 7.1 AVERAGE RISK 7.1 - 11.0 MODERATE RISK >11.0 HIGH RISK Performed By: #### T SH, LIPID, LIVER, PSASC, BMP #### [facility] [address] [place] [id number] Lorie Isabel Cholesterol [Mass/Vol] 164 mg/dL Normal <=200 [facility] Comment on above: Performed By: #### T SH, LIPID, LIVER, PSASC, BMP #### [facility] [address] [place] [id number] Lorie Isabel Cholesterol in HDL [Mass/Vol] 38 mg/dL Normal [facility] Comment on above: Performed By: #### T SH, LIPID, LIVER, PSASC, BMP #### [facility] [address] [place] [id number] Lorie Isabel Cholesterol in LDL [Mass/Vol] 65.0 mg/dL Normal [facility] Comment on above: Performed By: #### T SH, LIPID, LIVER, PSASC, BMP #### [facility] [address] [place] [address] Lorie Isabel Cholesterol.total/Cho lesterol in HDL [Mass ratio] 4.3 {ratio} Normal [facility] Comment on above: Performed By: #### T SH, LIPID, LIVER, PSASC, BMP #### [facility] [address] [place] [address] Lorie Isabel HDL NORMAL > or = 60 mg/dl - LO W CARDIOVASCULAR RISK <40 mg/dl - HIGH CARDIOVASCULAR RISK Normal [facility] Comment on above: Performed By: #### T SH, LIPID, LIVER, PSASC, BMP #### [facility] [address] [place] [address] Lorie Isabel LDL CALC NORMAL SEE BELOW Normal [facility] Comment on above: Result Comment: <100 mg/dl OPTIMAL 100 - 129 mg/dl NEAR OR ABOVE OPTIMAL 130 - 159 mg/dl BORDERLINE HIGH 160 - 189 mg/dl HIGH >190 mg/dl VERY HIGH Performed By: #### T SH, LIPID, LIVER, PSASC, BMP #### [facility] [address] [place] [address] Lorie Isabel Triglyceride [Mass/Vol] 305 mg/dL Critically high <=150 [facility] Comment on above: Performed By: #### T SH, LIPID, LIVER, PSASC, BMP #### [facility] [address] [place] [address] Lorie Isabel VLDL CALC 61.0 mg/dL Normal [facility] Comment on above: Performed By: #### T SH, LIPID, LIVER, PSASC, BMP #### [facility] [address] [place] [address] Loriecoco Verdugoen LIVER PROFILEon 01-15-2021 Albumin [Mass/Vol] 3.8 g/dL Normal 3.5-5.0 [facility] Comment on above: Performed By: #### T SH, LIPID, LIVER, PSASC, BMP #### [facility] [address] [place] [address] Lorie Isabel Albumin/Globulin [Mass ratio] 1.1 {ratio} Normal [facility] Comment on above: Performed By: #### T SH, LIPID, LIVER, PSASC, BMP #### [facility] [address] [place] [address] Lorie Isabel ALP [Catalytic activity/Vol] 128 U/L Critically high 38-126 [facility] Comment on above: Performed By: #### T SH, LIPID, LIVER, PSASC, BMP #### [facility] [address] [place] [address] Lorie Isabel ALT [Catalytic activity/Vol] 52 U/L Normal 21-72 [facility] Comment on above: Performed By: #### T SH, LIPID, LIVER, PSASC, BMP #### [facility] [address] [place] [address] Lorie Isabel AST [Catalytic activity/Vol] 29 U/L Normal 17-59 [facility] Comment on above: Performed By: #### T SH, LIPID, LIVER, PSASC, BMP #### [facility] [address] [place] [address] Lorie Isabel BILI, CONJUGATED 0.1 mg/dL Normal 0.0-0.[address] [facility] Comment on above: Performed By: #### T SH, LIPID, LIVER, PSASC, BMP #### [facility] [address] [place] [address] Lorie Isabel Bilirubin [Mass/Vol] 0.7 mg/dL Normal 0.2-1.3 [facility] Comment on above: Performed By: #### T SH, LIPID, LIVER, PSASC, BMP #### [facility] [address] [address] Lorie Isabel Globulin (S) [Mass/Vol] 3.6 g/dL Normal [facility] Comment on above: Performed By: #### T SH, LIPID, LIVER, PSASC, BMP #### [facility] [address] [place] [address] Lorie Isabel Protein [Mass/Vol] 7.4 g/dL Normal 6.1-8.2 [facility] Comment on above: Performed By: #### T SH, LIPID, LIVER, PSASC, BMP #### [facility] [address] [address] Lorie Isabel PROF CHEM 8 (BAS METB)on Anion gap [Moles/Vol] 11.6 mmol/L Normal [facility] Comment on above: Performed By: #### T SH, LIPID, LIVER, PSASC, BMP #### [facility] [address] [address] Lorie Isabel Calcium [Mass/Vol] 9.1 mg/dL Normal 8.4-10.2 [facility] Comment on above: Performed By: #### T SH, LIPID, LIVER, PSASC, BMP #### [facility] [address] [place] [address] Lorie Isabel Chloride [Moles/Vol] 104 mmol/L Normal 98-107 [facility] Comment on above: Performed By: #### T SH, LIPID, LIVER, PSASC, BMP #### [facility] [address] [place] [address] Lorie Isabel CO2 [Moles/Vol] 29.5 mmol/L Normal 22.0-30.0 [facility] Comment on above: Performed By: #### T SH, LIPID, LIVER, PSASC, BMP #### [facility] [address] [place] [address] Lorie Isabel Creatinine [Mass/Vol] 0.97 mg/dL Normal 0.66-1.25 [facility] Comment on above: Performed By: #### T SH, LIPID, LIVER, PSASC, BMP #### [facility] [address] [id number] Lorie Isabel EGFR-AF SALVADOREAN >60 Normal >=[address] [facility] Comment on above: Performed By: #### T SH, LIPID, LIVER, PSASC, BMP #### [facility] [address] [address] Lorie Isabel EGFR-NON AF SALVADOREAN >60 Normal >=60 [facility] Comment on above: Performed By: #### T SH, LIPID, LIVER, PSASC, BMP #### [facility] [address] [address] Lorie Isabel Glucose [Mass/Vol] 103 mg/dL Normal 74-106 [facility] Comment on above: Performed By: #### T SH, LIPID, LIVER, PSASC, BMP #### [facility] [address] [place] [address] Lorie Isabel Potassium [Moles/Vol] 4.1 mmol/L Normal 3.4-5.0 [facility] Comment on above: Performed By: #### T SH, LIPID, LIVER, PSASC, BMP #### [facility] [address] [place] [address] Lorie Isabel Sodium [Moles/Vol] 141 mmol/L Normal 137-145 [facility] Comment on above: Performed By: #### T SH, LIPID, LIVER, PSASC, BMP #### [facility] [address] [place] [address] Lorie Isabel Urea nitrogen [Mass/Vol] 11.0 mg/dL Normal 9.0-20.0 [facility] Comment on above: Performed By: #### T SH, LIPID, LIVER, PSASC, BMP #### [facility] [address] [place] [address] Lorie Isabel Urea nitrogen/Creatinine [Mass ratio] 11.3 mg/mg Normal [facility] Comment on above: Performed By: #### T SH, LIPID, LIVER, PSASC, BMP #### [facility] [address] [place] [address] Lorie Isabel TSHon 01-15-2021 TSH 1.618 uIU/mL Normal 0.470-4.680 [facility] Comment on above: Performed By: #### T SH, LIPID, LIVER, PSASC, BMP #### [facility] [address] [address] Lorie Hall TSH RANGE SEE BELOW Normal [facility] Comment on above: Result Comment: <0.3 4 UIU/ml HYPERTHYROID 0.34-5.60 UIU/ml EUTHYROID >5.60 UIU/ml HYPOTHYROID Performed By: #### T SH, LIPID, LIVER, PSASC, BMP #### [facility] [address] [address] Lorie Hall VITAMIN D 25 OHon 01-15-2021 VIT D 25-OH 15.2 ng/mL Normal [facility] Comment on above: Performed By: #### V ITAD #### [facility] [address] [place] [address] Lorie Isabel VIT D RANGES SEE BELOW Normal [facility] Comment on above: Result Comment: <20 ng/mL Vit D deficient 20 - <30 ng/mL Vit D insufficient 30 - 100 ng/mL Vit D sufficient >100 ng/mL Potential Toxicity Performed By: #### V ITAD #### [facility] [address] [place] [address] Lorie Hall COVID-19 PCRon 07-12-2020 SARS-CoV-2 (COVID-19) RNA GABRIELA+probe Ql (Unsp spec) Detected Abnormal Not Detected [facility] Comment on above: Result Comment: This nucleic acid amplification test was developed and its performance characteristics determined by [employer]. Nucleic acid amplification tests include PCR and TMA. This test has not been FDA cleared or approved. This test has been authorized by FDA under an Emergency Use Authorization (EUA). This test is only authorized for the duration of time the declaration that circumstances exist justifying the authorization of the emergency use of in vitro diagnostic tests for detection of SARS-CoV-2 virus and/or diagnosis of COVID-19 infection under section 564(b)(1) of the Act, 21 U.S.C. 360bbb-3(b) (1), unless the authorization is terminated or revoked sooner. When diagnostic testing is negative, the possibility of a false negative result should be considered in the context of a patient's recent exposures and the presence of clinical signs and symptoms consistent with COVID-19. An individual without symptoms of COVID-19 and who is not shedding SARS-CoV-2 virus would expect to have a negative (not detected) result in this assay. Performed By: #### C VDPCR #### [facility] [address] [place] [address] Lorie Hall Vital Signs Date Time Vital Sign Value Performing Clinician Faci lity 09-18-2023 12:49-0500 Body height 170.3 cm [facility] 09-18-2023 12:49-0500 Body mass index (BMI) [Ratio] 35.18 kg/m2 Isaak Heard MD [facility] 09-18-2023 12:49-0500 Body temperature 97.7 [degF] Isaak Heard MD Work [facility] 09-18-2023 12:49-0500 Body weight 101.97 kg Isaak Heard MD Work [facility]: [facility] 09-18-2023 12:49-0500 Diastolic blood pressure 71 mm[Hg] Isaak Heard MD [facility] 09-18-2023 12:49-0500 Heart rate 83 /min Isaak Heard MD Work [facility]: [facility] 09-18-2023 12:49-0500 Respiratory rate 18 /min Isaak Heard MD Work Phone: [employer] 09-18-2023 12:49-0500 SaO2% (BldA) [Mass fraction] 99 % Isaak Heard MD Work Phone: [facility] 09-18-2023 12:49-0500 Systolic blood pressure 167 mm[Hg] Isaak Heard MD Work Phone: [facility] 09-03-2023 10:00-0500 Body height 170.2 cm Pfo 2 [facility] 09-03-2023 10:00-0500 Body mass index (BMI) [Ratio] 34.29 kg/m2 Pfo 2 [facility] 09-03-2023 10:00-0500 Body temperature 97.2 [degF] Pfo 2 [facility] 09-03-2023 10:00-0500 Body weight 99.34 kg Pfo 2 [facility] 09-03-2023 10:00-0500 Diastolic blood pressure 98 mm[Hg] Pfo 2 [facility] 09-03-2023 10:00-0500 Heart rate 68 /min Pfo 2 [facility] 09-03-2023 10:00-0500 Respiratory rate 16 /min Pfo 2 [facility] 09-03-2023 10:00-0500 SaO2% (BldA) [Mass fraction] 100 % Pfo 2 [facility] 09-03-2023 10:00-0500 Systolic blood pressure 144 mm[Hg] Pfo 2 [facility] Encounters Encounter Date Encounter Type Care Provider Facility Start: 09-23-2023 Documentation procedure Keyona Garcia Zie[facility] Start: 09-18-2023 End: 09-18-2023 Orders Only Keyona Bahena [facility] Comment on above: 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); Rectal cancer ([facility]); Metastasis to liver ([facility]) Start: 09-18-2023 End: 09-18-2023 Office outpatient visit 25 minutes Isaak Heard MD Work Phone: Ashely Bahena [facility] Comment on above: Rectal cancer ([facility]) (Primary Dx); Primary malignant neoplasm of rectum ([facility]); Liver lesion Start: 09-17-2023 Documentation procedure Rosalia Garcia Ziebach [facility]cology Start: 09-16-2023 End: 09-17-2023 ambulatory ISAAK HEARD [facility] Start: 09-03-2023 End: 09-03-2023 ambulatory Pfo Infusion Chair 2 Ashely Bahena [facility] Comment on above: 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); Rectal cancer ([facility]); CINV (chemotherapy-induced nausea and vomiting); Chemotherapy induced neutropenia (CMS-HCC) Start: 09-02-2023 End: 09-02-2023 ambulatory [facility] Start: 09-02-2023 End: 09-02-2023 ambulatory Pfo Infusion Chair 1 Ashely Bahena [facility] Comment on above: Primary malignant ne oplasm of rectum ([facility]) Start: 08-20-2023 End: 08-20-2023 ambulatory [facility] Start: 08-19-2023 End: 08-19-2023 [facility] Start: 08-08-2023 End: 08-08-2023 ambulatory [facility] Start: 08-06-2023 End: 09-01-2023 ambulatory [facility] Start: 06-19-2023 End: 06-19-2023 Patient encounter procedure [facility] Provider [facility] Comment on above: Cancer, metastatic t o liver (HCC) (Primary Dx) Start: 06-19-2023 Radiation Oncology Note Jean-Claude Cabrera MD Work Phone: Radiation Oncology Comment on above: Simulation Note Start: 06-19-2023 End: 06-19-2023 ambulatory Jean-Claude CABRERA Facility:[facility] Start: 06-11-2023 End: 06-12-2023 [facility]ulatory [facility] Start: 05-27-2023 Telephone encounter Jean-Claude Cabrera MD Work Phone: [facility] Comment on above: Appointment Confirma tion Start: 05-21-2023 End: 05-22-2023 ambulatory Nicky Padilla LPN Radiation Oncology Comment on above: Patient Education Start: 02-12-2023 End: 02-12-2023 ambulatory [facility] Start: 12-04-2021 End: 12-05-2021 ambulatory PROVIDER UNKNOWN Facility:[facility] Start: 01-19-2021 Encounter for genera l adult medical examination without abnormal findings DR GUMARO AG [facility] Start: 01-15-2021 End: 01-16-[address] GUMARO AG Facility:[facility] Start: 01-15-2021 End: 01-16-2021 Encounter for general adult medical examination without abnormal findings DR GUMARO AG Facility:[facility] Start: 07-10-2020 End: 07-11-[address] GUMARO AG Facility:[facility] Procedures Date Procedure Procedure Detail Performing Clinician Start: 09-18-2023 Follow-up visit Follow-up ISAAK HEARD Start: 03-11-2023 Colonoscopy Nicky zepeda [employer] Start: 02-11-2023 Lipid 1996 panel - S shawna or Plasma Nicky Graves [employer] Start: 11-05-2021 History of coronary artery bypass grafting Hx of CABG Pfo 1 Start: 01-15-[address] GUMARO FUCHS Comment on above: Performed By: #### T SH, LIPID, LIVER, PSASC, BMP #### [facility] [address] [place] [address] Lorie Hall Plan of Treatment Date Care Activity Detail Author Start: 02-12-2028 Lipid 1996 panel - S shawna or Plasma Lipid Screening [facility] Start: 03-11-2026 Screening for malign ant neoplasm of colon Colonoscopy [facility] Start: 01-15-2026 Prostate Cancer Scre ening Discussion Prostate Cancer Screening Discussion [facility] Start: 09-18-2024 Adult BMI Screening Adult BMI Screen ing [facility] Start: 09-03-2024 Adult BMI Screening Adult BMI Screen ing [facility] Start: 09-03-2024 Tobacco Screening Tobacco Screening [facility] Start: 08-20-2024 Adult BMI Screening Adult BMI Screen ing [facility] Start: 08-06-2024 Tobacco Screening Tobacco Screening [facility] Start: 03-11-2024 Colonoscopy Colonoscopy [facility] Start: 03-11-2024 Colorectal Cancer Screening Colorectal Cancer Screening [facility] Start: 10-17-2023 End: 10-17-2023 Patient encounter procedure 10/17/2023 11:15 AM EST Office Visit Ashely Bahena [facility] Medical Oncology [address] [place] [phone] Isaak Heard MD [address] [place] [id number] Ashely Bahena [facility] Start: 09-26-2023 End: 09-26-2023 Patient encounter procedure 09/26/2023 1:30 PM EST Appointment [facility] - [facility] Imaging [address] [place] [address] Isaak Heard MD [address] [place] [address] [facility] Start: 09-24-2023 End: 09-24-2023 ambulatory 09/24/2023 11:30 AM EST Infusion Ashely Bahena [facility]cology [address] [place] [phone] Ashely Bahena [facility] Medical Oncology Start: 09-23-2023 End: 09-23-2023 Patient encounter procedure 09/23/2023 1:[address] [facility] - Lab [address] [place] [phone] [facility] - Lab Start: 09-18-2023 End: 09-18-2024 CT Abdomen and Pelvis W contrast IV CT abdomen and pelvis with contrast Imaging Routine Primary malignant neoplasm of rectum (CMS-HCC) Rectal cancer (CMS-HCC) Metastasis to liver (CMS-HCC) Expected: 09/18/2023, Expires: 09/18/2024 [facility] Comment on above: Expected: 09/18/2023 , Expires: 09/18/2024 Start: 09-18-2023 End: 09-18-2024 CT Chest limited W contrast IV CT chest with contrast Imaging Routine Primary malignant neoplasm of rectum (CMS-HCC) Rectal cancer ([facility]) Metastasis to liver ([facility]) Expected: 09/18/2023, Expires: 09/18/2024 [facility] Work Phone: Comment on above: Expected: 09/18/2023 , Expires: 09/18/2024 Start: 09-18-2023 End: 09-18-2023 Patient encounter procedure 09/18/2023 12:45 PM EST Office Visit Ashely Bahena [facility] Oncology [address] [place] [phone] Isaak Heard MD [facility] [address] [place] [address] Ashelyruben Bahena [facility] Start: 09-17-2023 End: 09-17-2023 ambulatory 09/17/2023 10:00 AM EST Infusion Ashelyruben Bahena [facility] Medical Oncology [address] [place] [phone] Ashely L Ziebach [facility] Medical Oncology Start: 09-16-2023 End: 09-16-2023 Patient encounter procedure 09/16/2023 10:00 AM EST Appointment [facility] - Lab [address] [place] [address] [facility] Lab Start: 09-03-2023 End: 09-03-2023 ambulatory 09/03/2023 10:00 AM EST Infusion Ashely L Ziebach [facility] Medical Oncology [address] [place] [phone] Ashely L [facility] Start: 07-23-2023 DTaP,Tdap and Td Vac cines (2 - Td or Tdap) DTaP,Tdap and Td Vaccines (2 - Td or Tdap) [facility] Start: 07-23-2023 Urine microalbumin profile DTaP,Tdap,Td Vaccine (2 - Td or Tdap) [facility] Start: 05-02-2023 Influenza vaccination [facility] Start: 09-01-2022 Depression Assessment Depression Ass essment [facility] Start: 2019 RSV Vaccine (1 - 1-d ose 60+ series) RSV Vaccine (1 - 1-dose 60+ series) [facility] Start: 2014 Prostate Cancer Scre ening Discussion Prostate Cancer Screening Discussion [facility] Start: 2004 Cologuard (FIT-DNA) Cologuard (FIT-D NA) [facility] Start: [address] COLONOGRAPHY [facility] Start: 2004 Diabetes Screening Diabetes Screenin g [facility] Start: 2004 Fecal Occult Blood Fecal Occult Bloo d [facility] Start: 2004 SIGMOIDOSCOPY SIGMOIDOSCOPY [facility] Start: 1978 Administration of varicella zoster vaccine Zoster (Shingles) Vaccine (1 of 2) [facility] Start: 1978 Shingrix Vaccine (1 of 2) Moore grix Vaccine (1 of 2) [facility] Start: 1978 Urine microalbumin profile DTaP,Tdap,Td Vaccine (1 - Tdap) [facility] Start: 1977 Adult BMI Follow Up Plan Adult BMI Follow Up Plan [facility] Start: 1977 Hepatitis C Screening Hepatitis C Reddy morales [facility] Start: 1977 HIV Screening HIV Screening [facility] Start: 1971 Depression Screening Depression Scre ening [facility] Start: 1965 Pneumococcal vaccination Pneum ococcal Vaccine (1 - PCV) [facility] Start: 1964 Covid-19 Vaccine (#1) Covid-19 Vacci ne (#1) [facility] Immunizations Immunization Date Immunization Notes Care Provider Fa gracie 07-23-2013 tetanus toxoid, redu rupinder diphtheria toxoid, and acellular pertussis vaccine, adsorbed Pfo 1 [facility] Payers Date Payer Category Payer Medicare [employer] [place] [place] [id number] 2022-Present [phone] [address] [place] [address] [facility] [id number] 2022 Medicare [id number] 2021 Unknown [id number] 1959 Private Health Insurance [id number] 1959 Private Health Insurance [id number] 1959 Unknown [id number] [id number] 1959 Unknown [id number]. [id number] 1959 Unknown [id number] [id number]. [id number] 1959 Unknown [id number] [id number] 1959 Unknown [id number] [id number] 1959 Unknown [id number] [id number] 1959 Unknown [id number] [id number] [id number] 1959 Unknown [id number] [id number] [id number] 1959 Unknown [id number] [id number] 1959 Unknown [id number] [id number] [facility] ( and others) [id number] Medicare [id number] Social History Date Type Detail Facility Start: 02-18-2023 End: 05-21-2023 Tobacco smoking status NHIS Ex-smoker [facility] End: 08-27-2000 History of tobacco use Current smoker [facility] End: 08-27-2000 History of tobacco use Cigarette Smoker [facility] Start: 09-28-2020 End: 05-21-2023 Cigarettes smoked current (pack per day) - Reported 2.5 [facility] Start: 02-18-2023 End: 05-21-2023 Tobacco use and exposure Smokeless tobacco non-user [facility] Start: 05-21-2023 End: 09-03-2023 Alcohol intake Ex-drinker (finding) [facility] Start: 09-28-2020 End: 05-21-2023 Tobacco use panel [facility] National Score (1-10 0), lower number is lower risk 52 [facility] Start: 1960 Sex Assigned At Not on file C [facility] Start: 11-03-2019 Education 15 [facility] Start: 02-18-2023 Tobacco Comment 2 ppd for 26 yrs [facility] Start: 09-30-2019 Alcohol Comment not in past 20 to 30 yrs [facility] Medical Equipment Procedure Code Equipment Code Equipment Origin al Text Equipment Identifier Dates Port Pp Mri 8fr Chrnflx - Sna - [id number] Start: 12-14-2019 Goals Date Patient Goal Desired Activity /State Personal health goal Comment on above: Formatting of this n ote might be different from the original. Evaluation of progress towards goal: Patients goal is to discharge to home with . Clinical Notes 02-12-2023 to 09-23-2023 Keyona Thurman RN - 09/23/2023 5:02 PM Lisa Thurman RN - 09/18/2023 1:07 PM Navya Heard MD - 09/18/2023 12:45 PM ESTPatient InstructionsRosalia Moore RN - 09/17/2023 9:14 AM EST Note Date & Type Note Facility 09-23-2023 History of Presen t illness Narrative I spoke with him, he is still short of breath and has a productive cough. Treatment cancelled tomorrow. He will call us back after he sees his heart doctor to update and let us know how he is feeling. Dr. Heard updated. ===View-only below this line=== ----- Message ----- From: Isaak Heard MD Sent: 09/23/2023 3:50 PM EST To: Patricia Joy [facility]; Keyona Thurman RN Subject: RE: Sign Chemo Orders The patient can resume treatment only when his shortness of breath has improved and no productive cough. I suspect he has active pneumonia and start him on antibiotics last time. ----- Message ----- From: Patricia Joy [facility] Sent: 09/23/2023 3:23 PM EST To: Isaak Heard MD; Keyona Thurman RN Subject: Sign Chemo Orders Dr. Heard, The Chemo orders (MVASI and Irinotecan) will need to be signed for treatment tomorrow. Thanks, Destiny documented in this encounter [facility] 09-18-2023 History of Presen t illness Narrative Patient is here for follow up with Dr. Heard. Orders received for Ct C/A/P with contrast zeeshan. Hold chemo for now. If responding to chemo, plan to check back with rad/onc (vinay) to see if they can do radiation. F/u in 1 month. Patient given calendar, verbalized understanding of future appointments. documented in this encounter [facility] 09-18-2023 History of Presen t illness Narrative [facility] 09/18/23 Chris Fagan is a 63 y.o. year old male seen today in the oncology clinic. Chief Complaint Patient presents with Follow-up History of Present Illness: Mr. Fagan is a 63 y.o. male with extensive cardiovascular disease status post quadruple bypass 2014, stents placement x2. He complains about intermittent rectal bleeding for about a year. Colonoscopy by Dr. Capps on 05/31/19 revealed polyps in the colon as well as a malignant tumor in the distal rectum, 2 to 3 cm from the anal verge; non-obstructing, non-circumferential; three cm in length. He underwent PET scan recently at [facility], no evidence of distant metastasis. Concurrent chemoradiation with Xeloda 07/2019. Sigmoid rectum and anus, resection 10/2019: Invasive adenocarcinoma, moderately differentiated. Invasive into the muscularis propria. Margins are clear. Six of twenty-eight lymph nodes are positive for metastatic carcinoma FOLFOX 12/2019-08/2020 Partial hepatectomy on 10/17/2021, complete resection. Xeloda/Irinotecan 06/2022- (rising CEA suspicious for recurrent disease). Avastin/irinotecan/Xeloda 07/2023 Interval history: Due to elevated Ca level and newly found liver lesion, patient underwent Diagnostic lap, ablation of pauline seg 7. Patient then had NSTEMI 10/18. The patient was started on Xeloda 4 tablets b.i.d. and irinotecan June 2022 due to rising CEA level over the past several months. Avastin/irinotecan/Xeloda was restarted in July 2023 due to worsening liver lesions. He complains about worsening shortness of breath over the past few weeks. He has shortness of breath during minimal exertion over the past several days. He has been using Tessalon Perle to control his cough. Usually he coughs up yellow sputum. No significant abdominal pain. No significant diarrhea from Xeloda, overall tolerated treatment very well. Past Medical History: Diagnosis Date Angina pectoris (CMS-HCC) l;ast nitro 06/2019 COPD (chronic obstructive pulmonary disease) (CMS-HCC) Coronary artery disease 3 stents placed 2013 MATUTE (dyspnea on exertion) GERD (gastroesophageal reflux disease) Hemorrhoids History of chemotherapy last tx 08/11/2019 History of chemotherapy last tx 08/11/2019 History of radiation therapy Hyperlipidemia Hypertension Liver tumor 10/2021 Myocardial infarction (CMS-HCC) 2013, 2015 Rectal bleeding Rectal cancer (CMS-HCC) 2018 Umbilical hernia Visual impairment glasses Past Surgical History: Procedure Laterality Date BOWEL RESECTION 10/2019 CARDIAC SURGERY 2014 quad bypass COLONOSCOPY N/A 03/11/2023 Performed by Tacho Capps DO at [facility] COLONOSCOPY N/A 11/21/2020 Performed by Art Avilez MD at [facility] COLONOSCOPY N/A 05/31/2019 Performed by Tacho Capps DO at [facility] COLOSTOMY 10/2019 CORONARY ANGIOPLASTY 06/2019 CORONARY ANGIOPLASTY WITH STENT PLACEMENT 07/26/2014 x 2. prior to open heart says stents did not work CORONARY ANGIOPLASTY WITH STENT PLACEMENT 2015 DAVINCI PARTIAL HEPATECTOMY N/A 10/17/2021 Performed by Riky Kay MD at [facility] DAVINCI RESECTION ABDOMINAL PERINEAL/BIOBANK N/A 10/08/2019 Performed by Art Avilez MD at [facility] FLEXIBLE SIGMOIDOSCOPY N/A 08/27/2019 Performed by Art Avilez MD at [facility] HERNIA REPAIR 2010 umbilical INSERTION PORT A CATH Left 12/14/2019 Performed by Tacho Capps DO at [facility] LAPAROSCOPIC ULTRASOUND GUIDED MICROWAVE ABLATION OF LIVER TUMOR N/A 10/17/2021 Performed by Riky Kay MD at [facility] LAPAROSCOPY DIAGNOSTIC/ LIVER ULTRASOUND WITH INTERPRETATION N/A 10/17/2021 Performed by Riky Kay MD at [facility] LOCAL EXCISION LESION SKIN N/A 05/31/2019 Performed by Tacho Capps DO at [facility] Family History Problem Relation Age of Onset Cancer Mother lymphoma Heart disease Father Anesthesia problems Neg Hx Colon cancer Neg Hx Social History Socioeconomic History Marital status: Spouse name: Not on file Number of children: Not on file Years of education: Not on file Highest education level: Associate degree: occupational, technical, or vocational program Occupational History Not on file Tobacco Use Smoking status: Former Packs/day: 2.00 Years: 26.00 Additional pack years: 0.00 Total pack years: 52.00 Types: Cigarettes Quit date: 08/27/2000 Years since quittin.0 Smokeless tobacco: Never Tobacco comments: 2 ppd for 26 yrs Vaping Use Vaping Use: Never used Substance and Sexual Activity Alcohol use: Not Currently Comment: not in past 20 to 30 yrs Drug use: Not Currently Types: Marijuana Comment: last used age 20s Sexual activity: Yes Partners: Female Other Topics Concern Caffeine Use Yes Social History Narrative Not on file Social Determinants of Health Financial Resource Strain: Low Risk (11/03/2019) Overall Financial Resource Strain (CARDIA) Difficulty of Paying Living Expenses: Not very hard Food Insecurity: No Food Insecurity (09/03/2023) Hunger Screening Food Insecurity - Worry: Never True Food Insecurity - Inability: Never True Transportation Needs: No Transportation Needs (11/03/2019) PRAPARE - Transportation Lack of Transportation (Medical): No Lack of Transportation (Non-Medical): No Physical Activity: Inactive (11/03/2019) Exercise Vital Sign Days of Exercise per Week: 0 days Minutes of Exercise per Session: 0 min Stress: No Stress Concern Present (11/03/2019) [employer] - Occupational Stress Questionnaire Feeling of Stress : Not at all Social Connections: Socially Integrated (11/03/2019) Social Connection and Isolation Panel [NHANES] Frequency of Communication with Friends and Family: Twice a week Frequency of Social Gatherings with Friends and Family: Once a week Attends [employer] Services: More than 4 times per year Active Member of Clubs or Organizations: Yes Attends Club or Organization Meetings: More than 4 times per year Marital Status: Interpersonal Safety: Not At Risk (11/03/2019) Humiliation, Afraid, Rape, and Kick questionnaire Fear of Current or Ex-Partner: No Emotionally Abused: No Physically Abused: No Sexually Abused: No Allergies Allergen Reactions Isosorbide Headache - NOT a true allergy Lisinopril Cough Medication List Accurate as of September 18, 2023 1:55 PM. If you have any questions, ask your nurse or doctor. New Medications Ordered This Visit benzonatate 200 mg capsule Quantity: 60 capsule Refills: 0 Dose: 200 mg Signed by: Dr. Isaak Heard MD 200 mg, oral, 3 times daily PRN Commonly known as: TESSALON PERLES Started by: Isaak Heard MD levoFLOXacin 750 mg tablet Quantity: 10 tablet Refills: 0 Dose: 750 mg Signed by: Dr. Isaak Heard MD 750 mg, oral, Daily Commonly known as: LEVAQUIN Started by: Isaak Heard MD Medications Modified This Visit capecitabine 500 mg chemo tablet Quantity: 112 tablet Refills: 11 Dose: 1,000 mg/m2 Signed by: Dr. Isaak Heard MD 1,000 mg/m2 (2,000 mg), oral, 2 times daily, Take for one week and 1 week off Commonly known as: XELODA What changed: how much to take Medications Continued This Visit aspirin 81 mg Refills: 0 Dose: 81 mg atorvastatin 40 mg tablet Refills: 0 Dose: 40 mg Commonly known as: LIPITOR cholecalciferol (vitamin D3) 5,000 units tablet Refills: 0 Dose: 5,000 Units clopidogreL 75 mg tablet Refills: 0 Dose: 75 mg Commonly known as: PLAVIX cyclobenzaprine 10 mg tablet Quantity: 60 tablet Refills: 0 Dose: 10 mg Signed by: Dr. Isaak Heard MD 10 mg, oral, 3 times daily PRN Commonly known as: FLEXERIL diphenhydrAMINE 12.5 mg/5 mL elixir 50 mg, alum-mag hydroxide-simeth 400-400-40 mg/5 mL suspension 20 mL, lidocaine 2 % solution 20 mL Quantity: 250 mL Refills: 1 Dose: 10 mL Signed by: Dr. Isaak Heard MD 10 mL, swish & spit, Every 4 hours PRN fluticasone propionate 50 mcg/actuation nasal spray Refills: 0 Dose: 1 spray Commonly known as: FLONASE losartan 50 mg tablet Refills: 5 Dose: 50 mg Commonly known as: COZAAR magnesium citrate 100 mg capsule Refills: 0 Dose: 100 mg metoprolol tartrate 25 mg tablet Quantity: 60 tablet Refills: 0 Dose: 25 mg Signed by: Sandra Alfredo APRN-[employer]BIEE CONSULTANT 25 mg, oral, 2 times daily Commonly known as: LOPRESSOR nitroglycerin 0.4 MG SL tablet Refills: 0 Dose: 0.4 mg Commonly known as: NITROSTAT OMEGA 3 FISH OIL ORAL Refills: 0 Dose: 1,000 mg ondansetron 8 mg tablet Quantity: 30 tablet Refills: 2 For diagnoses: CINV (chemotherapy-induced nausea and vomiting), Rectal cancer (CMS-HCC), Primary malignant neoplasm of rectum (CMS-HCC), Chemotherapy induced neutropenia (CMS-HCC) Signed by: Dr. Isaak Heard MD Take 1 tablet by mouth twice daily as needed for severe nausea or vomiting. Commonly known as: ZOFRAN oxyCODONE 5 mg immediate release tablet Quantity: 45 tablet Refills: 0 Doctor's comments: 30 Day Supply For diagnoses: Rectal cancer (CMS-HCC) Dose: 5 mg Signed by: Dr. Isaak Heard MD 5 mg, oral, Every 8 hours PRN Commonly known as: ROXICODONE pantoprazole 40 mg EC tablet Refills: 0 Dose: 40 mg Commonly known as: PROTONIX polyethylene glycol 17 gram packet Quantity: 14 packet Refills: 1 Dose: 17 g Signed by: Dr. Isaak Heard MD 17 g, oral, Daily Commonly known as: GLYCOLAX prochlorperazine 10 mg tablet Quantity: 60 tablet Refills: 2 For diagnoses: CINV (chemotherapy-induced nausea and vomiting), Rectal cancer (CMS-HCC), Primary malignant neoplasm of rectum (CMS-HCC), Chemotherapy induced neutropenia (CMS-HCC) Signed by: Dr. Isaak Heard MD TAKE ONE TABLET BY MOUTH EVERY 6 HOURS NEEDED FOR MILD NAUSEA OR VOMITING Commonly known as: COMPAZINE ranolazine 500 mg 12 hr tablet Refills: 0 Dose: 500 mg Commonly known as: RANEXA TRELEGY ELLIPTA 200-62.5-25 mcg blister with device Refills: 0 Dose: 200 puff Generic drug: hodkodxgmpu-zdtjfqwkw-nekiiyav VASCEPA 1 gram capsule Refills: 0 Dose: 1 g Generic drug: icosapent ethyL Review of Symptoms: Review of Systems Constitutional: Positive for fatigue. Cardiovascular: Positive for chest pain. Gastrointestinal: Positive for diarrhea. Negative for blood in stool. Skin: Positive for wound. Neurological: Worsening neuropathy All other systems reviewed and are negative. ECO- Symptomatic; fully ambulatory Physical Exam: General: Well appearing, in no acute distress. Vitals: BP 167/71 Pulse 83 Temp 36.5 C (97.7 F) (Oral) Resp 18 Ht 170.3 cm (5' 7.03 ) Wt 102 kg (224 lb 12.8 oz) SpO2 99% BMI 35.18 kg/m Body mass index is 35.18 kg/m . Eyes: No icterus, no conjuctival erythema ENT: Pharyngeal mucosa was moist without exudate and inflammation or ulcerations. Tongue was midline and appeared normal.Gums were unremarkable. Lymph nodes: No palpable adenopathy Neck: Supple. There were no masses, tenderness. Trachea was midline. Respiratory: Respirations were non-labored. Lungs were clear to auscultation. There was no dullness to percussion. Cardiac: Regular rate and rhythm, S1 and S2 sounds were normal. There were no rubs or gallops. Abdomen: Soft, non-tender, Nondistended. Bowel sounds audible in all four quadrants. There were no palpable masses. Colostomy back in place, stoma appear healthy. He has a hernia around stoma. Perineal incision still has small and shallow opening. No signs of infection. Extremities: There was no clubbing, Cyanosis, edema. Skin: There was no obvious rashes, bruising or ecchymosis. Back exam: No palpable tenderness was appreciated. Neurologic: There was no unilateral weakness. Mood and affect: Normal. Recent Imaging: Mr Abdomen With And Without Contrast Result Date: 06/10/2019 Narrative: MRI ABDOMEN WITHOUT AND WITH IV CONTRAST CLINICAL STATEMENT: Recent diagnosis of low rectal cancer. Initial staging. PREVIOUS STUDIES: No relevant priors available. TECHNIQUE: Multiplanar and multisequence images obtained through the abdomen with and without IV contrast. 16 mL ProHance was utilized intravenously with no reported complication. FINDINGS: The scans through the liver show no lesions. Diffuse hepatic steatosis. The gallbladder is unremarkable. The common bile duct is not dilated. The pancreas is normal in size. The adrenal glands are normal in size. The scans through the kidneys multiple T2 hyper intense lesions largest arising from the inferior pole of the right kidney which measured 2.4 x 2.2 cm, most likely represent renal cyst (Bosniak 1). The stomach and visualized bowel are unremarkable. No adenopathy. No ascites. No abdominal aortic aneurysm. IVC right-sided. Normal variant retroaortic left renal vein. IMPRESSION: * No evidence of metastatic disease in the abdomen. * Multiple bilateral renal cysts (Bosniak 1). * Diffuse hepatic steatosis. Approved by Resident: Julio Salazar MD on 06/10/2019 11:31 AM IYassine MD have personally reviewed the image(s) and agree with and/or edited the report Finalized by Yassine Cotter MD on 06/10/2019 12:59 PM Impression: * No evidence of metastatic disease in the abdomen. * Multiple bilateral renal cysts (Bosniak 1). Approved by Resident: Julio Salazar MD on 06/10/2019 11:31 AM Es Colonoscopy Imaging Result Date: 05/31/2019 Narrative: This order has been auto-finalized for image and report archival. *See procedures tab in Epic or report included with PACS images for full interpretation.* Recent Labs: Recent Results (from the past 336 hour(s)) Urine protein creatinine ratio Collection Time: 09/16/23 9:18 AM Result Value Ref Range Urine creatinine 169.97 mg/dL Protein Urine Random 140 (H) <120 mg/L U/Pro/Photogrammetry Airplane Pilot Ratio Calc 0.08 <0.2 Magnesium Collection Time: 09/16/23 9:18 AM Result Value Ref Range Magnesium 1.8 1.8 - 2.6 mg/dL CEA Collection Time: 09/16/23 9:18 AM Result Value Ref Range CEA 28.6 (H) 0.0 - 3.0 ng/mL Comprehensive metabolic panel Collection Time: 09/16/23 9:18 AM Result Value Ref Range Sodium 141 134 - 146 mmol/L Potassium, Bld 3.4 (L) 3.5 - 5.0 mmol/L Chloride 104 98 - 109 mmol/L CO2 27 22 - 32 mmol/L Anion gap 10 5 - 15 mmol/L BUN 10 5 - 27 mg/dL Creatinine 0.86 0.60 - 1.30 mg/dL Glucose 125 (H) 65 - 99 mg/dL Calcium 9.0 8.5 - 10.5 mg/dL Total Protein 6.3 6.0 - 8.0 g/dL Albumin 3.9 3.2 - 5.3 g/dL Alkaline Phosphatase 124 39 - 130 U/L AST 22 0 - 41 U/L ALT 20 0 - 40 U/L Total bilirubin 0.9 0.3 - 1.2 mg/dL eGFR (CKD-EPI)non-race dependent >90 >59 ml/min/1.73sq.m CBC auto differential Collection Time: 09/16/23 9:18 AM Result Value Ref Range White Blood Cells 2.2 (L) 4.0 - 11.0 X10E9/L RBC count 3.66 (L) 4.10 - 5.70 X10E12/L Hemoglobin 11.8 (L) 13.0 - 17.0 g/dL Hematocrit 35.2 (L) 39 - 49 % MCV 96 80 - 100 fL MCH 32.1 27 - 34 pg MCHC 33.5 32 - 36 g/dL RDW 17.5 (H) 11.5 - 15.0 % Platelets 263 150 - 450 X10E9/L MPV 7.4 7 - 12 fL Seg neutrophil 58.0 % Lymphocyte 24.0 % Monocytes 14.0 % Eosinophil 4.0 % Neutrophils Absolute (M) 1.3 (L) 1.5 - 6.6 X10E9/L Lymphocytes Absolute 0.5 (L) 1.0 - 3.5 X10E9/L Monocytes Absolute 0.3 0 - 0.9 X10E9/L Eosinophils Absolute 0.1 0.0 - 0.4 X10E9/L Polychromasia 2+ (A) NONE^NONE Teardrop 1+ (A) NONE^NONE Diagnosis Problem list: Problem List Items Addressed This Visit Digestive Primary malignant neoplasm of rectum (CMS-HCC) Rectal cancer (CMS-HCC) - Primary Liver lesion Impression: Stage IIIB, T3N2 rectal cancer, KRAS MUTANT Concurrent chemoradiation with Xeloda 07/2019 Residual disease after neoadjuvant treatment Significant cardiovascular disease status post CABG and stents placement Normocytic anemia, unable to tolerate oral iron supplement. Plan: The patient is status post 6 months of FOLFOX treatment 08/2020. CT scan of chest abdomen pelvis October 2020 showed no evidence of disease recurrence. CEA level is up to 4.5 slightly elevated than normal. CEA level went down to 4.5 after the surgery October 2021. Recently the tumor marker is around 3 01/2022. Unfortunately his tumor marker jump up to 18 again 3 months later in May 2022 highly suspicious for disease progression. CT scan of the abdomen October 2021 showed surgical change, no suspicious new lesions. CT scan of the chest October 2021 showed 5 mm suspicious lung nodule, lung nodule remains stable January 2022. His CT scan April 2022 showed stable liver change however there are at least 2 enlarging lung nodules. The patient has not had any systemic treatment since 08/2020, I think is reasonable to start a course of systemic treatment if disease progression is approved. I recommended Xeloda/irinotecan. The patient was started on systemic treatment 06/2022. CEA level is dropping down to 8 (10/2022). During treatment break it up to 32 again 01/2023. PET scan 11/2022 showed no evidence of FDG activity in the liver. Lung nodules are relatively stable. No significant active disease. Guardant REVEAL test positive for residual colon cancer. PET scan 04/2023 showed FDG uptake in 2 liver lesion and 1 small lung lesion. No other obvious distant metastasis. Given enlarging liver lesions, plan to repeat another course of irinotecan treatment with Xeloda. Avastin was added to regimen also. After 3 months of treatment, patient's tumor marker dropped from 100-28. Ct C/A/P with contrast zeeshan. Hold chemo for now due to worsening cough and shortness of breath. A trial of Levaquin 750 mg daily for 10 days. If responding to chemo, plan to check back with rad/onc xenia) to see if they can do radiation. F/u in 1 month. Thank you. Isaak Heard MD Please note that portions of this note were generated using voice recognition M*Modal dictation software. Although every effort was made to ensure the accuracy of this automated can feeder, some errors in can feeder may have occurred. CC: Patient Care Team: Gumaro Ag MD as PCP - General Isaak Heard MD as Referring Physician (Hematology) Tacho Capps DO as Consulting Physician (General Surgery) Art Avilez MD as Surgeon (Colon and Rectal Surgery) Yan Rapp MD as Referring Physician (Internal Medicine) Zee Newberry DO as Referring Physician (Family Medicine) Yan Rapp MD as Referring Physician (Internal Medicine) Riky Kay MD as Consulting Physician (General Surgery) King Lyons DO as Consulting Physician (Radiation Oncology) PCP:GUMARO AG Referring MD: Gumaro Ag MD [facility] Inst[facility] Isaak Heard MD - 09/18/2023 12:[address] C/A/P with contrast zeeshan. Hold chemo for now. If responding to chemo, plan to check back with rad/onc (vinay) to see if they can do radiation. F/u in 1 month. documented in this encounter [employer] 09-17-2023 History of Presen t illness Narrative Images from the original note were not included. Patient updated on recommendations by Mike Allen RN and verbalized understanding. Treatment appointment rescheduled tentatively for next week. Patient to call in next Friday with an update on how he is feeling. MD Rosalia Sears RN Let's hold tx for 1-2 weeks. Resume when he is able to breath better. Previous Messages ----- Message ----- From: Rosalia Moore RN Sent: 09/16/2023 4:29 PM EST To: Isaak Heard MD Called to update patient he was OK for treatment tomorrow and he has a very hoarse voice. States he went to ED while in [place], [place] on 09/09/23 because he wasn't feeling well. He reports he had a cough, SOB, fatigue and dizziness. Negative for covid at that time. They started him on Amoxicillin which he will finish tonight. I encouraged him to take another covid test now to rule that out for sure, but that I needed to update you on this information. He said he still does have a little bit of a cough, SOB and fatigue along with the noted hoarseness. I told him you may hold treatment in light of this information but I will let him know for sure. Please advise. Thank you, Zuly ----- Message ----- From: Isaak Heard MD Sent: 09/16/2023 4:16 PM EST To: Rosalia Moore RN Okay to treat ----- Message ----- From: Rosalia Moore RN Sent: 09/16/2023 4:05 PM EST To: Isaka Heard MD ANC is 1.3 this week. Due for Avastin/irnotecan tomorrow. Wanted to check to see if you wanted him to proceed with treatment as planned. Please advise. Thank you, Zuly documented in this encounter [facility] 09-03-2023 History of Presen t illness Narrative Patient is here for Avastin/Irinotecan as scheduled. Toxicity check completed per flowsheet data. Pre chemo check completed with DARLENE Caruso. PIV initiated in right hand without incident. Brisk blood return verified and line flushes with ease. NS initiated as mainline at KVO rate. Patient pre medicated with Dexamethasone/Aloxi without incident and tolerated well. Avastin infused over 30 minutes without incident and patient tolerated well. IVP atropine and pepcid administered without incident. NS discontinued and D5W initiated as mainline at KVO rate. Irinotecan administered over 90 minutes without incident and patient tolerated well. Upon completion, IV flushed. PIV discontinued and pressure dressing applied. Treatment calendar provided. Patient discharged in stable condition to private vehicle. documented in this encounter [facility] [employer] [facility] 08-08-2023 Note [place] [facility] - [facility] Subjective Chris Fagan is a 63 y.o. year old male patient being seen for 6 mo follow up CAD, hypertension, and hyperlipidemia. Lipid profile was not drawn since last apt in January 2023. Did have echo end of January. Denies chest pain, has mild occasional SOB, and no palpitations. Doing very well. Gets fatigued from chemo. Patient Active Problem List Diagnosis Coronary artery disease Hypertension Hx of CABG Rectal cancer (CMS/HCC) Metastatic colon cancer to liver (CMS/HCC) Hx of myocardial infarction Acute coronary syndrome with high troponin (CMS/HCC) Cardiovascular stress test abnormal Chest pain Chronic ischemic heart disease Chronic obstructive lung disease (CMS/HCC) Chemotherapy induced neutropenia (CMS/HCC) History of hyperlipidemia History of percutaneous coronary intervention Hyperlipidemia Iron deficiency anemia due to chronic blood loss Liver lesion Normocytic anemia Obesity (BMI 30-39.9) Family History Problem Relation Name Age of Onset Diabetes Mother Coronary artery disease Mother Hypertension Mother Diabetes type II Father Hypertension Father Coronary artery disease Father Stroke Father Coronary artery disease Brother Social History Tobacco Use Smoking status: Former Types: Cigarettes Smokeless tobacco: Never Substance Use Topics Alcohol use: Not Currently HPI Chris is seen in follow up on CAD s/p CABG (07/2014) and prior stenting of the circumflex (07/2014) and RCA (12/11/2015, details below). He had a NSTEMI in July of 2014. At that time his cath showed three vessel disease. He underwent RAJANI to the circumflex followed by bypass surgery few days later with MINER to the LAD, radial artery graft to the OM1 and the diagonal branch of the LAD, radial artery graft to the PDA. He had normal ventricular and valvular functions by echocardiogram at that time. At prior visit of 07/17/2016 he reported having occasional chest pain and mild shortness of breath on exertion. The pain happens occasionally, in the left side of the chest, squeezing sensation (like a muscle cramp), lasting about 15-20 minutes. I checked a stress test on 07/23/2016 and this showed no ischemia by myocardial perfusion. I stopped plavix 1.5 years after stenting. He has hypertension on treatment with losartan. Visit of 09/15/2018: Since last visit of 02/16/2018 he has been well with no chest pain. He has no shortness of breath other that with strenuous exertion and this is related to his COPD and is stable. Otherwise he has been feeling healthy. At last visit I switched him back to metoprolol tartrate since the long acting formulation affected his sex drive. Prior CAD history: Due to chest pain he had a treadmill stress test on 11/21/2015. After 8 minutes on the treadmill, he developed ST depressions in V5-6 and II and III. He then had a lexiscan stress test on 11/27/2015 which showed moderate lateral ischemia, with ischemic ECG changes in the inferolateral leads. Cath/PCI 12/11/2015: 1. Severe 3-vessel coronary artery disease. 2. Patent MINER to LAD. 3. Patent sequential radial graft to the diagonal branch #2 and obtuse marginal branch #2. 4. Nearly atretic radial graft to the PDA. 5. 95% complex stenosis in the mid right coronary artery. 6. Successful balloon dilatation and drug-eluting stenting of 95% complex stenosis in the mid right coronary artery, using a Promus Premier 4.0 x 16 mm drug-eluting stent, postdilated to 4.0 mm at high pressures. Visit of 06/15/2019: He is seen in follow up. He was recently diagnosed with rectal cancer. He had a MRI of abdomen. He will be having PET scan tomorrow and start radiation therapy in the next 2 weeks. There will be chemotherapy involved in the treatment as he tells me, with a plan to have surgery in the next 4 months. This was discovered after he developed rectal bleeding. He reports that currently he doesn't have any significant bleeding. He was also recently admitted to [facility] with symptoms of angina (pain in the center of the chest, pressure, difficulty breathing, and sweating) and mildly elevated troponin at the [facility]. His echo and stress test were non-revealing. Since discharge on 06/09/2019 he has not had chest pain. Echocardiogram 06/09/2019: Global left ventricular systolic function is normal (Visually estimated EF 60%). The left ventricle is normal size. Left ventricular wall thickness is normal. No left ventricular hypertrophy. No regional wall motion abnormality. Normal diastolic function. Normal right ventricular systolic function. The right ventricle is normal in size. The left atrium is normal in size. Doppler studies suggest normal right sided pressures. The aortic root is normal in size when corrected for body surface area. Stress test 06/09/2019: No evidence of ischemia. normal myocardial perfusion. No TID. LV systolic function is (more content not included)... [facility] 06-24-2023 Note HNO ID: [id number] Author: Jean-Claude Cabrera MD Service: ? Author Type: Physician Type: Progress Notes Filed: 06/24/2023 2:19 PM Note Text: Radiation Oncology -simulation note PATIENT NAME: Chris Fagan PATIENT REQUESTING PROVIDER: Dr. Isaak Heard. DIAGNOSIS: Rectal cancer with liver and solitary lung metastasis MRI demonstrating multiple enhancing lesions including 5.5 x 5.2 cm posterior right hepatic lobe, lesion along right hepatic lobe near 7 capsular area near prior ablation measuring 1.5 cm also 1.5 cm near gallbladder fossa and subcapsular lesions within the right hepatic lobe measuring 5 to 6 mm. The area of lower right hepatic lobe uptake on PET without any obvious corresponding lesion. In review of CT from simulation today several new lung lesions and increased size of left pulmonary lesions seen. Given these findings do not feel SBRT warranted at this time. Discussed with Dr. Heard. Could consider SBRT for consolidation in the future especially the larger hepatic lesion. Signed by: Jean-Claude Cabrera MD cc: Isaak Heard MD [id number] [facility] [address] [facility] [id number] [facility] 06-24-2023 History of Presen t illness Narrative Radiation Oncology -simulation note PATIENT NAME: Chris Fagan PATIENT REQUESTING PROVIDER: Dr. Isaak Heard. DIAGNOSIS: Rectal cancer with liver and solitary lung metastasis MRI demonstrating multiple enhancing lesions including 5.5 x 5.2 cm posterior right hepatic lobe, lesion along right hepatic lobe near 7 capsular area near prior ablation measuring 1.5 cm also 1.5 cm near gallbladder fossa and subcapsular lesions within the right hepatic lobe measuring 5 to 6 mm. The area of lower right hepatic lobe uptake on PET without any obvious corresponding lesion. In review of CT from simulation today several new lung lesions and increased size of left pulmonary lesions seen. Given these findings do not feel SBRT warranted at this time. Discussed with Dr. Heard. Could consider SBRT for consolidation in the future especially the larger hepatic lesion. Signed by: Jean-Claude Cabrera MD cc: Isaak Heard MD [id number] [address] documented in this encounter [facility] 06-19-2023 Note HNO ID: [id number] Author: Jean-Claude Cabrera MD Service: ? Author Type: Physician Type: Progress Notes Filed: 06/24/2023 12:31 AM Note Text: CHRIS FAGAN [id number] 06/19/2023 [facility] Department of Radiation Oncology SBRT CT Simulation Diagnosis/Disease:Secondary malignant neoplasm of liver and intrahepatic bile ductC78.7 Therapist: Jess Ewing Consent: Yes Area: SBRT LIVER AND LUNG Procedure: A time-out was conducted and recorded by the therapist. Patient simulated at [facility] for SBRT. Position: Thigh Positioner: 0 With Riser 1 Without Riser Foot Plate Position: (A-H): Foot Plate Angle: 0 1 0 2 Lt. Foot Cup Position:Rt. Foot Cup Position: 0 A2 0 A1 0 B2 0B1 0 A2 0 A1 0 B2 0B1 Cup Padding 0 In 0 OutCup Padding 0 In 0 Out 0 Abdominal Cuff: SecureVac Cushion Index to Base @ 1 T-Vac Cushion Rt. Side Adjust 0 Tri-Vac Cushion Lt. side Adjust 0 [id number] Pump 0 [id number] Wingboard: Head Pad (B or F) :FForearm Cups: Index to Base @ (A-F):CLeft Arm: 0L1 0L2 00 045 Vertical Height (A-E):E Right Arm: 0L1 0L2 00 045 Superior to Inferior: 5 Additional Notes: ABC DEVICE WAS USED FOR THE SBRT LIVER AND LUNG, THRESHOLD 1.7, 23 SECONDS Immobilization: In order to achieve accurate and reproducible treatments, the patient is to be immobilized with a custom created full body Vacbag device. 5 ABC LUNG SCANS WERE DONE, THEN PATIENT WAS INJECTED WITH CONTRAST FOR THE 3 LIVER ABC SCANS Contrast: IV 100ML OF OMNI 300 WAS INJECTED VIA THE LEFT AC Patient marked. Planning: PET CT fusion for target delineation and normal tissue avoidance. (change notes to document fusions as requested by the physician) Assessment/Plan: Patient tolerated simulation procedure well. Treatments will be initiated after treatment planning. Electronically Signed AUDELIA CABRERA M.D. 1:50 AM [facility] 06-19-2023 History of Presen t illness Narrative CHRIS FAGAN [id number] 06/19/2023 [facility] Department of Radiation Oncology SBRT CT Simulation Diagnosis/Disease:Secondary malignant neoplasm of liver and intrahepatic bile ductC78.7 Therapist: Jess Ewing Consent: Yes Area: SBRT LIVER AND LUNG Procedure: A time-out was conducted and recorded by the therapist. Patient simulated at CT sim for SBRT. Position: Thigh Positioner: 0 With Riser 1 Without Riser Foot Plate Position: (A-H): Foot Plate Angle: 0 1 0 2 Lt. Foot Cup Position:Rt. Foot Cup Position: 0 A2 0 A1 0 B2 0B1 0 A2 0 A1 0 B2 0B1 Cup Padding 0 In 0 OutCup Padding 0 In 0 Out 0 Abdominal Cuff: SecureVac Cushion Index to Base @ 1 T-Vac Cushion Rt. Side Adjust 0 Tri-Vac Cushion Lt. side Adjust 0 [id number] Pump 0 [id number] Wingboard: Head Pad (B or F) :FForearm Cups: Index to Base @ (A-F):CLeft Arm: 0L1 0L2 00 045 Vertical Height (A-E):E Right Arm: 0L1 0L2 00 045 Superior to Inferior: 5 Additional Notes: ABC DEVICE WAS USED FOR THE SBRT LIVER & LUNG, THRESHOLD 1.7, 23 SECONDS Immobilization: In order to achieve accurate and reproducible treatments, the patient is to be immobilized with a custom created full body Vacbag device. 5 ABC LUNG SCANS WERE DONE, THEN PATIENT WAS INJECTED WITH CONTRAST FOR THE 3 LIVER ABC SCANS Contrast: IV 100ML OF OMNI 300 WAS INJECTED VIA THE LEFT AC Patient marked. Planning: PET CT fusion for target delineation and normal tissue avoidance. (change notes to document fusions as requested by the physician) Assessment/Plan: Patient tolerated simulation procedure well. Treatments will be initiated after treatment planning. Electronically Signed AUDELIA CABRERA M.D. 1:50 AM documented in this encounter [facility] 05-28-2023 Miscellaneous Notes Patient is called and scheduled. Patient is scheduled 06/11 for his MRI, when would you like his SIM scheduled? documented in this encounter [facility] 05-21-2023 Note HNO ID: [id number] Author: Jean-Claude Cabrera MD Service: ? Author Type: Physician Type: Progress Notes Filed: 05/28/2023 2:07 PM Note Text: Radiation Oncology - New Patient/Consult Note PATIENT NAME: Chris Fagan PATIENT REQUESTING PROVIDER: Dr. Isaak Heard. DIAGNOSIS: Rectal cancer with liver and solitary lung metastasis HPI: 63 year old male who presents with above diagnosis, for an opinion regarding the role of radiation therapy in the management of the patient's disease. Final recommendations will be communicated back to the requesting physician by way of the shared medical record, or letter to requesting physician via US mail. Patient with known history of rectal cancer initially diagnosed 2018, with finding of a distal rectal tumor. Staging with PET without evidence of metastasis. He received concurrent chemotherapy and radiation (left Xeloda) completing in July 2019. He underwent resection in October 2019 with finding of residual moderately differentiated adenocarcinoma with muscularis propria invasion, margins clear, involvement of 6 of 28 lymph nodes removed. He subsequently received adjuvant FOLFOX in December through August 2020. He was found to have liver involvement and underwent partial liver resection in October 2021. He did well until he was noted to have a rising CEA in June 2022. He was found to have new liver lesion and underwent ablation of segment 7 lesion and was started on further chemotherapy with irinotecan and Xeloda He underwent PET/CT for restaging in November 2022, which demonstrated nonspecific area within the cecum, no suspicious pelvic or resection bed activity, no suspicious activity within the liver, no activity within 2 solid-appearing lung nodules including left upper lobe and right lower lobe (which measure up to 7 mm). Further imaging in April with PET scan demonstrating uptake within segment 7 of the liver at the focus of previous ablation, previously 2.4 SUV, now measuring 5.2. An additional area in segment 4. Right lower lobe nodule increased in size, also with development of increased metabolic activity. Additional 5 mm nodule left lingula below the threshold for FDG uptake. Left upper lobe nodules without significant change. Patient underwent recent colonoscopy without areas suspicious suspicion including to the cecum. Also of note patient CEA has been rising, most recent value 05/06/2023 was 78.8 (59.8 in March, 34.2 in January, 11.1 in November). Currently on systemic treatment with Xeloda 3 twice daily. Having more difficulty with tolerance. Here today to discuss potential SBRT to the areas of oligometastatic disease putting 1 lung and 2 liver lesions. ALLERGIES Allergen Reactions Lisinopril Other: See Comments Headache Current Outpatient Medications on File Prior to Visit Medication Sig aspirin, enteric coated (ASPIRIN, ENTERIC COATED) 81 mg EC tablet Take 81 mg by mouth. atorvastatin (LIPITOR) 40 mg tablet Take 1 tablet by mouth once daily. BREZTRI AEROSPHERE 160-9-4.8 mcg/actuation HFA aerosol inhaler capecitabine (XELODA) 500 mg tablet cholecalciferol (VITAMIN D3) 50 mcg (2,000 unit) tablet clopidogrel (PLAVIX) 75 mg tablet Take 75 mg by mouth. cyclobenzaprine (FLEXERIL) 10 mg tablet Take 10 mg by mouth. fluticasone (FLONASE) 50 mcg/actuation nasal spray Use 1 [place] in the nose. losartan (COZAAR) 50 mg tablet Take 50 mg by mouth. magnesium citrate 100 mg cap Take 100 mg by mouth. metoprolol tartrate, short acting, (LOPRESSOR) 25 mg tablet Take 1 tablet by mouth twice daily. omega-3 fatty acids 1,000 mg cap Take 1,000 mg by mouth. ondansetron (ZOFRAN) 8 mg tablet Take 1 tablet by mouth twice daily as needed for severe nausea or vomiting. oxyCODONE IR (ROXICODONE) 5 mg immediate release tablet pantoprazole DR (PROTONIX) 40 mg tablet Take 40 mg by mouth. prochlorperazine (COMPAZINE) 10 mg tablet Take 1 tablet by mouth every 6 hours as needed for mild nausea or vomiting. ranolazine ER (RANEXA) 500 mg 12 hr tablet nitroglycerin sublingual (NITROQUICK) 0.[address] 1 tablet as needed by sublingual route as directed. No current facility-administered medications on file prior to visit. Prior radiation therapy, collagen vascular disease, or inflammatory bowel disease: Yes Any implanted or external electric devices? No PAST SURGICAL HISTORY Procedure Laterality Date PAST SURGICAL HISTORY OF resection liver lesion TONSILLECTOMY AND ADENOIDECTOMY FAMILY HISTORY Problem Relation Age of Onset Lymphoma Mother Social History Tobacco Use Smoking status: Former Packs/day: 2.50 Years: 26.00 Additional pack years: 0.00 Total pack years: 65.00 Types: Cigarettes Quit date: 1999 Years since quittin.7 Smokeless tobacco: Never Substance Use Topics Alcohol use: Not Currently Drug use: Not Currently COMPLETE REVIEW OF SYSTEMS: GENERAL: feeling well (more content not included)... [facility] 05-21-2023 Nurse Note Radiation Therapy - Patient Education Note PATIENT NAME: Chris Fagan PATIENT May 21, 2023 [facility] FACILITY/LOCATION: [facility] READINESS TO LEARN Cognitive Ability: Alert and oriented Motivation to learn: Interested Family Support: High - Very involved in pt care Instruction provide to: Patient and Spouse Patient learns best by: Multiple Methods Factors effecting learning: None Physical limitations effecting learning: None LEARNING RESPONSE Diagnosis: Pt scheduled for simulation for radiation therapy to SBRT liver and lung. Education Topic/Teaching Points: Radiation therapy, Side effects, and OTV: Method of instruction: Verbal instruction Patient /Family response: Patient and family verbalized understanding of radiation treatments, side effects, OTV, and transportation. Follow-up plan: Recommend - Recommend continued instruction and follow up as directed. Referral (recommendation): None, Pt denied need for social work, van service, and torpedoman's mate. Was approved? No Signed by: Nicky Padilla LPN documented in this encounter [facility] 05-21-2023 Note Education (RADTSA) CHRIS FAGAN ([id number]) 1960 M Date Time Provider Department 05/21/23 NICYK PADILLA Reason for Visit: Patient Education [91] Visit Notes: >> Nicky Padilla LPN Wed May 21, 2023 3:41 PM Status: Signed Radiation Therapy - Patient Education Note PATIENT NAME: Chris Fagan PATIENT May 21, 2023 [facility] FACILITY/LOCATION: [facility] READINESS TO LEARN Cognitive Ability: Alert and oriented Motivation to learn: Interested Family Support: High - Very involved in pt care Instruction provide to: Patient and Spouse Patient learns best by: Multiple Methods Factors effecting learning: None Physical limitations effecting learning: None LEARNING RESPONSE Diagnosis: Pt scheduled for simulation for radiation therapy to SBRT liver and lung. Education Topic/Teaching Points: Radiation therapy, Side effects, and OTV: Method of instruction: Verbal instruction Patient /Family response: Patient and family verbalized understanding of radiation treatments, side effects, OTV, and transportation. Follow-up plan: Recommend - Recommend continued instruction and follow up as directed. Referral (recommendation): None, Pt denied need for social work, van service, and torpedoman's mate. Was approved? No Signed by: Nicky Padilla LPN During your visit today, we recorded the following information about you: Allergies As of Date: 05/21/2023 Noted Allergy Reaction LISINOPRIL 05/21/2023 14 - Other: See Comments Comments: Headache Date Reviewed: 05/21/2023 Reviewed by: Nicky Padilla LPN - Fully Assessed Prescriptions as of 05/21/2023 - aspirin, enteric coated (ASPIRIN, ENTERIC COATED) 81 mg EC tablet Take 81 mg by mouth. - atorvastatin (LIPITOR) 40 mg tablet Take 1 tablet by mouth once daily. - BREZTRI AEROSPHERE 160-9-4.8 mcg/actuation HFA aerosol inhaler - capecitabine (XELODA) 500 mg tablet - cholecalciferol (VITAMIN D3) 50 mcg (2,000 unit) tablet - clopidogrel (PLAVIX) 75 mg tablet Take 75 mg by mouth. - cyclobenzaprine (FLEXERIL) 10 mg tablet Take 10 mg by mouth. - fluticasone (FLONASE) 50 mcg/actuation nasal spray Use 1 [place] in the nose. - losartan (COZAAR) 50 mg tablet Take 50 mg by mouth. - magnesium citrate 100 mg cap Take 100 mg by mouth. - metoprolol tartrate, short acting, (LOPRESSOR) 25 mg tablet Take 1 tablet by mouth twice daily. - omega-3 fatty acids 1,000 mg cap Take 1,000 mg by mouth. - ondansetron (ZOFRAN) 8 mg tablet Take 1 tablet by mouth twice daily as needed for severe nausea or vomiting. - oxyCODONE IR (ROXICODONE) 5 mg immediate release tablet - pantoprazole DR (PROTONIX) 40 mg tablet Take 40 mg by mouth. - prochlorperazine (COMPAZINE) 10 mg tablet Take 1 tablet by mouth every 6 hours as needed for mild nausea or vomiting. - ranolazine ER (RANEXA) 500 mg 12 hr tablet - nitroglycerin sublingual (NITROQUICK) 0.[address] 1 tablet as needed by sublingual route as directed. - iv contrast (will be provided with radiology test) MRI Liver Inject, intravenously, once for 1 dose. No IV access, insert saline lock prior to the beginning of sedation, infusion, injection of imaging exam. Discontinue saline lock post exam. If Pt. has a central line or IVAD, may access for administration according to line specific nursing protocol. Once exam is complete flush line and de-access according to line specific nursing protocol in the MR contrast administration guidelines link. Encounter Status:Closed by NICKY PADILLA on 05/21/23 [facility] 02-12-2023 Note [place] [facility] Subjective Chris Fagan is a 62 y.o. year old male patient being seen for 6 month follow up. Patient Active Problem List Diagnosis Coronary artery disease Hypertension Hx of CABG Rectal cancer (CMS/HCC) Metastatic colon cancer to liver (CMS/HCC) Hx of myocardial infarction Family History Problem Relation Name Age of Onset Diabetes Mother Coronary artery disease Mother Hypertension Mother Diabetes type II Father Hypertension Father Coronary artery disease Father Stroke Father Coronary artery disease Brother Social History Tobacco Use Smoking status: Former Types: Cigarettes Smokeless tobacco: Never Substance Use Topics Alcohol use: Not Currently HPI Chris is seen in follow up on CAD s/p CABG (07/2014) and prior stenting of the circumflex (07/2014) and RCA (12/11/2015, details below). He had a NSTEMI in July of 2014. At that time his cath showed three vessel disease. He underwent RAJANI to the circumflex followed by bypass surgery few days later with MINER to the LAD, radial artery graft to the OM1 and the diagonal branch of the LAD, radial artery graft to the PDA. He had normal ventricular and valvular functions by echocardiogram at that time. At prior visit of 07/17/2016 he reported having occasional chest pain and mild shortness of breath on exertion. The pain happens occasionally, in the left side of the chest, squeezing sensation (like a muscle cramp), lasting about 15-20 minutes. I checked a stress test on 07/23/2016 and this showed no ischemia by myocardial perfusion. I stopped plavix 1.5 years after stenting. He has hypertension on treatment with losartan. Visit of 09/15/2018: Since last visit of 02/16/2018 he has been well with no chest pain. He has no shortness of breath other that with strenuous exertion and this is related to his COPD and is stable. Otherwise he has been feeling healthy. At last visit I switched him back to metoprolol tartrate since the long acting formulation affected his sex drive. Prior CAD history: Due to chest pain he had a treadmill stress test on 11/21/2015. After 8 minutes on the treadmill, he developed ST depressions in V5-6 and II and III. He then had a lexiscan stress test on 11/27/2015 which showed moderate lateral ischemia, with ischemic ECG changes in the inferolateral leads. Cath/PCI 12/11/2015: 1. Severe 3-vessel coronary artery disease. 2. Patent MINER to LAD. 3. Patent sequential radial graft to the diagonal branch #2 and obtuse marginal branch #2. 4. Nearly atretic radial graft to the PDA. 5. 95% complex stenosis in the mid right coronary artery. 6. Successful balloon dilatation and drug-eluting stenting of 95% complex stenosis in the mid right coronary artery, using a Promus Premier 4.0 x 16 mm drug-eluting stent, postdilated to 4.0 mm at high pressures. Visit of 06/15/2019: He is seen in follow up. He was recently diagnosed with rectal cancer. He had a MRI of abdomen. He will be having PET scan tomorrow and start radiation therapy in the next 2 weeks. There will be chemotherapy involved in the treatment as he tells me, with a plan to have surgery in the next 4 months. This was discovered after he developed rectal bleeding. He reports that currently he doesn't have any significant bleeding. He was also recently admitted to [facility] with symptoms of angina (pain in the center of the chest, pressure, difficulty breathing, and sweating) and mildly elevated troponin at the [facility]. His echo and stress test were non-revealing. Since discharge on 06/09/2019 he has not had chest pain. Echocardiogram 06/09/2019: Global left ventricular systolic function is normal (Visually estimated EF 60%). The left ventricle is normal size. Left ventricular wall thickness is normal. No left ventricular hypertrophy. No regional wall motion abnormality. Normal diastolic function. Normal right ventricular systolic function. The right ventricle is normal in size. The left atrium is normal in size. Doppler studies suggest normal right sided pressures. The aortic root is normal in size when corrected for body surface area. Stress test 06/09/2019: No evidence of ischemia. normal myocardial perfusion. No TID. LV systolic function is normal. EF 65%. No regional wall motion abnormality. No ischemic ECG changes. ECG 06/09/2019: Normal sinus rhythm. Nonspecific T wave abnormality. Update 07/19/2019: He is seen in follow-up. After last visit and due to ongoing symptoms of angina, I proceeded with cardiac catheterization. His cardiac catheterization did not show targets for revascularization. I reduced imdur to 30 mg daily due to his prior headache and he later had to stop it due to continuous headache. We had stopped plavix (started before the cath) and losartan. He continues treatment for rectal cancer. No chest pain since the cardiac cath. Cardiac catheterization (more content not included)... [facility] Evaluation note Diagnosis Cancer, metastatic to liver (HCC)- Primary Secondary malignant neoplasm of [facility] Primary [facility] of rectum (CMS-HCC) [facility] Diagnosis Primary malignant neoplasm of rectum (CMS-HCC)- Primary Rectal cancer (CMS-HCC) Malignant neoplasm of rectum CINV (chemotherapy-induced nausea and vomiting) Chemotherapy induced neutropenia (CMS-HCC) [facility] Diagnosis Primary malignant neoplasm of rectum ([facility]-HCC)- Primary Rectal cancer (CMS-HCC) Malignant neoplasm of rectum Metastasis to liver (CMS-HCC) Secondary malignant neoplasm of liver [facility] Diagnosis Rectal cancer (CMS-HCC)- Primary Malignant neoplasm of rectum Primary malignant neoplasm of rectum (CMS-HCC) Liver lesion Other specified disorders of liver [facility] on filedocumented in this encounter [facility] on filedocumented in this encounter [facility]ed [facility]Not on filedocumented in this encounter [facility] Summary Purpose Family History No Family History Records FoundNo Family History Records FoundNo Family History Records FoundNo Family History Records FoundNo Family History Records Found Advance Directives Latest Code Status on File Code Status Date Activated Date Inactivated Comments Full Code 10/17/2021 5:25 PM 10/22/2021 4:33 PM Code Status History Code Status Date Activated Date Inactivated Comments Full Code 12/21/2019 4:49 PM 12/22/2019 2:41 PM Full Code 10/08/2019 6:48 PM 10/11/2019 6:19 PM Latest Code Status on File Code Status Date Activated Date Inactivated Comments Full Code 10/17/2021 5:25 PM 10/22/2021 4:33 PM Code Status History Code Status Date Activated Date Inactivated Comments Full Code 12/21/2019 4:49 PM 12/22/2019 2:41 PM Full Code 10/08/2019 6:48 PM 10/11/2019 6:19 PM Reason for Referral Specialty Diagnoses / Procedures Referred By Contac t Referred To Contact Radiology Diagnoses Primary malignant neoplasm of rectum (CMS-HCC) Rectal cancer (CMS-HCC) Metastasis to liver (CMS-HCC) Procedures CT abdomen and pelvis with contrast Isaak Heard MD [address] [id number] [place] [address] [address] [address] [address] Phone: [phone] Referral ID Status Reason Start Date Expiration Date V isits Requested Visits Authorized [id number] Pending Review 09/18/2023 09/17/2024 1 1 Specialty Diagnoses / Procedures Referred By Carla t Referred To Contact Radiology Diagnoses Primary malignant neoplasm of rectum (CMS-HCC) Rectal cancer (CMS-HCC) Metastasis to liver (CMS-HCC) Procedures CT chest with contrast Isaak Heard MD [address] [place] [address] [facility] [address] [place] [address] Phone: [phone] Referral ID Status Reason Start Date Expiration Date V isits Requested Visits Authorized [id number] Pending Review 09/18/2023 09/17/2024 1 1 Additional Source Comments (unrecognized sect ion and content) No Status Records FoundNo Status Records FoundNo Status Records FoundNo Status Records FoundNo Status Records Found INFORMATION SOURCE (unrecogn ized section and content) DATE CREATED AUTHOR 01/26/2021 [facility] DATE CREATED AUTHOR AUTHOR'S ORGANIZ ATION 12/23/[address] [facility] DATE CREATED AUTHOR AUTHOR'S ORGANIZ ATION 06/25/2023 [facility] DATE CREATED AUTHOR AUTHOR'S ORGANIZ ATION 08/10/2023 [facility] DATE CREATED AUTHOR AUTHOR'S ORGANIZ ATION 09/21/2023 [facility] Source Comments (unrecognize d section and content) In the event this informatio n is protected by the Federal Confidentiality of Alcohol and Drug Abuse Patient Records regulations: The Federal rules restrict any use of the information to criminally investigate or prosecute any alcohol or drug abuse patient.[facility] Health[facility] the event this information is protected by the Federal Confidentiality of Alcohol and Drug Abuse Patient Records regulations: The Federal rules restrict any use of the information to criminally investigate or prosecute any alcohol or drug abuse patient.[facility] HealthIn the event this information is protected by the Federal Confidentiality of Alcohol and Drug Abuse Patient Records regulations: The Federal rules restrict any use of the information to criminally investigate or prosecute any alcohol or drug abuse patient.[facility] HealthIn the event this information is protected by the Federal Confidentiality of Alcohol and Drug Abuse Patient Records regulations: The Federal rules restrict any use of the information to criminally investigate or prosecute any alcohol or drug abuse patient.[facility] HealthIn the event this information is protected by the Federal Confidentiality of Alcohol and Drug Abuse Patient Records regulations: The Federal rules restrict any use of the information to criminally investigate or prosecute any alcohol or drug abuse patient.[facility] Reason for Visit (unrecogniz ed section and content) Reason Comments Patient Education Reason Comments Appointment Confirmation Reason Onset Date Comments Simulation Request Form 06/19/2023 Reason Comments Labs Only Reason Comments Outpatient Infusion Avastin/ irinotecan Specialty Diagnoses / Procedures Referred By Carla t Referred To Contact Diagnoses Primary malignant neoplasm of rectum (CMS-HCC) Rectal cancer (CMS-HCC) CINV (chemotherapy-induced nausea and vomiting) Chemotherapy induced neutropenia (CMS-HCC) Procedures NC IRINOTECAN INJECTION NC PALONOSETRON HCL NC DEXAMETHASONE SODIUM PHOS NC CHEMOTHER, IV INFUSION, 1 HR NC CHEMOTHER, IV INFUSION, EA ADD HR Isaak Heard MD [address] [facility] [place] [address] [facility] [facility] Onc [address] [place] [id number] Referral ID Status Reason Start Date Expiration Date V isits Requested Visits Authorized [id number] Authorized 09/01/2022 09/09/2023 26 26 Reason Comments Follow-up Care Teams (unrecognized sec tion and content) [employer] Relationship Specialty Start Date End Date Gumaro Ag [address] [place] [address] PCP - General Family Medicine 05/21/23 [employer] Relationship Specialty Start Date End Date Gumaro Ag [address] [place] [address] PCP - General Family Medicine 05/21/23 [employer] Up [employer] Relationship Specialty Start Date End Date Gumaro Ag [address] [place] [address] PCP - General Family Medicine 05/21/23 [employer] Up [employer] Relationship Specialty Start Date End Date Gumaro gA [address] [place] [address] [facility] 05/21/23 [employer] Up [employer] Relationship Specialty Start Date End Date Gumaro Ag [address] [place] [facility] [place] [address] [facility] 05/21/23 [employer] Relationship Specialty Start Date End Date Gumaro Ag MD [address] [facility] [place] [address] PCP - General 08/07/17 [employer] Relationship Specialty Start Date End Date Gumaro Ag MD [address] [place] [facility] [place] [address] PCP - General 08/07/17 [employer] Up [employer] Relationship Specialty Start Date End Date Gumaro Ag MD [address] [place] [facility] [place] [address] PCP - General 08/07/17 [employer] Up [employer] Relationship Specialty Start Date End Date Gumaro Ag MD [address] [place] [facility] [place] [address] PCP - General 08/07/17 [employer] Relationship Specialty Start Date End Date Gumaro Ag MD [address] [place] [facility] [place] [address] PCP - General 08/07/17 [employer] Relationship Specialty Start Date End Date Gumaro Ag MD [address] [facility] [place] [address] PCP - General 08/07/17 FOR RECORDS PERTAINING TO PATIENTS WHO ARE OR HAVE BEEN ENROLLED IN A CHEMICAL DEPENDENCY/SUBSTANCEABUSE PROGRAM, SOME INFORMATION MAY BE OMITTED. This clinical summary was aggregated from multiple sources. Caution should be exercised in using it in the provision of clinical care. This summary normalizes information from multiple sources, and as a consequence, information in this document may materially change the coding, format and clinical context of patient data. In addition, data may be omitted in some cases. CLINICAL DECISIONS SHOULD BE BASED ON THE PRIMARY CLINICAL RECORDS. [facility] [employer] [facility]. provides no warranty or guarantee of the accuracy or completeness of information in this document.
[2023-09-25 16:13] LABS: Hematocrit 38.2 % (42.0-54.0); Hemoglobin 12.2 g/dL (14.0-18.0); Mean Corpuscular HGB Conc 31.9 g/dL (29.9-35.2); Mean Corpuscular Hemoglobin 30.8 pg (25.9-34.0); Mean Corpuscular Volume 96.5 fL (80.0-94.0); Mean Platelet Volume 9.2 fL (9.5-13.5); Platelet Count 289 10^3/uL (150-450); Red Blood Count 3.96 10^6/uL (4.70-6.10); Red Cell Distribution Width 15.5 % (11.0-15.0); White Blood Count 3.1 10^3/uL (4.0-11.0)
[2023-09-25 16:54] LABS: Alanine Aminotransferase 30 U/L (16-63); Albumin Globulin Ratio 0.9; Albumin Level 3.4 g/dL (3.4-5.0); Alkaline Phosphatase 133 U/L (46-116); Anion Gap 8.6; Aspartate Amino Transferase 20 U/L (15-37); BUN Creatinine Ratio 8.8; Bilirubin Total 0.7 mg/dL (0.2-1.0); Calcium 9.1 mg/dL (8.5-10.1); Carbon Dioxide 30.8 mmol/L (21.0-32.0); Chloride 103 mmol/L (98-107); Estimated GFR (African America >60 (>=60); Estimated GFR (Non-African Ame >60 (>=60); Globulin 3.8 g/dL; Glucose 118 mg/dL (74-106); Potassium 3.4 mmol/L (3.5-5.1); Sodium 139 mmol/L (136-145); TSH W/ REFLEX FT4 2.507 uIU/mL (0.358-3.740); Total Protein 7.2 g/dL (6.4-8.2)
[2023-09-25 18:05] LABS: Eosinophils Absolute Manual 0.15 10^3/uL (0.00-0.70); Lymphocytes Absolute Manual 0.68 10^3/uL (1.20-3.80); Monocytes Absolute Manual 0.15 10^3/uL (0.30-0.80)
== END 2023-09-25 15:53 | disposition home or self-care (01) ==
LOC: LAB 15:53
PROVIDERS: PCP Family Medicine; Visit Provider Nurse Practitioner
DX: R06.02 Shortness of breath (principal); R06.09 Other forms of dyspnea
CPT/HCPCS: 36415; 80053; 83735; 83880; 84443; 85007; 85027

== ENCOUNTER 2023-10-02 13:36 | Outpatient (OUT) | payer OTHER, SELFPAY ==
--- OUTSIDE RECORDS SUMMARY | 2023-10-02 13:48 | XMS_ITS | CCD ---
Author Name Unknown Address [address] [place] [address] Organization [facility] Care Team Providers Care Radiator Specialist Name Role Phone KIMBERLI, DR GUMARO Quispe Consulting Unavailable NADERER, DR GUMARO Quispe Attending Unavailable NADERER, DR GUMARO Quispe Admitting Unavailable NADERER, DR GUMARO Quispe Attending Unavailable NADERER, DR GUMARO Quispe Admitting Unavailable NADERER, DR GUMARO Quispe Primary Care Unavailable NADERER, DR GUMARO Quispe Consulting Unavailable UNKNOWN, PROVIDER Admitting Unavailable UNKNOWN, PROVIDER Attending Unavailable GUMARO AG Referring Unavailable NADEREGUMARO Pang Primary Care Unavailable NadereGumaro pang Primary Care Provider Jean-Claude CABRERA Referring Unavailable Jean-Claude CABRERA Attending Unavailable NADGUMARO XIE Primary Care Unavailable Jean-Claude CABRERA Attending Unavailable NADEREGUMARO Pang Primary Care Unavailable NADEREBird, GUMARO Quispe Primary Care Unavailable Jean-Claude CABRERA Attending Unavailable GUMARO AG Primary Care Unavailable MEAGAN HEARD Referring Unavailable Naderer Gumaro MEJIA Primary Care Provider Jean-Claude CABRERA Referring Unavailable SUSANA PALOMINO Attending Unavailable MOUKARBEL, YAN Attending Unavailable MOUKARBYAN PENA Attending Unavailable GUMARO AG Referring Unavailable NADEREGUMARO Pang Primary Care Unavailable NADERERGUMARO Referring Unavailable NADERERGUMARO Primary Care Unavailable NADERERGUMARO Referring Unavailable NADERER, GUMARO Primary Care Unavailable NADERERGUMARO Referring Unavailable NADERER, GUMARO Primary Care Unavailable ORQUIDEA, RHODES N Referring Unavailable NADERER, GUMARO Primary Care Unavailable ORQUIDEA, MEAGAN N Attending Unavailable GUMARO AG Referring Unavailable GINIEREGUMARO Pang Primary Care Unavailable GINIEREGUMARO Pang Referring Unavailable NADERER, GUMARO Primary Care Unavailable ORQUIDEA, RHODES N Attending Unavailable ORQUIDEA, RHODES N Referring Unavailable NADERER, GUMARO Primary Care Unavailable Allergies Allergy Classification Reported Allergen(s) Allergy Type Date of Onset Reaction(s) Facility Amino Acids (1 source) Amino Acids Drug Allergy [facility] Repository (4 sources) Amino Acids; Translations: [LISINOPRIL] Drug Allergy 9 [facility] Repository (11 sources) Lisinopril Drug Allergy 9 Other: See Comments, [facility] (7 sources) Isosorbide; Translations: [[facility]OSORBIDE] [facility] Medications Current Medications Medication Drug Class(es) Dates [...] 0 Active Comment on above: Use 1 [place] in the n ose. icosapent ethyl 1000 [...] 40 mg by mouth. polyethylene glycol 3350 16657 mg powder for oral solution (6 sources) [...] above: Take 1 tablet by cedrick th once daily. 1 ml atropine sulfate 0.4 [...] Active Problems Problem Classification Problem Date Documented Da te Episodic/Chronic Cancer of rectum and anus (20 sources) Primary malignant neoplasm of rectum; Translations: [Malignant neoplasm of rectum] Onset: 06-11-2019 09-02-2023 Chronic Coronary atherosclerosis and other heart disease (20 sources) Acute coronary syndrome; Translations: [Acute ischemic heart disease, unspecified] Onset: 12-21-2019 12-21-2019 Chronic Coronary atherosclerosis and other heart disease (10 sources) History of percutaneous coronary intervention; Translations: [Coronary angioplasty status] Onset: 11-05-2021 11-05-2021 Episodic Deficiency and other anemia (6 sources) Iron deficiency anemia due to blood loss; Translations: [Iron deficiency anemia secondary to blood loss (chronic)] Onset: 11-05-2019 11-05-2019 Chronic Diseases of white blood cells (8 sources) Neutropenia due to and following chemotherapy; Translations: [Agranulocytosis secondary to cancer chemotherapy] Onset: 02-14-2020 02-14-2020 Chronic Disorders of lipid metabolism (4 sources) Hyperlipidemia, unspecified; Translations: [Mixed hyperlipidemia] Onset: 08-08-2023 Chronic Essential hypertension (8 sources) Essential hypertension; Translations: [Essential (primary) hypertension] Onset: 11-05-2021 11-05-2021 Chronic Other liver diseases (7 sources) Lesion of liver; Translations: [Liver disease, unspecified] Onset: 09-13-2021 10-17-2021 Chronic Other lower respiratory disease (2 sources) Shortness of breath; Translations: [Shortness of breath] Onset: 09-25-2023 Episodic Other lower respiratory disease (2 sources) Other forms of dyspnea; Translations: [Other forms of dyspnea] Onset: 09-25-2023 Episodic Other nervous system disorders (6 sources) Peripheral [...] intrahepatic bile duct] 06-24-2023 Chronic Secondary malignancies (3 sources) Secondary malignant neoplasm of liver and intrahepatic bile duct; Translations: [Secondary malignant neoplasm of liver and intrahepatic bile duct] Onset: 06-11-2023 Chronic Unclassified (1 source) Labs Only Onset: 09-02-2023 Unclassified (1 source) Outpatient Infusion Onset: 08-06-2023 Viral infection (1 source) COVID-19; Translations: [COVID-19] Onset: 07-13-2020 Past or Other Problems Problem Classification Problem Date Documented Date Episodic/Chronic Deficiency and other anemia (6 sources) Normocytic anemia; Translations: [Anemia, unspecified] Onset: 11-04-2019 11-04-2019 Episodic E Codes: Adverse effects of medical drugs (1 source) Adverse effect of antineoplastic and immunosuppressive drugs, initial encounter; Translations: [Adverse effect of antineoplastic and immunosuppressive drugs, initial encounter] Onset: 02-14-2020 Episodic Immunizations and screening for infectious disease (3 sources) Contact with and (suspected) exposure to other viral communicable diseases; Translations: [CONTCT EXPS OTH VIRL COMMUNICABL DZ] Onset: 07-10-2020 Episodic Mood disorders (6 sources) Mood disorders Onset: 11-03-2019 11-03-2019 Nausea and vomiting (8 sources) Chemotherapy-induced nausea and vomiting; Translations: [Nausea with vomiting, unspecified] Onset: 01-10-2020 01-10-2020 Episodic Other nutritional; endocrine; and metabolic disorders (6 sources) H/O: raised blood lipids; Translations: [Personal history of other endocrine, nutritional and metabolic disease] Onset: 11-05-2021 11-05-2021 Episodic Results Test Name Value Interpretation Reference Range Facility CT ABDOMEN AND PELVIS W CONT on 09-26-2023 CT ABDOMEN AND PELVIS W CONT CT ABDOMEN AND PELVIS W CONT CLINICAL INFORMATION: Rectal cancer, follow-up, assess treatment response. TECHNIQUE: CT abdomen and pelvis with intravenous contrast. All CT scans at this facility use dose modulation, iterative reconstruction, and/or weight based dosing when appropriate to reduce radiation dose to as low as reasonably achievable. COMPARISON: CT abdomen and pelvis 09/11/2022, PET/CT 04/11/2023. FINDINGS LOWER CHEST: Chest dictated separately. Lung bases clear. Dense coronary artery calcifications. HEPATOBILIARY: Solid subcapsular deposit in segment 7 (series 6 image 14) measures 3.9 x 2.9 cm, previously 4.0 x 2.8 cm. Subcapsular deposit in segment 8 (series 6 image 15) measures 1.5 x 0.8 cm, previously 2.1 x 1.1 cm. No new hepatic lesions identified. Gallbladder unremarkable. No biliary dilation. PANCREAS: Pancreas unremarkable. No pancreatic ductal dilation. SPLEEN: Within normal limits. ADRENAL GLANDS: Within normal limits. KIDNEYS, URETERS, AND BLADDER: Exophytic Bosniak 2F right renal lesion measures 1.2 cm, unchanged. Inferior right simple renal cyst unchanged. No collecting system dilation. Urinary bladder unremarkable. GI TRACT AND PERITONEUM: Status post APR. Small and large bowel are normal in caliber. Left lower quadrant colostomy. Fat-containing parastomal hernia, similar to prior. VASCULATURE: Abdominal aorta is nonaneurysmal. Aortoiliac calcifications are present. Portal, splenic, superior mesenteric veins patent. Retroaortic left renal vein, variant. LYMPH NODES: Not enlarged. REPRODUCTIVE ORGANS: Prostate unremarkable. MSK: Bilateral L5 spondylolysis with grade 1 anterolisthesis L5 on S1, unchanged. Superior endplate deformity T10, unchanged. IMPRESSION: * Stable disease. No significant change in size of hepatic lesions. * Similar left lower quadrant fat-containing parastomal hernia. * Unchanged right Bosniak 2F cyst. Approved by Resident Konstantin Payton DO on 09/26/2023 2:12 PM I, Tacho Aguilar MD have personally reviewed the image(s) and agree with and/or edited the report Finalized by Tacho Aguilar MD on 09/26/2023 3:28 PM Normal [facility] CT CHEST W CONTon 09-26-2023 CT CHEST W CONT CT CHEST W CONT CT CHEST W CONT HISTORY: Metastatic rectal cancer. Surveillance. Restaging. COMPARISON: 09/11/2022. PET/CT dated 04/11/2023 TECHNIQUE: Multidetector axial CT Chest performed with IV contrast. Sagittal and coronal 2-D reconstructed images were also obtained. Automated exposure control was utilized. All CT scans at this facility use dose modulation, iterative reconstruction, and/or weight based dosing when appropriate to reduce radiation dose to as low as reasonably achievable. FINDINGS: The visualized thyroid is unremarkable. No adrenal mass or splenomegaly. Incompletely evaluated hepatic lesion. Refer to concurrently performed CT abdomen pelvis for complete discussion. No acute osseous abnormality. Unchanged superior endplate irregularity of T9 and T10 from April 2023. No cardiomegaly or pericardial effusion. No aneurysms. Heavy coronary artery calcifications. Pulmonary arteries are within normal limits. No pulmonary embolus visualized in large branches. No enlarged mediastinal or hilar lymph nodes. The airways are patent without filling defect. No pneumothorax or pleural effusion. No consolidation. Upper lobe predominant centrilobular emphysema. Pulmonary nodules (refer to saved images): * 1.0 x 0.9 cm nodule in the left upper lobe has increased in size, previously 0.6 x 0.6 cm. However, this appears less solid than prior exam. * 1.1 x 0.8 cm nodule in the left upper lobe has increased in size, previously 0.8 x 0.7 cm. However, there has been increased central cavitation. * 1.4 x 1.1 cm nodule in the right lower lobe has increased in size, previously 0.9 x 0.8 cm. This is still mostly solid, but there is a small central lucency that was not present on prior exam. * 0.7 cm nodule in the lingula is not definitely present on prior exams, although this may be related to slice selection. IMPRESSION: Bilateral pulmonary nodules have increased in size but are less solid than prior exam. Repeat PET/CT could help distinguish disease progression from posttreatment effect. A subcentimeter solid nodule in the lingula appears new from prior exam, although this may be partially related to slice selection. Approved by Resident Jet Manuel MD on 09/26/2023 1:59 PM ITacho MD have personally reviewed the image(s) and agree with and/or edited the report Finalized by Tacho Aguilar MD on 09/26/2023 3:27 PM [facility] 09-25-2023 Telemedicine [id number] Ruben Fagan 1960 M Date Provider Department Center 09/25/2023 SUSANA JARRELL [facility] Family History Problem Relation Age of Onset Diabetes Mother Coronary artery disease Mother Hypertension Mother Diabetes type II Father Hypertension Father Coronary artery disease Father Stroke Father Coronary artery disease Brother Family Status - Relation Status Age at Mother Father Brother Level of Service:14323 [place] PHYS/QHP TELEPHONE EVALUATION 21-30 MIN Normal [facility] CBC AND AUTO DIFFon 09-16-19 Eosinophils (Bld) [#/Vol] 0.1 10*3/uL Normal 0.0-0.4 [facility] Comment on above: Performed By: #### C BCA #### [facility] ([id number]) [address] [place] [address] [place] [address] #### CMP, 10255-1 #### [facility] ([id number]) [address] [place] [address] #### 9-6 #### [facility] ([id number]) [address] [place] [address] Eosinophils/100 WBC (Bld) 4.0 % Normal [facility] Comment on above: Performed By: #### C BCA #### [facility] ([id number]) [address] [place] [address] [place] [address] #### CMP, 79082-1 #### [facility] ([id number]) [address] [place] [address] #### 9-6 #### [facility] ([id number]) [address] [place] [address] Erythrocyte distribution width (RBC) [Ratio] 17.5 % High 11.5-15.0 [facility] Comment on above: Performed By: #### C BCA #### [facility] ([id number]) [address] [place] [address] [place] [address] #### CMP, 06397-1 #### [facility] ([id number]) [address] [place] [address] #### 9-6 #### [facility] ([id number]) [address] [place] [address] Hematocrit (Bld) [Volume fraction] 35.2 % Low 39-49 [facility] Comment on above: Performed By: #### C BCA #### [facility] ([id number]) [address] [place] [address] [place] [address] #### CMP, 62967-7 #### [facility] ([id number]) [address] [place] [address] #### 9-6 #### [facility] ([id number]) [address] [place] [address] Hemoglobin (Bld) [Mass/Vol] 11.8 g/dL Low 13.0-17.0 [facility] Comment on above: Performed By: #### C BCA #### [facility] ([id number]) [address] [place] [address] [place] [address] #### EMMANUEL, 93653-9 #### [facility] ([id number]) [address] [place] [address] #### 9-6 #### [facility] ([id number]) [address] [facility], [address] [place] [address] Lymphocytes (Bld) [#/Vol] 0.5 10*3/uL Low 1.0-3.5 [facility] Comment on above: Performed By: #### C BCA #### [facility] ([id number]) [address] [place] [address] [place] [address] #### CMP, 75935-5 #### [facility] ([id number]) [address] [place] [address] #### 9-6 #### [facility] ([id number]) [address] [place] [address], [address] [place] [address] Lymphocytes/100 WBC (Bld) 24.0 % Normal [facility] Comment on above: Performed By: #### C BCA #### [facility] ([id number]) [address] [place] [address] [place] [address] #### EMMANUEL, 85369-1 #### [facility] ([id number]) [address] [place] [address] #### 9-6 #### [facility] ([id number]) [address] [place] [address] MCH (RBC) [Entitic mass] 32.1 pg Normal 27-34 [facility] Comment on above: Performed By: #### C BCA #### [facility] ([id number]) [address] [place] [address] [place] [address] #### EMMANUEL, 52797-0 #### [facility] ([id number]) [address] [place] [address] #### 6 #### [facility] ([id number]) [address] [place] [address] MCHC (RBC) [Mass/Vol] 33.5 g/dL Normal 32-36 [facility] Comment on above: Performed By: #### C BCA #### [facility] ([id number]) [address] [place] [address] [place] [address] #### EMMANUEL, #### [facility] ([id number]) [address] [place] [address] #### 9-6 #### [facility] ([id number]) [address] [place] [address] MCV (RBC) [Entitic vol] 96 fL Normal 80-100 [facility] Comment on above: Performed By: #### C BCA #### [facility] ([id number]) [address] [place] [address] [place] [address] #### CMP, #### [facility] ([id number]) [address] [place] [address] #### 9-6 #### [facility] ([id number]) [address] [facility] [place] [address] Monocytes (Bld) [#/Vol] 0.3 10*3/uL Normal 0-0.9 [facility] Comment on above: Performed By: #### C BCA #### [facility] ([id number]) [address] [place] [address] [place] [address] #### CMP, 24798-0 #### [facility] ([id number]) [address] [place] [address] #### 9-6 #### [facility] ([id number]) [address] [facility], [address] [place] [address] Monocytes/100 WBC (Bld) 14.0 % Normal [facility] Comment on above: Performed By: #### C BCA #### [facility] ([id number]) [address] [place] [address] [place] [address] #### CMP, 27444-9 #### [facility] ([id number]) [address] [place] [address] #### 2038-6 #### [facility] ([id number]) [facility] [facility], [address] [place] [address] Neutrophils (Bld) [#/Vol] 1.3 10*3/uL Low 1.5-6.6 [facility] Comment on above: Performed By: #### C BCA #### [facility] ([id number]) [address] [place] [address] [place] [address] #### CMP, 56388-4 #### [facility] ([id number]) [address] [place] [address] #### 2038- #### [facility] ([id number]) [address], [address] [place] [address] Platelet mean volume (Bld) [Entitic vol] 7.4 fL Normal 7-12 [facility] Comment on above: Performed By: #### C BCA #### [facility] ([id number]) [facility] [place] [address] #### CMP, 38224-8 #### [facility] ([id number]) [address] [place] [address] #### 9-6 #### [facility] ([id number]) [address] [place] [address] Platelets (Bld) [#/Vol] 263 10*3/uL Normal 150-450 [facility] Comment on above: Performed By: #### C BCA #### [facility] ([id number]) [address] [place] [address] [address] [place] [address] #### CMP, 85704-5 #### [facility] ([id number]) [address] [place] [address] #### 9-6 #### [facility] ([id number]) [address] [place] [address] POLYCHROMASIA 2+ Abnormal NONE [facility] Comment on above: Performed By: #### C BCA #### [facility] ([id number]) [address] [place] [address] [address] [place] [place] [address] #### CMP, 29847-1 #### [facility] ([id number]) [address] [place] [address] #### 9-6 #### [facility] ([id number]) [address] [place] [address] RBC COUNT 3.66 X10E12/L Low 4.10-5.70 [facility] Comment on above: Performed By: #### C BCA #### [facility] ([id number]) [address] [place] [address] [place] [address] #### CMP, 61041-6 #### [facility] ([id number]) [address] [place] [address] #### 2038- #### [facility] ([id number]) [address] [facility], [address] [place] [address] SEG NEUTROPHIL 58.0 % Normal [facility] Comment on above: Performed By: #### C BCA #### [facility] ([id number]) [address] [place] [address] [place] [address] #### EMMANUEL, #### [facility] ([id number]) [address] [place] [address] #### 6 #### [facility] ([id number]) [address] [place] [address], [address] [place] [address] TEARDROP 1+ Abnormal NONE [facility] Comment on above: Performed By: #### C BCA #### [facility] ([id number]) [address] [place] [address] [place] [address] #### CMP, 65735-1 #### [facility] ([id number]) [address] [place] [address] #### 2038-6 #### [facility] ([id number]) [address] [place] [address], [address] [place] [address] WBC (Bld) [#/Vol] 2.2 10*3/uL Low 4.0-11.0 [facility] Comment on above: Performed By: #### C BCA #### [facility] ([id number]) [address] [place] [address] [place] [address] #### CMP, #### [facility] ([id number]) [address] [place] [address] #### 9-6 #### [facility] ([id number]) [address], [address] [place] [address] COMPREHENSIVE METABOLIC PANE Michael 09-16-2023 Albumin [Mass/Vol] 3.9 g/dL Normal 3.2-5.3 [facility] Comment on above: Performed By: #### C BCA #### [facility] ([id number]) [address] [place] [address] #### CMP, 29311-7 #### [facility] ([id number]) [address] [place] [address] #### 9-6 #### [facility] ([id number]) [address], [address] [place] [address] ALP [Catalytic activity/Vol] 124 U/L Normal 39-130 [facility] Comment on above: Performed By: #### C BCA #### [facility] ([id number]) [address] [place] [address] [place] [address] #### CMP, 46879-2 #### [facility] ([id number]) [address] [place] [address] #### 2038-6 #### [facility] ([id number]) [address], [address] [place] [address] ALT [Catalytic activity/Vol] 20 U/L Normal 0-40 [facility] Comment on above: Performed By: #### C BCA #### [facility] ([id number]) [address] [place] [address] #### CMP, 36616-9 #### [facility] ([id number]) [address] [place] [address] #### 2038-6 #### [facility] ([id number]) [address], [address] [place] [address] Anion gap [Moles/Vol] 10 mmol/L Normal 5-15 [facility] Comment on above: Performed By: #### C BCA #### [facility] ([id number]) [address] [place] [address] #### CMP, 93256-4 #### [facility] ([id number]) [address] [place] [address] #### 9-6 #### [facility] ([id number]) [address], [address] [place] [address] AST [Catalytic activity/Vol] 22 U/L Normal 0-41 [facility] Comment on above: Performed By: #### C BCA #### [facility] ([id number]) [address] [place] [address] [place] [address] #### CMP, 22697-0 #### [facility] ([id number]) [address] [place] [address] #### 9-6 #### [facility] ([id number]) [address], [address] [place] [address] Bilirubin [Mass/Vol] 0.9 mg/dL Normal 0.3-1.2 [facility] Comment on above: Performed By: #### C BCA #### [facility] ([id number]) [address] [place] [address] [place] [address] #### CMP, 62292-2 #### [facility] ([id number]) [address] [place] [address] #### 9-6 #### [facility] ([id number]) [address], [address] [place] [address] Calcium [Mass/Vol] 9.0 mg/dL Normal 8.5-10.5 [facility] Comment on above: Performed By: #### C BCA #### [facility] ([id number]) [address] [place] [address] [place] [address] #### CMP, 40229-4 #### [facility] ([id number]) [address] [place] [address] #### 9-6 #### [facility] ([id number]) [address] [place] [address] Chloride [Moles/Vol] 104 mmol/L Normal 98-109 [facility] Comment on above: Performed By: #### C BCA #### [facility] ([id number]) [address] [place] [address] [place] [address] #### CMP, 64604-4 #### [facility] ([id number]) [address] [place] [address] #### 2038-6 #### [facility] ([id number]) [address] [place] [address] CO2 [Moles/Vol] 27 mmol/L Normal 22-32 [facility] Comment on above: Performed By: #### C BCA #### [facility] ([id number]) [address] [place] [address] [place] [address] #### EMMANUEL, 54543-7 #### [facility] ([id number]) [address] [place] [address] #### 9-6 #### [facility] ([id number]) [address] [place] [address] Creatinine [Mass/Vol] 0.86 mg/dL Normal 0.60-1.30 [facility] Comment on above: Result Comment: METH OD TRACEABLE TO IDMS STANDARD Performed By: #### C BCA #### [facility] ([id number]) [address] [place] [address] [place] [address] #### CMP, 34232-7 #### [facility] ([id number]) [address] [place] [address] #### 9-6 #### [facility] ([id number]) [address] [place] [address] eGFR (CKD-EPI) NON-RACE DEPENDENT >90 Normal >59 [facility] Comment on above: Result Comment: Reported eGFR is based on the CKD-EPI 2020 equation that does not use a race coefficient. Performed By: #### C BCA #### [facility] ([id number]) [address] [place] [address] [place] [address] #### EMMANUEL, 05168-6 #### [facility] ([id number]) [address] [place] [address] #### 9-6 #### [facility] ([id number]) [address] [facility] [place] [address] Glucose [Mass/Vol] 125 mg/dL High 65-99 [facility] Comment on above: Performed By: #### C BCA #### [facility] ([id number]) [address] [place] [address] #### EMMANUEL, 55367-1 #### [facility] ([id number]) [address] [place] [address] #### 9-6 #### [facility] ([id number]) [address] [facility] [place] [address] Potassium [Moles/Vol] 3.4 mmol/L Low 3.5-5.0 [facility] Comment on above: Performed By: #### C BCA #### [facility] ([id number]) [address] [place] [address] #### CMP, 86530-1 #### [facility] ([id number]) [address] [place] [address] #### 9-6 #### [facility] ([id number]) [address], [address] [place] [address] Protein [Mass/Vol] 6.3 g/dL Normal 6.0-8.0 [facility] Comment on above: Performed By: #### C BCA #### [facility] ([id number]) [address] [place] [address] #### CMP, 90854-0 #### [facility] ([id number]) [address] [place] [address] #### 9-6 #### [facility] ([id number]) [address] [place] [address] Sodium [Moles/Vol] 141 mmol/L Normal 134-146 [facility] Comment on above: Performed By: #### C BCA #### [facility] ([id number]) [address] [place] [address] [place] [address] #### CMP, 78100-5 #### [facility] ([id number]) [address] [place] [address] #### 2038-6 #### [facility] ([id number]) [address], [address] [place] [address] Urea nitrogen [Mass/Vol] 10 mg/dL Normal 5-27 [facility] Comment on above: Performed By: #### C BCA #### [facility] ([id number]) [address] [place] [address] #### CMP, 23150-0 #### [facility] ([id number]) [address] [place] [address] #### 2038-6 #### [facility] ([id number]) [address], [address] [place] [address] Carcinoembryonic Ag [Mass/Vo l]on 09-16-2023 CEA 28.6 ng/mL High 0.0-3.0 [facility] Comment on above: Result Comment: 0.0-3.0 ng/mL FOR NON SMOKERS 0.0-5.0 ng/mL FOR SMOKERS The method used for this test is [facility] DXI chemiluminescent immunoassay. Values obtained by different assay methods cannot be used interchangeably. Performed By: #### C BCA #### [facility] ([id number]) [address] [place] [address] [place] [address] #### EMMANUEL, 24113-3 #### [facility] ([id number]) [address] [place] [address] #### 2039-6 #### [facility] ([id number]) [address] [place] [address], [address] [place] [address] MAGNESIUMon 09-16-2023 Magnesium [Mass/Vol] 1.8 mg/dL Normal 1.8-2.6 [facility] Comment on above: Performed By: #### C BCA #### [facility] ([id number]) [address] [place] [address] [place] [address] #### EMMANUEL, 89932-3 #### [facility] ([id number]) [address] [place] [address] #### 2039-6 #### [facility] ([id number]) [address] [place] [address], [address] [place] [address] PROTEIN CREAT RATIOon 2023 RANDOM URINE PROTEIN 140 mg/L High <120 [facility] Comment on above: Performed By: #### C BCA #### [facility] ([id number]) [address] [place] [address] [place] [address] #### CMP, 95182-3 #### [facility] ([id number]) [address] [place] [address] #### 2038- #### [facility] ([id number]) [address] [facility], [address] [place] [address] U/PRO/POPULATION HEALTH MANAGER RATIO CALC 0.08 Normal <0.2 [facility] Comment on above: Result Comment: Neph rotic Syndrome is associated with ratios >3.5 Performed By: #### C BCA #### [facility] ([id number]) [address] [place] [address] [place] [address] #### CMP, 98511-8 #### [facility] ([id number]) [address] [place] [address] #### 2038-6 #### [facility] ([id number]) [address] [facility], [address] [place] [address] URINE CREATININE,RDM 169.97 mg/dL Normal [facility] Comment on above: Performed By: #### C BCA #### [facility] ([id number]) [address] [place] [address] [place] [address] #### CMP, 57206-3 #### [facility] ([id number]) [address] [place] [address] #### 2038- #### [facility] ([id number]) [address] [facility], [address] [place] [address] CBC AND AUTO DIFFon 09-02-19 24 Eosinophils (Bld) [#/Vol] 0.1 10*3/uL Normal 0.0-0.4 [facility] Comment on above: Performed By: #### C BCA #### [facility] ([id number]) [address] [place] [address] #### 9-6, CMP, #### [facility] ([id number]) [address] [place] [address] Eosinophils/100 WBC (Bld) 5.0 % Normal [facility] Comment on above: Performed By: #### C BCA #### [facility] ([id number]) [address] [place] [address] #### 2039-6, CMP, 19949-4 #### [facility] ([id number]) [address] [place] [address] Erythrocyte distribution width (RBC) [Ratio] 17.0 % High 11.5-15.0 [facility] Comment on above: Performed By: #### C BCA #### [facility] ([id number]) [address] [place] [address] #### 2039-6, CMP, 17656-2 #### [facility] ([id number]) [address] [place] [address] Hematocrit (Bld) [Volume fraction] 35.5 % Low 39-49 [facility] Comment on above: Performed By: #### C BCA #### [facility] ([id number]) [address] [place] [address] #### 9-6, CMP, #### [facility] ([id number]) [address] [place] [address] Hemoglobin (Bld) [Mass/Vol] 12.4 g/dL Low 13.0-17.0 [facility] Comment on above: Performed By: #### C BCA #### [facility] ([id number]) [address] [place] [address] #### 9-6, CMP, #### [facility] ([id number]) [address] [place] [address] Lymphocytes (Bld) [#/Vol] 0.6 10*3/uL Low 1.0-3.5 [facility] Comment on above: Performed By: #### C BCA #### [facility] ([id number]) [address] [place] [address] #### 9-6, CMP, #### [facility] ([id number]) [address], [address] [place] [address] Lymphocytes/100 WBC (Bld) 24.0 % Normal [facility] Comment on above: Performed By: #### C BCA #### [facility] ([id number]) [address] [place] [address] #### 9-6, CMP, #### [facility] ([id number]) [address] [place] [address] MCH (RBC) [Entitic mass] 32.5 pg Normal 27-34 [facility] Comment on above: Performed By: #### C BCA #### [facility] ([id number]) [address] [place] [address] #### 9-6, CMP, #### [facility] ([id number]) [address] [place] [address] MCHC (RBC) [Mass/Vol] 34.9 g/dL Normal 32-36 [facility] Comment on above: Performed By: #### C BCA #### [facility] ([id number]) [address] [place] [address] #### 9-6, CMP, #### [facility] ([id number]) [address] [place] [address] MCV (RBC) [Entitic vol] 93 fL Normal 80-100 [facility] Comment on above: Performed By: #### C BCA #### [facility] ([id number]) [address] [place] [address] [place] [address] #### 9-6, CMP, 75719-7 #### [facility] ([id number]) [address] [place] [address], [address] [place] [address] Monocytes (Bld) [#/Vol] 0.4 10*3/uL Normal 0-0.9 [facility] Comment on above: Performed By: #### C BCA #### [facility] ([id number]) [address] [place] [address] [place] [address] #### 9-6, CMP, 59792-2 #### [facility] ([id number]) [address] [place] [address], [address] [place] [address] Monocytes/100 WBC (Bld) 17.0 % Normal [facility] Comment on above: Performed By: #### C BCA #### [facility] ([id number]) [address] [place] [address] [place] [address] #### 9-6, CMP, #### [facility] ([id number]) [address] [place] [address], [address] [place] [address] Neutrophils (Bld) [#/Vol] 1.4 10*3/uL Low 1.5-6.6 [facility] Comment on above: Performed By: #### C BCA #### [facility] ([id number]) [address] [place] [address] [place] [address] #### 2038-6, CMP, 90924-0 #### [facility] ([id number]) [address] [place] [address], [address] [place] [address] Platelet mean volume (Bld) [Entitic vol] 6.5 fL Low 7-12 [facility] Comment on above: Performed By: #### C BCA #### [facility] ([id number]) [address] [place] [address] [place] [address] #### 2038-, CMP, 24379-2 #### [facility] ([id number]) [address], [address] [place] [address] Platelets (Bld) [#/Vol] 190 10*3/uL Normal 150-450 [facility] Comment on above: Performed By: #### C BCA #### [facility] ([id number]) [facility] [place] [address] #### 9-6, CMP, 65888-9 #### [facility] ([id number]) [address] [facility] [place] [address] RBC COUNT 3.81 X10E12/L Low 4.10-5.70 [facility] Comment on above: Performed By: #### C BCA #### [facility] ([id number]) [address] [place] [address] [place] [address] #### 9-6, CMP, #### [facility] ([id number]) [address] [facility], [address] [place] [address] SEG NEUTROPHIL 54.0 % Normal [facility] Comment on above: Performed By: #### C BCA #### [facility] ([id number]) [address] [place] [address] [place] [address] #### 9-6, CMP, #### [facility] ([id number]) [address] [place] [address] WBC (Bld) [#/Vol] 2.5 10*3/uL Low 4.0-11.0 [facility] Comment on above: Performed By: #### C BCA #### [facility] ([id number]) [address] [place] [address] [place] [address] #### 9-6, CMP, #### [facility] ([id number]) [address], [address] [place] [address] COMPREHENSIVE METABOLIC PANE Michael 09-02-2023 Albumin [Mass/Vol] 4.3 g/dL Normal 3.2-5.3 [facility] Comment on above: Performed By: #### C BCA #### [facility] ([id number]) [address] [place] [address] #### 9-6, CMP, 02895-3 #### [facility] ([id number]) [address] [place] [address] ALP [Catalytic activity/Vol] 129 U/L Normal 39-130 [facility] Comment on above: Performed By: #### C BCA #### [facility] ([id number]) [address] [place] [address] [place] [address] #### 9-6, CMP, 85623-9 #### [facility] ([id number]) [address] [place] [address] ALT [Catalytic activity/Vol] 32 U/L Normal 0-40 [facility] Comment on above: Performed By: #### C BCA #### [facility] ([id number]) [address] [place] [address] [place] [address] #### 9-6, CMP, #### [facility] ([id number]) [address] [place] [address] Anion gap [Moles/Vol] 8 mmol/L Normal 5-15 [facility] Comment on above: Performed By: #### C BCA #### [facility] ([id number]) [address] [place] [address] [place] [address] #### 9-6, CMP, 66792-1 #### [facility] ([id number]) [address] [place] [address] AST [Catalytic activity/Vol] 26 U/L Normal 0-41 [facility] Comment on above: Performed By: #### C BCA #### [facility] ([id number]) [address] [place] [address] #### 9-6, CMP, 05058-0 #### [facility] ([id number]) [address] [facility] [place] [address] Bilirubin [Mass/Vol] 1.0 mg/dL Normal 0.3-1.2 [facility] Comment on above: Performed By: #### C BCA #### [facility] ([id number]) [address] [place] [address] [place] [address] #### 9-6, CMP, 57586-1 #### [facility] ([id number]) [address] [facility] [place] [address] Calcium [Mass/Vol] 9.1 mg/dL Normal 8.5-10.5 [facility] Comment on above: Performed By: #### C BCA #### [facility] ([id number]) [address] [place] [address] [place] [address] #### 9-6, CMP, 34303-8 #### [facility] ([id number]) [address] [facility], [address] [place] [address] Chloride [Moles/Vol] 104 mmol/L Normal 98-109 [facility] Comment on above: Performed By: #### C BCA #### [facility] ([id number]) [address] [place] [address] [place] [address] #### 9-6, CMP, 63127-9 #### [facility] ([id number]) [address] [facility] [place] [address] CO2 [Moles/Vol] 27 mmol/L Normal 22-32 [facility] Comment on above: Performed By: #### C BCA #### [facility] ([id number]) [address] [place] [address] [place] [address] #### 9-6, CMP, 96946-0 #### [facility] ([id number]) [address] [facility], [address] [place] [address] Creatinine [Mass/Vol] 0.84 mg/dL Normal 0.60-1.30 [facility] Comment on above: Result Comment: METH OD TRACEABLE TO IDMS STANDARD Performed By: #### C BCA #### [facility] ([id number]) [address] [place] [address] [place] [address] #### 9-6, CMP, 00189-1 #### [facility] ([id number]) [address] [place] [address], [address] [place] [address] eGFR (CKD-EPI) NON-RACE DEPENDENT >90 Normal >59 [facility] Comment on above: Result Comment: Reported eGFR is based on the CKD-EPI 2020 equation that does not use a race coefficient. Performed By: #### C BCA #### [facility] ([id number]) [address] [place] [address] [place] [address] #### 9-6, CMP, 40333-8 #### [facility] ([id number]) [address] [place] [address], [address] [place] [address] Glucose [Mass/Vol] 88 mg/dL Normal 65-99 [facility] Comment on above: Performed By: #### C BCA #### [facility] ([id number]) [address] [place] [address] [place] [address] #### 9-6, CMP, 16212-9 #### [facility] ([id number]) [address] [place] [address], [address] [place] [address] Potassium [Moles/Vol] 4.1 mmol/L Normal 3.5-5.0 [facility] Comment on above: Performed By: #### C BCA #### [facility] ([id number]) [address] [place] [address] [place] [address] #### 9-6, CMP, 66208-3 #### [facility] ([id number]) [address] [facility], [address] [place] [address] Protein [Mass/Vol] 6.4 g/dL Normal 6.0-8.0 [facility] Comment on above: Performed By: #### C BCA #### [facility] ([id number]) [address] [place] [address] #### 2039-6, CMP, 56103-8 #### [facility] ([id number]) [facility] [facility], [address] [place] [address] Sodium [Moles/Vol] 139 mmol/L Normal 134-146 [facility] Comment on above: Performed By: #### C BCA #### [facility] ([id number]) [address] [place] [address] [place] [address] #### 2039-6, CMP, 04902-2 #### [facility] ([id number]) [address] [place] [address], [address] [place] [address] Urea nitrogen [Mass/Vol] 11 mg/dL Normal 5-27 [facility] Comment on above: Performed By: #### C BCA #### [facility] ([id number]) [address] [place] [address] [address] [facility] [place] [address] #### 2039-6, CMP, 81963-7 #### [facility] ([id number]) [address] [place] [address], [address] [place] [address] Carcinoembryonic Ag [Mass/Vo l]on 09-02-2023 CEA 34.7 ng/mL High 0.0-3.0 [facility] Comment on above: Result Comment: 0.0-3.0 ng/mL FOR NON SMOKERS 0.0-5.0 ng/mL FOR SMOKERS The method used for this test is [employer] DXI chemiluminescent immunoassay. Values obtained by different assay methods cannot be used interchangeably. Performed By: #### C BCA #### [facility] ([id number]) [address] [place] [address] #### 2039-6, CMP, 11580-3 #### [facility] ([id number]) [address] [place] [address], [address] [place] [address] MAGNESIUMon 09-02-2023 Magnesium [Mass/Vol] 2.2 mg/dL Normal 1.8-2.6 [facility] Comment on above: Performed By: #### C BCA #### [facility] ([id number]) [address] [place] [address] #### 2039-6, CMP, #### [facility] ([id number]) [address] [place] [address], [address] [place] [address] PROTEIN CREAT RATIOon 2023 RANDOM URINE PROTEIN 100 mg/L Normal <120 [facility] Comment on above: Performed By: #### U PCR #### [facility] ([id number]) [address] [place] [address], [facility] [address] [place] [address] U/PRO/POPULATION HEALTH MANAGER RATIO CALC 0.07 Normal <0.2 [facility] Comment on above: Result Comment: Neph rotic Syndrome is associated with ratios >3.5 Performed By: #### U PCR #### [facility] ([id number]) [address] [place] [address], [address] [place] [address] URINE CREATININE,RDM 153.25 mg/dL Normal [facility] Comment on above: Performed By: #### U PCR #### [facility] ([id number]) [address] [place] [address] [address] [place] [address] CBC AND AUTO DIFFon 08-19-20 ABSOLUTE BASOPHIL 0.0 X10E9/L Normal 0.0-0.2 [facility] Comment on above: Performed By: #### C BCA #### [facility] ([id number]) [address] [place] [address] [place] [address] #### CMP, 05136-7 #### [facility] ([id number]) [address] [place] [address] #### 9-6 #### [facility] ([id number]) [address] [facility], [address] [place] [address] ABSOLUTE NEUTROPHIL 1.5 X10E9/L Normal 1.5-6.6 [facility] Comment on above: Performed By: #### C BCA #### [facility] ([id number]) [address] [place] [address] [place] [address] #### EMMANUEL, 38077-5 #### [facility] ([id number]) [address] [place] [address] #### 2039-01 #### [facility] ([id number]) [address] [place] [address], [address] [place] [address] Basophils/100 WBC (Bld) 1.2 % Normal [facility] Comment on above: Performed By: #### C BCA #### [facility] ([id number]) [address] [place] [address] [place] [address] #### EMMANUEL, 86935-4 #### [facility] ([id number]) [address] [place] [address] #### 6 #### [facility] ([id number]) [address] [address], [address] [place] [address] Eosinophils (Bld) [#/Vol] 0.1 10*3/uL Normal 0.0-0.4 [facility] Comment on above: Performed By: #### C BCA #### [facility] ([id number]) [address] [place] [address] [place] [address] #### CMP, #### [facility] ([id number]) [address] [place] [address] #### 9-6 #### [facility] ([id number]) [address], [address] [place] [address] Eosinophils/100 WBC (Bld) 3.8 % Normal [facility] Comment on above: Performed By: #### C BCA #### [facility] ([id number]) [address] [place] [address] #### CMP, 82962-6 #### [facility] ([id number]) [address] [place] [address] #### 9-6 #### [facility] ([id number]) [address], [address] [place] [address] Erythrocyte distribution width (RBC) [Ratio] 16.6 % High 11.5-15.0 [facility] Comment on above: Performed By: #### C BCA #### [facility] ([id number]) [address] [place] [address] [place] [address] #### CMP, 22660-3 #### [facility] ([id number]) [address] [place] [address] #### 2038-6 #### [facility] ([id number]) [address], [address] [place] [address] Hematocrit (Bld) [Volume fraction] 33.8 % Low 39-49 [facility] Comment on above: Performed By: #### C BCA #### [facility] ([id number]) [address] [place] [address] #### CMP, 52333-7 #### [facility] ([id number]) [address] [place] [address] #### 2038-6 #### [facility] ([id number]) [address], [address] [place] [address] Hemoglobin (Bld) [Mass/Vol] 11.6 g/dL Low 13.0-17.0 [facility] Comment on above: Performed By: #### C BCA #### [facility] ([id number]) [address] [place] [address] #### CMP, 84700-0 #### [facility] ([id number]) [address] [place] [address] #### 9-6 #### [facility] ([id number]) [address] [facility] [place] [address] Lymphocytes (Bld) [#/Vol] 0.4 10*3/uL Low 1.0-3.5 [facility] Comment on above: Performed By: #### C BCA #### [facility] ([id number]) [address] [place] [address] [place] [address] #### CMP, 11375-9 #### [facility] ([id number]) [address] [place] [address] #### 9-6 #### [facility] ([id number]) [address] [facility] [place] [address] Lymphocytes/100 WBC (Bld) 16.8 % Normal [facility] Comment on above: Performed By: #### C BCA #### [facility] ([id number]) [address] [place] [address] [place] [address] #### CMP, 27457-3 #### [facility] ([id number]) [address] [place] [address] #### 9-6 #### [facility] ([id number]) [address] [facility], [address] [place] [address] MCH (RBC) [Entitic mass] 32.2 pg Normal 27-34 [facility] Comment on above: Performed By: #### C BCA #### [facility] ([id number]) [address] [place] [address] [place] [address] #### CMP, 75515-9 #### [facility] ([id number]) [address] [place] [address] #### 2038-6 #### [facility] ([id number]) [address], [address] [place] [address] MCHC (RBC) [Mass/Vol] 34.4 g/dL Normal 32-36 [facility] Comment on above: Performed By: #### C BCA #### [facility] ([id number]) [address] [place] [address] [place] [address] #### EMMANUEL, 19810-2 #### [facility] ([id number]) [address] [place] [address] #### 2039-01 #### [facility] ([id number]) [address], [address] [place] [address] MCV (RBC) [Entitic vol] 94 fL Normal 80-100 [facility] Comment on above: Performed By: #### C BCA #### [facility] ([id number]) [address] [place] [address] [place] [address] #### EMMANUEL, #### [facility] ([id number]) [address] [place] [address] #### 2039-01 #### [facility] ([id number]) [address], [address] [place] [address] Monocytes (Bld) [#/Vol] 0.2 10*3/uL Normal 0-0.9 [facility] Comment on above: Performed By: #### C BCA #### [facility] ([id number]) [address] [place] [address] [place] [address] #### CMP, 35614-3 #### [facility] ([id number]) [address] [place] [address] #### 2038-6 #### [facility] ([id number]) [address], [address] [place] [address] Monocytes/100 WBC (Bld) 11.0 % Normal [facility] Comment on above: Performed By: #### C BCA #### [facility] ([id number]) [address] [place] [address] #### CMP, 88744-5 #### [facility] ([id number]) [address] [place] [address] #### 2038-6 #### [facility] ([id number]) [address] [facility] [place] [address] Neutrophils/100 WBC (Bld) 67.2 % Normal [facility] Comment on above: Performed By: #### C BCA #### [facility] ([id number]) [address] [place] [address] [place] [address] #### EMMANUEL, 87044-3 #### [facility] ([id number]) [address] [place] [address] #### 2038-6 #### [facility] ([id number]) [address], [address] [place] [address] Platelet mean volume (Bld) [Entitic vol] 6.9 fL Low 7-12 [facility] Comment on above: Performed By: #### C BCA #### [facility] ([id number]) [address] [place] [address] #### CMP, 75649-6 #### [facility] ([id number]) [address] [place] [address] #### 2039-6 #### [facility] ([id number]) [address], [address] [place] [address] Platelets (Bld) [#/Vol] 139 10*3/uL Low 150-450 [facility] Comment on above: Performed By: #### C BCA #### [facility] ([id number]) [address] [place] [address] [place] [address] #### CMP, 43900-5 #### [facility] ([id number]) [address] [place] [address] #### 9-6 #### [facility] ([id number]) [address] [facility], [address] [place] [address] RBC COUNT 3.61 X10E12/L Low 4.10-5.70 [facility] Comment on above: Performed By: #### C BCA #### [facility] ([id number]) [address] [place] [address] [place] [address] #### EMMANUEL, 04231-5 #### [facility] ([id number]) [address] [place] [address] #### 9-6 #### [facility] ([id number]) [address] [facility] [place] [address] WBC (Bld) [#/Vol] 2.2 10*3/uL Low 4.0-11.0 [facility] Comment on above: Performed By: #### C BCA #### [facility] ([id number]) [address] [place] [address] [place] [address] #### CMP, 08088-7 #### [facility] ([id number]) [address] [place] [address] #### 9-6 #### [facility] ([id number]) [address] [facility], [address] [place] [address] COMPREHENSIVE METABOLIC PANE Michael 08-19-2023 Albumin [Mass/Vol] 3.9 g/dL Normal 3.2-5.3 [facility] Comment on above: Performed By: #### C BCA #### [facility] ([id number]) [address] [place] [address] [place] [address] #### CMP, 23273-7 #### [facility] ([id number]) [address] [place] [address] #### 9-6 #### [facility] ([id number]) [address] [facility] [place] [address] ALP [Catalytic activity/Vol] 107 U/L Normal 39-130 [facility] Comment on above: Performed By: #### C BCA #### [facility] ([id number]) [address] [place] [address] [place] [address] #### CMP, 26153-4 #### [facility] ([id number]) [address] [place] [address] #### 9-6 #### [facility] ([id number]) [address] [facility] [place] [address] ALT [Catalytic activity/Vol] 34 U/L Normal 0-40 [facility] Comment on above: Performed By: #### C BCA #### [facility] ([id number]) [address] [place] [address] [place] [address] #### CMP, 28825-1 #### [facility] ([id number]) [address] [place] [address] #### 9-6 #### [facility] ([id number]) [address] [facility] [place] [address] Anion gap [Moles/Vol] 8 mmol/L Normal 5-15 [facility] Comment on above: Performed By: #### C BCA #### [facility] ([id number]) [address] [place] [address] #### CMP, 67735-7 #### [facility] ([id number]) [address] [place] [address] #### 9-6 #### [facility] ([id number]) [address] [place] [address] AST [Catalytic activity/Vol] 31 U/L Normal 0-41 [facility] Comment on above: Performed By: #### C BCA #### [facility] ([id number]) [address] [place] [address] [place] [address] #### EMMANUEL, 36097-3 #### [facility] ([id number]) [address] [place] [address] 055[address] #### 9-6 #### [facility] ([id number]) [address] [place] [address] Bilirubin [Mass/Vol] 1.8 mg/dL High 0.3-1.2 [facility] Comment on above: Performed By: #### C BCA #### [facility] ([id number]) [address] [place] [address] [place] [address] #### EMMANUEL, 57059-7 #### [facility] ([id number]) [address] [place] [address] #### 9-6 #### [facility] ([id number]) [address] [place] [address] Calcium [Mass/Vol] 8.7 mg/dL Normal 8.5-10.5 [facility] Comment on above: Performed By: #### C BCA #### [facility] ([id number]) [address] [place] [address] #### CMP, 67236-8 #### [facility] ([id number]) [address] [place] [address] #### 9-6 #### [facility] ([id number]) [address] [place] [address] Chloride [Moles/Vol] 104 mmol/L Normal 98-109 [facility] Comment on above: Performed By: #### C BCA #### [facility] ([id number]) [address] [place] [address] [place] [address] #### CMP, 21994-8 #### [facility] ([id number]) [address] [place] [address] #### 9-6 #### [facility] ([id number]) [address], [address] [place] [address] CO2 [Moles/Vol] 24 mmol/L Normal 22-32 [facility] Comment on above: Performed By: #### C BCA #### [facility] ([id number]) [address] [place] [address] [place] [address] #### CMP, 59716-9 #### [facility] ([id number]) [address] [place] [address] 18085 #### 9-6 #### [facility] ([id number]) [address], [address] [place] [address] Creatinine [Mass/Vol] 0.87 mg/dL Normal 0.70-1.20 [facility] Comment on above: Result Comment: METH OD TRACEABLE TO IDMS STANDARD Performed By: #### C BCA #### [facility] ([id number]) [address] [place] [place] [address] [place] [address] #### CMP, 00562-9 #### [facility] ([id number]) [address] [place] [address] #### 9-6 #### [facility] ([id number]) [address], [address] [place] [address] eGFR (CKD-EPI) NON-RACE DEPENDENT >90 Normal >59 [facility] Comment on above: Result Comment: Reported eGFR is based on the CKD-EPI 2020 equation that does not use a race coefficient. Performed By: #### C BCA #### [facility] ([id number]) [address] [place] [address] #### EMMANUEL, 62848-1 #### [facility] ([id number]) [address] [place] [address]687 #### 9-6 #### [facility] ([id number]) [address], [address] [place] [address] Glucose [Mass/Vol] 132 mg/dL High 65-99 [facility] Comment on above: Performed By: #### C BCA #### [facility] ([id number]) [address] [place] [address] #### EMMANUEL, 10301-8 #### [facility] ([id number]) [address] [place] [address]869 #### 9-6 #### [facility] ([id number]) [address], [address] [place] [address] Potassium [Moles/Vol] 3.8 mmol/L Normal 3.5-5.0 [facility] Comment on above: Performed By: #### C BCA #### [facility] ([id number]) [address] [place] [address] #### CMP, 96212-1 #### [facility] ([id number]) [address] [place] [address] 46657 #### 9-6 #### [facility] ([id number]) [address], [address] [place] [address] Protein [Mass/Vol] 6.5 g/dL Normal 6.0-8.0 [facility] Comment on above: Performed By: #### C BCA #### [facility] ([id number]) [address] [place] [address] [place] [address] #### CMP, 16355-6 #### [facility] ([id number]) [address] [place] [address] #### 9-6 #### [facility] ([id number]) [address] [facility] [place] [address] Sodium [Moles/Vol] 136 mmol/L Normal 134-146 [facility] Comment on above: Performed By: #### C BCA #### [facility] ([id number]) [address] [place] [address] [place] [address] #### CMP, 31442-5 #### [facility] ([id number]) [address] [place] [address]30 #### 9-6 #### [facility] ([id number]) [address] [facility] [place] [address] Urea nitrogen [Mass/Vol] 12 mg/dL Normal 5-27 [facility] Comment on above: Performed By: #### C BCA #### [facility] ([id number]) [address] [place] [address] [place] [address] #### CMP, 54852-3 #### [facility] ([id number]) [address] [place] [address] 46074 #### 9-6 #### [facility] ([id number]) [address] [facility] [place] [address] Carcinoembryonic Ag [Mass/Vo l]on 08-19-2023 CEA 35.5 ng/mL High 0.0-3.0 [facility] Comment on above: Result Comment: 0.0-3.0 ng/mL FOR NON SMOKERS 0.0-5.0 ng/mL FOR SMOKERS The method used for this test is Rebekah Ensyn DXI chemiluminescent immunoassay. Values obtained by different assay methods cannot be used interchangeably. Performed By: #### C BCA #### [facility] ([id number]) [address] [place] [address] [place] [address] #### CMP, 51402-8 #### [facility] ([id number]) [address] [place] [address] 18177 #### 2039-6 #### [facility] ([id number]) [address] [address] MAGNESIUMon 08-19-2023 Magnesium [Mass/Vol] 2.2 mg/dL Normal 1.8-2.6 [facility] Comment on above: Performed By: #### C BCA #### [facility] ([id number]) [address] [place] [address] [place] [address] #### CMP, 02435-9 #### [facility] ([id number]) [address] [place] [address] #### 2039-6 #### [facility] ([id number]) [address] [facility], [address] [address] PROTEIN CREAT RATIOon 2022 RANDOM URINE PROTEIN <40 Normal <120 [facility] Comment on above: Performed By: #### U PCR #### [facility] ([id number]) [address] [facility] [address] [place] [address] U/PRO/POPULATION HEALTH MANAGER RATIO CALC NOT CALCULATED Normal <0.2 [facility] Comment on above: Result Comment: Result for Protein/Creatinine Ratio cannot be reliably calculated because urine total protein and or urine creatinine is below the detection limit of the assay. Performed By: #### U PCR #### [facility] ([id number]) [address] [facility], [address] [place] [address] URINE CREATININE,RDM 49.68 mg/dL Normal [facility] Comment on above: Performed By: #### U PCR #### [facility] ([id number]) [address] [facility], [address] [place] [address] Office Visiton 08-08-2023 Follow-up visit [id number] Ruben Fagan Radha 1960 M Date Provider Department Center 08/08/2023 Sergo-YAN MOSCOSO [facility] Family History Problem Relation Age of Onset Diabetes Mother Coronary artery disease Mother Hypertension Mother Diabetes type II Father Hypertension Father Coronary artery disease Father Stroke Father Coronary artery disease Brother Family Status - Relation Status Age at Mother Father Brother Level of Service:80948 [facility] OFFICE/OUTPATIENT ESTABLISHED LOW MDM 20-29 MIN Normal [facility] CNOVon 06-19-2023 CNOV Office Visit (RADTSA ) CHRIS FAGAN ([id number]) 1960 M Date Time Provider Department 06/19/23 11:00 AM JeanC-laude CABRERA During your visit today, we recorded the following information about you: Jean-Claude Cabrera MD 06/24/2023 2:19 PM Signed Radiation Oncology -simulation note PATIENT NAME: Chris Fagan PATIENT REQUESTING PROVIDER: Dr. Meagan Heard. DIAGNOSIS: Rectal cancer with liver and [...] lesion. Signed by: Jean-Claude Cabrera MD cc: Meagan Heard MD [address] [address] [facility] [id number] Allergies As of Date: 06/19/2023 Noted Allergy Reaction LISINOPRIL 05/21/2023 14 - Other: See Comments Comments: Headache Date Reviewed: 05/21/2023 Reviewed by: Nicky Padilla LPN - Fully Assessed Reason for Visit: Simulation Request Form [4194] Primary Visit Diagnosis:Cancer, metastatic to liver (HCC) [C78.7] Order(s):RADIATION TREATMENT PER RADIATION ONCOLOGIST PLAN [8088616] Order #: [id number]: 1 PT ED CANCER [0191259] Order #: [id number]: 1 CONTRAST MEDIA [3887427] Order #: [id number] INSERT IV ([place]) [0520381] Order #: [id number]: 1 IV DISCONTINUE [3944461] Order #: [id number]: 1 Prescriptions as of 06/24/2023 - aspirin, [...] (FLONASE) 50 mcg/actuation nasal spray Use 1 Austin in the nose. - losartan (COZAAR) 50 [...] Status:Closed by Jean-Claude CABRERA on 06/24/23 Normal [facility] MR ABDOMEN W AND WO CONTRAST on [...] correlation is recommended. Electronically signed: Tacho Aguilar. [facility] Comment on above: Order Comment: ORDER IN [facility] Ovidio 05-27-2023 CNPN Telephone (PAO) CHRIS FAGAN ([id number]) 1960 M Date Time Provider Department 05/27/23 Jean-Claude CABRERA During your visit today, we recorded the following information about you: Bandar Gaffney 05/27/2023 10:17 AM Signed Patient is scheduled 06/11 for his MRI, when would you like his SIM scheduled? Bandar Gaffney 05/28/2023 12:24 PM Signed Patient is called and scheduled. Allergies As of Date: 05/27/2023 Noted Allergy Reaction LISINOPRIL 05/21/2023 14 - Other: See Comments Comments: Headache Date Reviewed: 05/21/2023 Reviewed by: Nicky Padilla LPN - Fully Assessed Reason for Visit: Appointment Confirmation [7738] Prescriptions as of 05/29/2023 - aspirin, enteric [...] (FLONASE) 50 mcg/actuation nasal spray Use 1 [place] in the nose. - losartan (COZAAR) 50 [...] Of Date: 05/27/2023 (None) Encounter Status:Closed by BANDAR GA[facility]NEY [facility] (RADTSA ) CHRIS FAGAN ([id number]) 1960 M Date Time Provider Department 05/21/23 2:30 PM Jean-Claude CABRERA During your visit today, we recorded the following information about you: Temperature Pulse Respiration Blood pressure 97.4 degrees 60/minute 16/minute 115/78 Weight 99.8 kg Jean-Claude Cabrera MD 05/28/2023 2:07 PM Signed Radiation Oncology - New Patient/Consult Note PATIENT NAME: Chris Fagan PATIENT REQUESTING PROVIDER: Dr. Meagan Heard. DIAGNOSIS: Rectal cancer with liver and [...] (FLONASE) 50 mcg/actuation nasal spray Use 1 [place] in the nose. losartan (COZAAR) 50 mg [...] Packs/day: 2.50 (more content not included)... Normal [facility] 36on 05-16-2023 36 Lm Normal [facility] 36on 03-23-2023 36 His echo from 02/28/2023 is within normal limits. If he's feeling ok then follow up in 6 months. Normal [facility] Telephoneon 03-23-2023 Telephone [id number] Ruben Fagan 1960 M Date Provider Department Center 03/23/2023 Sergo-YAN MOSCOSO [facility] Family History Problem Relation Age of Onset Diabetes Mother Coronary artery disease Mother Hypertension Mother Diabetes type II Father Hypertension Father Coronary artery disease Father Stroke Father Coronary artery disease Brother Family Status - Relation Status Age at Mother Father Brother Normal [facility] Office Visiton 02-12-2023 Follow-up visit [id number] Ruben Fagan 1960 M Date Provider Department Center 02/12/2023 YAN PABON [facility] Family History Problem Relation Age of Onset Diabetes Mother Coronary artery disease Mother Hypertension Mother Diabetes type II Father Hypertension Father Coronary artery disease Father Stroke Father Coronary artery disease Brother Family Status - Relation Status Age at Mother Father Brother Level of Service:23304 [facility] OFFICE/OUTPATIENT ESTABLISHED MOD MDM 30-39 MIN Normal [facility] CREATININE BLOODon Creatinine [Mass/Vol] 0.89 mg/dL Normal 0.70-1.30 [facility] Comment on above: Order Comment: No: D o not add to previous draw Performed By: #### 2 5656 #### [facility] [address] [place] [address], [facility] GFR/1.73 sq M.predicted among blacks MDRD (S/P/Bld) [Vol rate/Area] mL/min/{1.73_m2} Normal >60 [facility] Comment on above: Order Comment: No: D o not add to previous draw Performed By: #### 2 5656 #### [facility] [address] [place] [address], [place] GFR/1.73 sq M.predicted among non-blacks MDRD (S/P/Bld) [Vol rate/Area] mL/min/{1.73_m2} Normal >60 [facility] Comment on above: Order Comment: No: D o not add to previous draw Performed By: #### 2 5656 #### [facility] [address] [place] [id number], [place] Cardiovascular Lab Reporton 12-05-2021 Cardiovascular Lab Report [facility] Patient Name: Chris Fagan MR #: [id number] Medical Center Physician: Yan Moscoso M.D. Department of Service Date: 12/04/2021 Medicine Birthdate: 1960 Division of Room #: 5AB 466125 Cardiology Adult Cardiovascular Services [facility] [address] [place] [address] Cardiovascular Laboratory Report INDICATION: The patient is [...] signed the consent. He was brought to [employer] in a fasting state. The right groin area was prepped and draped in usual fashion. Micropuncture technique and ultrasound guidance were used for access in the right common femoral artery. Inner cannula angiography was performed, followed by upsizing over an Amplatz Super Stiff wire to a 5-South African x 11 cm sheath. Access was obtained using same technique in the right common femoral vein. A 6-South African x 11 cm sheath was placed. A 6-South African Myles catheter was used for right catheterization with measurement of pressures and calculation of cardiac output using the estimated Carol method. Myles catheter was removed. Bilateral selective coronary angiography was then performed using 5-South African JL4 and JR4 diagnostic catheters. Catheters were removed. The 5-South African JR4 diagnostic catheter was used to selectively engage the radial graft sequential to diagonal #2 and OM2, catheter was removed. A 6-South African RHIANNA catheter was used to selectively engage the left subclavian artery and then selectively engage the left internal mammary artery. Angiography was performed. Catheter was removed. Heparin was administered intravenously and therapeutic ACT confirmed during the rest of the procedure. The femoral arterial sheath was upsized to a 6-South African x 11 cm sheath over the Amplatz Super Stiff wire. A 6-South African XB3.5 guiding catheter was advanced and used [...] anterior descending: This gives rise to a [id number] size 1st diagonal branch, that diagonal branch [...] st (more content not included)... Normal The [facility] CBC AUTO DIFFon 01-15-2021 BASO # 0.0 103/ul Normal 0.0-0.1 [facility] Comment on above: Performed By: #### C BC #### [facility] Laboratory [address] [id number] Lorie Isabel Basophils/100 WBC (Bld) 0.4 % Normal 0.2-2.0 [facility] Comment on above: Performed By: #### C BC #### [facility] [address] [id number] Lorie Isabel EO # 0.2 103/ul Normal 0.0-0.7 [facility] Comment on above: Performed By: #### C BC #### [facility] [address] [place] [address] Loriecoco Verdugoen Eosinophils/100 WBC (Bld) 5.3 % Normal 0.9-7.0 [facility] Comment on above: Performed By: #### C BC #### [facility] [address] [place] [address] Loriecoco Hall Erythrocyte distribution width (RBC) [Ratio] 14.0 % Normal 11.0-15.0 [facility] Comment on above: Performed By: #### C BC #### [facility] [address] [place] [address] Loriecoco Verdugoen Hematocrit (Bld) [Volume fraction] 41.4 % Critically low 42.0-54.0 [facility] Comment on above: Performed By: #### C BC #### [facility] [address] [address] Lorie Isabel Hemoglobin (Bld) [Mass/Vol] 14.0 g/dL Normal 14.0-18.0 [facility] Comment on above: Performed By: #### C BC #### [facility] [address] [place], [place] [address] Lorie Isabel IG # 0.04 10e3/ul Critically high 0.00-0.03 [facility] Comment on above: Performed By: #### C BC #### [facility] [address] [place] [address] Loriecoco Verdugoen IG % 0.9 % Critically high 0.0-0.5 [facility] Comment on above: Performed By: #### C BC #### [facility] [address] [place] [address] Loriecoco Hall LYMPH # 0.8 103/ul Critically low 1.2-3.8 [facility] Comment on above: Performed By: #### C BC #### [facility] [address] [place] [address] Lorie Hall Lymphocytes/100 WBC (Bld) 17.8 % Critically low 20.5-60.0 [facility] Comment on above: Performed By: #### C BC #### [facility] [address] [place] [address] Lorie Hall MANUAL DIFF REQ NO Normal [facility] Comment on above: Performed By: #### C BC #### [facility] [address] [place] [address] Loriecoco Hall MCH (RBC) [Entitic mass] 30.4 pg Normal 25.9-34.0 [facility] Comment on above: Performed By: #### C BC #### [facility] [address] [place] [address] Lorie Hall MCHC (RBC) [Mass/Vol] 33.8 g/dL Normal 29.9-35.2 [facility] Comment on above: Performed By: #### C BC #### [facility] [address] [place] [address] Loriecoco Hall MCV (RBC) [Entitic vol] 90.0 fL Normal 80.0-94.0 [facility] Comment on above: Performed By: #### C BC #### [facility] [address] [place] [address] Loriecoco Verdugoen MONO # 0.5 103/ul Normal 0.3-0.8 [facility] Comment on above: Performed By: #### C BC #### [facility] [address] [place] [address] Loriecoco Hall Monocytes/100 WBC (Bld) 10.9 % Normal 1.7-12.0 [facility] Comment on above: Performed By: #### C BC #### [facility] [address] [id number] Lorie Hall NEUT # 2.9 103/ul Normal 1.4-6.5 [facility] Comment on above: Performed By: #### C BC #### [facility] [address] [id number] Lorie Hall Neutrophils/100 WBC (Bld) 64.7 % Normal 43.0-75.0 [facility] Comment on above: Performed By: #### C BC #### [facility] [address] [id number] Lorie Hall Platelet mean volume (Bld) [Entitic vol] 9.1 fL Critically low 9.5-13.5 [facility] Comment on above: Performed By: #### C BC #### [facility] [address] [place], [place] [address] Lorie Isabel PLT 182 103/ul Normal 150-450 [facility] Comment on above: Performed By: #### C BC #### [facility] [address] [place], [place] [address] Lorie Isabel RBC 4.60 106/ul Critically low 4.70-6.10 [facility] Comment on above: Performed By: #### C BC #### [facility] [address] [place], [place] [address] Loriecoco Verdugoen WBC 4.5 103/ul Normal 4.0-11.0 [facility] Comment on above: Performed By: #### C BC #### [facility] [address] [place] [address] Lorie Hall GLYCOHEMOGLOBIN A1Con 2020 ADA RECOMMENDATION ADA THERAPEUTIC TARGET 6.0 - 7.0 ACTION SUGGESTED > 7.0 Normal [facility] Comment on above: Performed By: #### A 1C #### [facility] [address] [place], [place] [address] Lorie Hall Glucose [Mass/Vol] 97 mg/dL Normal [facility] Comment on above: Performed By: #### A 1C #### [facility] [address] [place], [place] [address] Lorie Isabel HbA1c (Bld) [Mass fraction] 5.0 % Normal <=6.0 [facility] Comment on above: Performed By: #### A 1C #### [facility] [address] [place], [place] [address] Lorie Isabel LIPID PROFILEon 01-15-2021 CHOL-HDL RATIO NORM SEE BELOW Normal [facility] Comment on above: Result Comment: 3.3 - 4.4 LOW RISK 4.4 - 7.1 AVERAGE RISK 7.1 - 11.0 MODERATE RISK >11.0 HIGH RISK Performed By: #### T SH, LIPID, LIVER, PSASC, BMP #### [facility] [address] [address] Lorie Isabel Cholesterol [Mass/Vol] 164 mg/dL Normal <=200 [facility] Comment on above: Performed By: #### T SH, LIPID, LIVER, PSASC, BMP #### [facility] [address] [address] Lorie Isabel Cholesterol in HDL [Mass/Vol] 38 mg/dL Normal [facility] Comment on above: Performed By: #### T SH, LIPID, LIVER, PSASC, BMP #### [facility] [address] [id number] Lorie Isabel Cholesterol in LDL [Mass/Vol] 65.0 mg/dL Normal [facility] Comment on above: Performed By: #### T SH, LIPID, LIVER, PSASC, BMP #### [facility] [address] [id number] Lorie Isabel Cholesterol.total/Cho lesterol in HDL [Mass ratio] 4.3 {ratio} Normal [facility] Comment on above: Performed By: #### T SH, LIPID, LIVER, PSASC, BMP #### [facility] [address] [place], [place] [address] Lorie Isabel HDL NORMAL > or = 60 mg/dl - LO W CARDIOVASCULAR RISK <40 mg/dl - HIGH CARDIOVASCULAR RISK Normal [facility] Comment on above: Performed By: #### T SH, LIPID, LIVER, PSASC, BMP #### [facility] [address] [place], [place] [address] Lorie Isabel LDL CALC NORMAL SEE BELOW Normal [facility] Comment on above: Result Comment: <100 mg/dl OPTIMAL 100 - 129 mg/dl NEAR OR ABOVE OPTIMAL 130 - 159 mg/dl BORDERLINE HIGH 160 - 189 mg/dl HIGH >190 mg/dl VERY HIGH Performed By: #### T SH, LIPID, LIVER, PSASC, BMP #### [facility] [address] [address] Lorie Isabel Triglyceride [Mass/Vol] 305 mg/dL Critically high <=150 [facility] Comment on above: Performed By: #### T SH, LIPID, LIVER, PSASC, BMP #### [facility] [address] [address] Lorie Isabel VLDL CALC 61.0 mg/dL Normal [facility] Comment on above: Performed By: #### T SH, LIPID, LIVER, PSASC, BMP #### [facility] [address] [address] Loriecoco Verdugoen LIVER PROFILEon 01-15-2021 Albumin [Mass/Vol] 3.8 g/dL Normal 3.5-5.0 [facility] Comment on above: Performed By: #### T SH, LIPID, LIVER, PSASC, BMP #### [facility] [address] [id number] Lorie Isabel Albumin/Globulin [Mass ratio] 1.1 {ratio} Normal [facility] Comment on above: Performed By: #### T SH, LIPID, LIVER, PSASC, BMP #### [facility] [address] [address] Lorie Isabel ALP [Catalytic activity/Vol] 128 U/L Critically high 38-126 [facility] Comment on above: Performed By: #### T SH, LIPID, LIVER, PSASC, BMP #### [facility] [address] [id number] Lorie Isabel ALT [Catalytic activity/Vol] 52 U/L Normal 21-72 [facility] Comment on above: Performed By: #### T SH, LIPID, LIVER, PSASC, BMP #### [facility] [address] [id number] Lorie Isabel AST [Catalytic activity/Vol] 29 U/L Normal 17-59 [facility] Comment on above: Performed By: #### T SH, LIPID, LIVER, PSASC, BMP #### [facility] [address] [place], [place] [address] Lorie Isabel BILI, CONJUGATED 0.1 mg/dL Normal 0.0-0.3 [facility] Comment on above: Performed By: #### T SH, LIPID, LIVER, PSASC, BMP #### [facility] [address] [place] [address] Lorie Isabel Bilirubin [Mass/Vol] 0.7 mg/dL Normal 0.2-1.3 [facility] Comment on above: Performed By: #### T SH, LIPID, LIVER, PSASC, BMP #### [facility] [address] [place] [address] Lorie Isabel Globulin (S) [Mass/Vol] 3.6 g/dL Normal [facility] Comment on above: Performed By: #### T SH, LIPID, LIVER, PSASC, BMP #### [facility] [address] [place] [address] Lorie Isabel Protein [Mass/Vol] 7.4 g/dL Normal 6.1-8.2 [facility] Comment on above: Performed By: #### T SH, LIPID, LIVER, PSASC, BMP #### [facility] [address] [place], [place] [address] Lorie Isabel PROF CHEM 8 (BAS METB)on Anion gap [Moles/Vol] 11.6 mmol/L Normal [facility] Comment on above: Performed By: #### T SH, LIPID, LIVER, PSASC, BMP #### [facility] [address] [place] [address] Lorie Isabel Calcium [Mass/Vol] 9.1 mg/dL Normal 8.4-10.2 [facility] Comment on above: Performed By: #### T SH, LIPID, LIVER, PSASC, BMP #### [facility] [address] [address] Lorie Isabel Chloride [Moles/Vol] 104 mmol/L Normal 98-107 [facility] Comment on above: Performed By: #### T SH, LIPID, LIVER, PSASC, BMP #### [facility] [address] [address] Lorie Isabel CO2 [Moles/Vol] 29.5 mmol/L Normal 22.0-30.0 [facility] Comment on above: Performed By: #### T SH, LIPID, LIVER, PSASC, BMP #### [facility] [address] [place] [address] Lorie Isabel Creatinine [Mass/Vol] 0.97 mg/dL Normal 0.66-1.25 [facility] Comment on above: Performed By: #### T SH, LIPID, LIVER, PSASC, BMP #### [facility] [address] [place] [address] Lorie Isabel EGFR-AF PALAUAN >60 Normal >=60 [facility] Comment on above: Performed By: #### T SH, LIPID, LIVER, PSASC, BMP #### [facility] [address] [place] [address] Lorie Isabel EGFR-NON AF PALAUAN >60 Normal >=60 [facility] Comment on above: Performed By: #### T SH, LIPID, LIVER, PSASC, BMP #### [facility] [address] [place] [address] Lorie Isabel Glucose [Mass/Vol] 103 mg/dL Normal 74-106 [facility] Comment on above: Performed By: #### T SH, LIPID, LIVER, PSASC, BMP #### [facility] [address] [place] [address] Lorie Isabel Potassium [Moles/Vol] 4.1 mmol/L Normal 3.4-5.0 [facility] Comment on above: Performed By: #### T SH, LIPID, LIVER, PSASC, BMP #### [facility] [address] [place], [place] [address] Lorie Isabel Sodium [Moles/Vol] 141 mmol/L Normal 137-145 [facility] Comment on above: Performed By: #### T SH, LIPID, LIVER, PSASC, BMP #### [facility] [address] [place] [address] Lorie Isabel Urea nitrogen [Mass/Vol] 11.0 mg/dL Normal 9.0-20.0 [facility] Comment on above: Performed By: #### T SH, LIPID, LIVER, PSASC, BMP #### [facility] [address] [address] Lorie Isabel Urea nitrogen/Creatinine [Mass ratio] 11.3 mg/mg Normal [facility] Comment on above: Performed By: #### T SH, LIPID, LIVER, PSASC, BMP #### [facility] [address] [place] [address] Lorie Isabel TSHon 01-15-2021 TSH 1.618 uIU/mL Normal 0.470-4.680 [facility] Comment on above: Performed By: #### T SH, LIPID, LIVER, PSASC, BMP #### [facility] [address] [place] [address] Lorie Isabel TSH RANGE SEE BELOW Normal [facility] Comment on above: Result Comment: <0.3 4 UIU/ml HYPERTHYROID 0.34-5.60 UIU/ml EUTHYROID >5.60 UIU/ml HYPOTHYROID Performed By: #### T SH, LIPID, LIVER, PSASC, BMP #### [facility] [address] [place] [address] Lorie Isabel VITAMIN D 25 OHon 01-15-2021 VIT D 25-OH 15.2 ng/mL Normal [facility] Comment on above: Performed By: #### V ITAD #### [facility] [address] [place] [address] Lorie Isabel VIT D RANGES SEE BELOW Normal [facility] Comment on above: Result Comment: <20 ng/mL Vit D deficient 20 - <30 ng/mL Vit D insufficient 30 - 100 ng/mL Vit D sufficient >100 ng/mL Potential Toxicity Performed By: #### V ITAD #### [facility] [address] [place], [place] [address] Lorie Hall COVID-19 PCRon 07-12-2020 SARS-CoV-2 (COVID-19) RNA GABRIELA+probe Ql (Unsp spec) Detected Abnormal Not Detected [facility] Comment on above: Result Comment: This nucleic acid amplification test was developed and its performance characteristics determined by [employer]. Nucleic acid amplification tests include PCR and [...] assay. Performed By: #### C VDPCR #### [facility] [address] [place], [place] [address] Lorie Hall Vital Signs Date Time Vital Sign Value Performing Clinician Faci lity 09-18-2023 12:49-0500 Body height 170.3 cm Meagan Heard MD Work Phone: [employer] 09-18-2023 12:49-0500 Body mass index (BMI) [Ratio] 35.18 kg/m2 Meagan Heard MD Work Phone: [employer] 09-18-2023 12:49-0500 Body temperature 97.7 [degF] Meagan Heard MD Work Phone: [employer] 09-18-2023 12:49-0500 Body weight 101.97 kg [facility]-18-[facility]23 12:49-0500 Diastolic blood pressure 71 mm[Hg] [facility] 09-18-2023 12:49-0500 Heart rate 83 /min Meagan Heard MD [facility] 09-18-2023 12:49-0500 Respiratory rate 18 /min Meagan Heard MD Work Phone[facility] 09-18-2023 12:49-0500 SaO2% (BldA) [Mass fraction] 99 % Meagan [facility] 09-18-2023 12:49-0500 Systolic blood pressure 167 mm[Hg] Meagan Heard MD Work Phone: [facility] [employer] [facility] 09-03-2023 10:00-0500 Body height 170.2 cm Pfo 2 [facility] 09-03-2023 10:00-0500 Body mass index (BMI) [Ratio] 34.29 kg/m2 Pfo 2 [facility] [employer] [facility] 09-03-2023 10:00-0500 Body temperature 97.2 [degF] Pfo 2 [facility] 09-03-2023 10:00-0500 Body weight 99.34 kg Pfo 2 [facility] 09-03-2023 10:00-0500 Diastolic blood pressure 98 mm[Hg] Pfo 2 [facility] 09-03-2023 10:00-0500 Heart rate 68 /min Pfo 2 [facility] 09-03-2023 10:00-0500 Respiratory rate 16 /min Pfo 2 [facility] 09-03-2023 10:00-0500 SaO2% (BldA) [Mass fraction] 100 % Pfo 2 [facility] 09-03-2023 10:00-0500 Systolic blood pressure 144 mm[Hg] Pfo 2 [facility] Encounters Encounter Date Encounter Type Care Provider Facility Start: 09-26-2023 End: 09-27-2023 ambulatory [facility] Start: 09-25-2023 End: 09-25-2023 ambulatory [facility] Start: 09-23-2023 Documentation procedure Keyona Bahena [facility] Start: 09-18-2023 End: 09-18-2023 [facility] Comment on above: 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); Rectal cancer (CMS-HCC); Metastasis to liver ([facility]-HCC) Start: 09-18-2023 End: 09-18-2023 Office outpatient visit 25 minutes Meagan Heard MD Work Phone: Ashely Bahena [facility] Comment on above: Rectal cancer ([facility]-H CC) (Primary Dx); Primary malignant neoplasm of rectum ([facility]-HCC); Liver lesion Start: 09-17-2023 Documentation procedure Rosalia Bahena [facility] Start: 09-16-2023 End: 09-17-2023 ambulatory [facility] Start: 09-03-2023 End: 09-03-2023 ambulatory Pfo Infusion Chair 2 Ashely Bahena [facility] Comment on above: 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); Rectal cancer ([facility]-HCC); CINV (chemotherapy-induced nausea and vomiting); Chemotherapy induced neutropenia ([facility]-HCC) Start: 09-02-2023 End: 09-02-2023 ambulatory [facility] Start: 09-02-2023 End: 09-02-2023 ambulatory Pfo Infusion Chair 1 Ashely Bahena [facility] Comment on above: Primary malignant ne oplasm of rectum (CMS-HCC) Start: 08-20-2023 End: 08-20-2023 ambulatory [facility] Start: 08-19-2023 End: 08-19-2023 ambulatory [facility] Start: 08-08-2023 End: 08-08-2023 ambulatory [facility] Start: 08-06-2023 End: 09-01-2023 ambulatory GUMARO AG [facility] Start: 06-19-2023 End: 06-19-2023 Patient encounter procedure [facility] Provider [facility] Comment on above: Cancer, metastatic t o liver (HCC) (Primary Dx) Start: 06-19-2023 Radiation Oncology Note G Saul Cabrera MD Work Phone: Radiation Oncology Comment on above: Simulation Note Start: 06-19-2023 End: 06-19-2023 ambulatory Jean-Claude CABRERA Facility:[facility] Start: 06-11-2023 End: 06-12-2023 ambulatory Jean-Claude CABRERA [facility] Start: 05-27-2023 Telephone encounter Jean-Claude Cabrera MD Work Phone: [facility] Comment on above: Appointment Confirma tion Start: 05-21-2023 End: 05-22-2023 ambulatory Nicky Padilla LPN Radiation Oncology Comment on above: Patient Education Start: 02-12-2023 End: 02-12-2023 ambulatory [facility] Start: 12-04-2021 End: 12-05-2021 ambulatory PROVIDER UNKNOWN Facility:[facility] Start: 01-19-2021 Encounter for genera l adult medical examination without abnormal findings DR GUMARO AG [facility] Start: 01-15-2021 End: 01-16-[address] GUMARO AG Facility:[facility] Start: 01-15-2021 End: 01-16-2021 Encounter for general adult medical examination without abnormal findings DR GUMARO AG Facility:[facility] Start: 07-10-2020 End: 07-11-[address] GUMARO AG Facility:[facility] Procedures Date Procedure Procedure Detail Performing Clinician Start: 09-18-2023 Follow-up visit Follow-up MEAGAN HEARD Start: 03-11-2023 Colonoscopy Nicky zepeda LPN Start: 02-11-2023 Lipid 1996 panel - S shawna or Plasma Nicky Padilla LPN Start: 11-05-2021 History of coronary artery bypass grafting Hx of CABG Pfo 1 Start: 01-15-[address] GUMARO FUCHS Comment on above: Performed By: #### T SH, LIPID, LIVER, PSASC, BMP #### [facility] [address] [place], [place] [id number] Lorie Hall Plan of Treatment Date Care Activity Detail Author Start: 02-12-2028 Lipid 1996 panel - S shawna or Plasma Lipid Screening [facility] Start: 03-11-2026 Screening for malign ant neoplasm of colon Colonoscopy [facility] Start: 01-15-2026 Prostate Cancer Scre ening Discussion Prostate Cancer Screening Discussion [facility] Start: 09-18-2024 Adult BMI Screening Adult BMI Screen ing [facility] Start: 09-03-2024 Adult BMI Screening Adult BMI Screen ing [facility] Start: 09-03-2024 Tobacco Screening Tobacco Screening [facility] Start: 08-20-2024 Adult BMI Screening Adult BMI Screen ing [facility] Start: 08-06-2024 Tobacco Screening Tobacco Screening [facility] Start: 03-11-2024 Colonoscopy Colonoscopy [facility] Start: 03-11-2024 Colorectal Cancer Screening Colorectal Cancer Screening [facility] Start: 10-17-2023 End: 10-17-2023 Patient encounter procedure 10/17/2023 11:15 AM EST Office Visit Ashely Garcia [facility] - Medical Oncology [address] [place] [phone] Meagan Heard MD [address] [place] [id number] Ashely Bahena [facility] - Medical Oncology Start: 09-26-2023 End: 09-26-2023 Patient encounter procedure 09/26/2023 1:30 PM EST Appointment [facility] [address] [place] [phone] Meagan Heard MD [address] [place] [id number] [facility] Start: 09-24-2023 End: 09-24-2023 ambulatory 09/24/2023 11:30 AM EST Infusion Ashely Bahena [facility] - Medical Oncology [address] [place] [phone] Ashely Bahena [facility] - Medical Oncology Start: 09-23-2023 End: 09-23-2023 Patient encounter procedure 09/23/2023 1:00 PM EST Appointment [facility] [address] [place] [phone] [facility] Start: 09-18-2023 End: 09-18-2024 CT Abdomen and Pelvis W contrast IV CT abdomen and pelvis with contrast Imaging Routine Primary malignant neoplasm of rectum (CMS-HCC) Rectal cancer (CMS-HCC) Metastasis to liver (CMS-HCC) Expected: 09/18/2023, Expires: 09/18/2024 [facility] [employer] [facility] Comment on above: Expected: 09/18/2023 , Expires: 09/18/2024 Start: 09-18-2023 End: 09-18-2024 CT Chest limited W contrast IV CT chest with contrast Imaging Routine Primary malignant neoplasm of rectum (CMS-HCC) Rectal cancer (CMS-HCC) Metastasis to liver (CMS-HCC) Expected: 09/18/2023, Expires: 09/18/2024 [facility] Work Phone: Comment on above: Expected: 09/18/2023 , Expires: 09/18/2024 Start: 09-18-2023 End: 09-18-2023 Patient encounter procedure 09/18/2023 12:45 PM EST Office Visit Ashely Bahena [facility] - Medical Oncology [address] [place] [phone] Meagan Heard MD [address] [place] [address] [place], [place] [phone] Ashelyruben Bahena [facility] - Medical Oncology Start: 09-17-2023 End: 09-17-2023 ambulatory 09/17/2023 10:00 AM EST Infusion Ashely Bahena [facility] - [facility] Oncology [address] [place] [phone] Ashely Bahena [facility] Start: 09-16-2023 End: 09-16-2023 Patient encounter procedure 09/16/2023 10:00 AM EST Appointment [facility] [address] [place] [phone] [facility] Start: 09-03-2023 End: 09-03-2023 ambulatory 09/03/2023 10:00 AM EST Infusion Ashely Bahena [facility] - [facility] Oncology [address] [place] [address] Ashely Bahena [facility] [facility] Start: 07-23-2023 DTaP,Tdap and Td Vac cines (2 - Td or Tdap) DTaP,Tdap and Td Vaccines (2 - Td or Tdap) [facility] Start: 07-23-2023 Urine microalbumin profile DTaP,Tdap,Td Vaccine (2 - Td or Tdap) [facility] Start: 05-02-2023 Influenza vaccination C [facility] Start: 09-01-2022 Depression Assessment Depression Ass essment [facility] Start: 2019 RSV Vaccine (1 - 1-d ose 60+ series) RSV Vaccine (1 - 1-dose 60+ series) [facility] Start: 2014 Prostate Cancer Scre ening Discussion Prostate Cancer Screening Discussion [facility] Start: 2004 Cologuard (FIT-DNA) Cologuard (FIT-D NA) [facility] Start: [address] COLONOGRAPHY [facility] Start: 2004 Diabetes Screening Diabetes Screenin g [facility] Start: 2004 Fecal Occult Blood Fecal Occult Bloo d [facility] Start: 2004 [facility] Start: 1978 Administration of varicella zoster vaccine Zoster (Shingles) Vaccine (1 of 2) [facility] Start: 1978 Shingrix Vaccine (1 of 2) Moore grix Vaccine (1 of 2) [facility] Start: 1978 Urine microalbumin profile DTaP,Tdap,Td Vaccine (1 - Tdap) [facility] Start: 1977 Adult BMI Follow Up Plan Adult BMI Follow Up Plan [facility] Start: 1977 Hepatitis C Screening Hepatitis C Sc andrew [facility] Start: 1977 HIV Screening [facility]ening [facility] Start: 1971 Depression Screening Depression Scre ening [facility] Start: 1965 Pneumococcal vaccination Pneum ococcal Vaccine (1 - PCV) [facility] Start: 1964 Covid-19 Vaccine (#1) Covid-19 Vacci ne (#1) [facility] Immunizations Immunization Date Immunization Notes Care Provider Alisa bowman 07-23-2013 tetanus toxoid, redu rupinder diphtheria toxoid, and acellular pertussis vaccine, adsorbed Pfo 1 [facility] Payers Date Payer Category Payer Medicare [employer] [place] [place] [id number] 2022-Present [phone] [address] [place] [address] O [id number] 2022 Medicare [id number] 2021 Unknown [id number] 1959 Private Health Insurance [id number] 1959 Private Health Insurance [id number] 1959 Unknown [id number]. [id number] 1959 Unknown [id number] [id number]. 2.593 1959 Unknown [id number] [id number]. 2.647 1959 Unknown [id number] [id number]. 2.1286 1959 Unknown [id number] [id number]. 2.1285 1959 Unknown [id number] [id number]. 2.1285 1959 Unknown [id number] [id number]. 2.1285 1959 Unknown [id number] [id number]. 2.1285 1959 Unknown [id number] [id number]. 2.1285 1959 Unknown [id number] [id number]. 2.1285 1959 Unknown [id number] [id number]. 2.1286 [facility] ( and others) [id number] Medicare [id number] Social History Date Type Detail Facility Start: 02-18-2023 End: 05-21-2023 Tobacco smoking status NHIS Ex-smoker [facility] End: 08-27-2000 History of tobacco use Current smoker [facility] End: 08-27-2000 History of tobacco use Cigarette Smoker [facility] Start: 09-28-2020 End: 05-21-2023 Cigarettes smoked current (pack per day) - Reported 2.5 [facility] Start: 02-18-2023 End: 05-21-2023 Tobacco use and exposure Smokeless tobacco non-user [facility] Start: 05-21-2023 End: 09-03-2023 Alcohol intake Ex-drinker (finding) [facility] Start: 09-28-2020 End: 05-21-2023 Tobacco use panel [facility] National Score (1-10 0), lower number is lower risk 52 [facility] Start: 1960 Sex Assigned At Not on file [facility] Start: 11-03-2019 Education 15 [facility] Start: 02-18-2023 Tobacco Comment 2 ppd for 26 yrs [employer] Start: 09-30-2019 Alcohol Comment not in past 20 to 30 yrs [facility] Medical [facility] Procedure Code Equipment Code Equipment Origin al Text Equipment Identifier Dates Port Pp Mri 8fr Chrnflx - Sna - [id number] Start: 12-14-2019 Goals Date Patient Goal Desired Activity /State Personal health goal Comment on above: Formatting of this n ote might be different from the original. Evaluation of progress towards goal: Patients goal is to discharge to home with . Clinical Notes 02-12-2023 to 09-25-2023 Keyona Thurman RN - 09/23/2023 5:02 PM Lisa Thurman RN - 09/18/2023 1:07 PM ESTMeagan Heard MD - 09/18/2023 12:45 PM ESTPatient InstructionsCanper Moore RN - 09/17/2023 9:14 AM EST Note Date & Type Note Facility 09-25-2023 Note In light of C/O SOB, cough and recent chemotherapy regime will order echocardiogram to assess cardiac function, EF, Rt sided pressures, and valvular function. Pt to have CT Chest tomorrow- already scheduled Will send for labs today- CBC, CMP, BNP, Mag [facility] 09-25-2023 Note Coronary artery dise ase is Stable Continue GDMT- ASA, lipitor, metoprolol and ranexa continue risk factor modifications- heart healthy diet, regular exercise as tolerated and continue all medications. [facility] 09-25-2023 Note [facility]a and [facility] CARDIOLOGY PROGR ESS NOTE Date of phone call: 09/25/2023 Ml: MATUTE, cough HPI 63 yo male presents today via telemed video for concerns of increased SOB, MATUTE, cough. Reports occasional chest pain- but states this is my typical chest pain. States he was evaluated in ED in [place] for SOB- was prescribed amoxicillin r/t very low WBC count of 1. States his oncologist has since held chemotherapy regime until further investigations and recommendations from cardiology r/t concerns for heart failure. He states that since stopping chemo the shortness of breath has improved a bit but has not resolved. Pt is scheduled for CT chest tomorrow. Total time spent in Medical Discussion including obtaining history from the patient, review of labs, tests with the patient, discussion of assessment and plan: 30 minutes. [facility] The visit was initiated by the patient and conducted [id number] with use of audio-only real time telephone communication between patient and provider for a virtual visit. Verbal consent to provide and bill for this service was obtained on 09/25/2023. Diagnoses and all orders for this visit: Coronary artery disease involving samish coronary artery of samish heart without angina pectoris Hyperlipidemia, unspecified hyperlipidemia type - omega-3 1,000 mg capsule capsule; Take 2 capsules (2,000 mg) by mouth in the morning and at bedtime. Shortness of breath - Transthoracic echo (TTE) complete; Future - CBC; Future - Comprehensive metabolic panel; Future - B-type natriuretic peptide; Future - Magnesium; Future - TSH3 Reflex to FT4; Future MATUTE (dyspnea on exertion) - Transthoracic echo (TTE) complete; Future - CBC; Future - Comprehensive metabolic panel; Future - B-type natriuretic peptide; Future - Magnesium; Future - TSH3 Reflex to FT4; Future HPI: Patient being seen via telemedicine today c/o cough and SOB. He states he thinks it's heart failure . States he's been treated with different antibiotics with no relief. Oncologist took him off cancer for the month to see if this helped. He gets very SOB with even minimal exertion. states he's much better today, best he's been in 4+ weeks. He was seen in the ED in [place] for this. Review of Systems Cardiovascular: Positive for chest pain ( tightness ) and dyspnea on exertion. Respiratory: Positive for cough, shortness of breath, sleep disturbances due to breathing and wheezing. Neurological: Positive for light-headedness. All other systems reviewed and are negative. Previous HPI per Dr Moscoso HPI Chris is seen in follow up [...] radiation therapy in the next 2 weeks. (more content not included)... [facility] 09-25-2023 Note Patient being seen v ia telemedicine today c/o cough and SOB. He states he thinks it's heart failure . States he's been treated with different antibiotics with no relief. Oncologist took him off cancer for the month to see if this helped. He gets very SOB with even minimal exertion. states he's much better today, best he's been in 4+ weeks. He was seen in the ED in [place] for this. Review of Systems Cardiovascular: Positive for chest pain ( tightness ) and dyspnea on exertion. Respiratory: Positive for cough, shortness of breath, sleep disturbances due to breathing and wheezing. Neurological: Positive for light-headedness. All other systems reviewed and are negative. [facility] 09-23-2023 History of Presen t illness Narrative I spoke with him, he is still short of breath and has a productive cough. Treatment cancelled tomorrow. He will call us back after he sees his heart doctor to update and let us know how he is feeling. Dr. Heard updated. ===View-only below this line=== ----- Message ----- From: Meagan Heard MD Sent: 09/23/2023 3:50 PM EST To: Patricia Joy [facility]; Keyona Thurman RN Subject: RE: Sign Chemo Orders The patient can resume treatment only when his shortness of breath has improved and no productive cough. I suspect he has active pneumonia and start him on antibiotics last time. ----- Message ----- From: Patricia Joy [facility] Sent: 09/23/2023 3:23 PM EST To: Meagan Heard MD; Keyona Thurman RN Subject: Sign Chemo Orders Dr. Heard, The Chemo orders (MVASI and Irinotecan) will need to be signed for treatment tomorrow. Thanks, Destiny documented in this encounter [facility] 09-18-2023 History of Presen t illness Narrative Patient is here for follow up with Dr. Heard. Orders received for Ct C/A/P with contrast zeeshan. Hold chemo for now. If responding to chemo, plan to check back with rad/onc (vinay) to see if they can do radiation. F/u in 1 month. Patient given calendar, verbalized understanding of future appointments. documented in this encounter [facility] [employer] [facility] 09-18-2023 History of Presen t illness Narrative [facility] 09/18/23 Chris Fagan is a 63 [...] length. He underwent PET scan recently at [facility], no evidence of distant metastasis. Concurrent chemoradiation [...] Hyperlipidemia Hypertension Liver tumor 10/2021 Myocardial infarction ([facility]) 2013, 2015 Rectal bleeding Rectal cancer ([facility]) 2019 Umbilical hernia Visual impairment glasses Past Surgical History: Procedure Laterality Date BOWEL RESECTION 10/2019 CARDIAC SURGERY 2014 quad bypass COLONOSCOPY N/A 03/11/2023 Performed by Tacho Capps DO at [facility] COLONOSCOPY N/A 11/21/2020 Performed by Art Avilez MD at [facility] ENDOSCOPY COLONOSCOPY N/A 05/31/2019 Performed by Tacho Capps DO at [facility] COLOSTOMY 10/2019 CORONARY ANGIOPLASTY 06/2019 CORONARY ANGIOPLASTY WITH STENT PLACEMENT 07/26/2014 x 2. prior to open heart says stents did not work CORONARY ANGIOPLASTY WITH STENT PLACEMENT 2015 DAVINCI PARTIAL HEPATECTOMY N/A 10/17/2021 Performed by Riky Kay MD at [facility] DAVINCI RESECTION ABDOMINAL PERINEAL/BIOBANK N/A 10/08/2019 Performed by Art Avilez MD at [facility] FLEXIBLE SIGMOIDOSCOPY N/A 08/27/2019 Performed by Art Avilez MD at [facility] HERNIA REPAIR 2010 umbilical INSERTION PORT A CATH Left 12/14/2019 Performed by Tacho Capps DO at [facility] LAPAROSCOPIC ULTRASOUND GUIDED MICROWAVE ABLATION OF LIVER TUMOR N/A 10/17/2021 Performed by Riky Kay MD at [facility] LAPAROSCOPY DIAGNOSTIC/ LIVER ULTRASOUND WITH INTERPRETATION N/A 10/17/2021 Performed by Riky Kay MD at [facility] LOCAL EXCISION LESION SKIN N/A 05/31/2019 Performed by Tacho Capps DO at [facility] Family History Problem Relation Age of Onset [...] min Stress: No Stress Concern Present (11/03/2019) [place] [employer] - Occupational Stress Questionnaire Feeling of Stress : Not at all Social Connections: Socially Integrated (11/03/2019) Social Connection and Isolation Panel [NHANES] Frequency of Communication with Friends and Family: Twice a week Frequency of Social Gatherings with Friends and Family: Once a week Attends [employer] Services: More than 4 times per year [...] 0 Dose: 200 mg Signed by: Dr. Meagan Heard MD 200 mg, oral, 3 times daily PRN Commonly known as: TESSARITHA NINO Started by: Meagan Heard MD levoFLOXacin 750 mg tablet Quantity: 10 tablet Refills: 0 Dose: 750 mg Signed by: Dr. Meagan Heard MD 750 mg, oral, Daily Commonly known as: LEVAQUIN Started by: Meagan Heard MD Medications Modified This Visit capecitabine 500 mg chemo tablet Quantity: 112 tablet Refills: 11 Dose: 1,000 mg/m2 Signed by: Dr. Meagan Heard MD 1,000 mg/m2 (2,000 mg), oral, [...] 0 Dose: 10 mg Signed by: Dr. Meagan Heard MD 10 mg, oral, 3 times daily PRN Commonly known as: FLEXERIL diphenhydrAMINE 12.5 mg/5 mL elixir 50 mg, alum-mag hydroxide-simeth 400-400-40 mg/5 mL suspension 20 mL, lidocaine 2 % solution 20 mL Quantity: 250 mL Refills: 1 Dose: 10 mL Signed by: Dr. Meagan Heard MD 10 mL, swish & spit, [...] Dose: 25 mg Signed by: Sandra Alfredo APRN-PROJECT COORDINATOR 25 mg, oral, 2 times daily Commonly [...] Chemotherapy induced neutropenia (CMS-HCC) Signed by: Dr. Meagan Heard MD Take 1 tablet by mouth twice daily as needed for severe nausea or vomiting. Commonly known as: ZOFRAN oxyCODONE 5 mg immediate release tablet Quantity: 45 tablet Refills: 0 Doctor's comments: 30 Day Supply For diagnoses: Rectal cancer ([facility]) Dose: 5 mg Signed by: Dr. Meagan Heard MD 5 mg, oral, Every 8 hours PRN Commonly known as: ROXICODONE pantoprazole 40 mg EC tablet Refills: 0 Dose: 40 mg Commonly known as: PROTONIX polyethylene glycol 17 gram packet Quantity: 14 packet Refills: 1 Dose: 17 g Signed by: Dr. Meagan Heard MD 17 g, oral, Daily Commonly known as: GLYCOLAX prochlorperazine 10 mg tablet Quantity: 60 tablet Refills: 2 For diagnoses: CINV (chemotherapy-induced nausea and vomiting), Rectal cancer (CMS-HCC), Primary malignant neoplasm of rectum (CMS-HCC), Chemotherapy induced neutropenia ([facility]) Signed by: Dr. Meagan Heard MD TAKE ONE TABLET BY MOUTH EVERY 6 HOURS NEEDED FOR MILD NAUSEA OR VOMITING Commonly known as: COMPAZINE ranolazine 500 mg 12 hr tablet Refills: 0 Dose: 500 mg Commonly known as: RANEXA TRELEGY ELLIPTA 200-62.5-25 mcg blister with device Refills: 0 Dose: 200 puff Generic drug: joosqmbsycf-jropnwuoa-sjnbztow VASCEPA 1 gram capsule Refills: 0 Dose: [...] Julio Salazar MD on 06/10/2019 11:31 AM I, Yassine Cotter MD have personally reviewed the image(s) and [...] Protein Urine Random 140 (H) <120 mg/L U/Pro/Ethnoarchaeologist Ratio Calc 0.08 <0.2 Magnesium Collection Time: [...] radiation. F/u in 1 month. Thank you. Meagan Heard MD Please note that portions of this note were generated using voice recognition M*FlexMinder dictation software. Although every effort was made to ensure the accuracy of this automated senior editor, some errors in senior editor may have occurred. CC: Patient Care Team: Gumaro Ag MD as PCP - General Meagan Heard MD as Referring Physician (Hematology) Tacho [...] Gumaro Ag MD documented in this encounter [facility] 09-18-2023 Instructions Meagan Heard MD - 09/18/2023 12:[address] C/A/P with contrast zeeshan. Hold chemo for now. If responding to chemo, plan to check back with rad/onc (vinay) to see if they can do radiation. F/u in 1 month. documented in this encounter [facility] 09-17-2023 History of Presen t illness Narrative [...] RN Sent: 09/16/2023 4:29 PM EST To: Meagan Heard MD Called to update patient he was OK for treatment tomorrow and he has a very hoarse voice. States he went to ED while in on 09/09/23 because he wasn't feeling well. [...] Thank you, Zuly ----- Message ----- From: Meagan Heard MD Sent: 09/16/2023 4:16 PM EST To: Rosalia Moore RN Okay to treat ----- Message ----- From: Rosalia Moore RN Sent: 09/16/2023 4:05 PM EST To: Meagan Heard MD ANC is 1.3 this week. Due for Avastin/irnotecan tomorrow. Wanted to check to see if you wanted him to proceed with treatment as planned. Please advise. Thank you, Zuly documented in this encounter [facility] 09-03-2023 History of Presen t illness Narrative [...] to private vehicle. documented in this encounter [facility] 08-08-2023 Note [facility] Subjective Chris Fagan is a 63 [...] bleeding. He was also recently admitted to [facility] with symptoms of angina (pain in the center of the chest, pressure, difficulty breathing, and sweating) and mildly elevated troponin at the [facility]. His echo and stress test were non-revealing. [...] systolic function is (more content not included)... [facility] 06-24-2023 Note HNO ID: [id number] Author: Jean-Claude Cabrera MD Service: ? Author Type: Physician Type: Progress Notes Filed: 06/24/2023 2:19 PM Note Text: Radiation Oncology -simulation note PATIENT NAME: Chris Fagan PATIENT REQUESTING PROVIDER: Dr. Meagan Heard. DIAGNOSIS: Rectal cancer with liver and [...] lesion. Signed by: Jean-Claude Cabrera MD cc: Meagan Heard MD [id number] [facility] [address] [place] [id number] [facility] 06-24-2023 History of Presen t illness Narrative Radiation Oncology -simulation note PATIENT NAME: Chris Fagan PATIENT REQUESTING PROVIDER: Dr. Meagan Heard. DIAGNOSIS: Rectal cancer with liver and [...] lesion. Signed by: Jean-Claude Cabrera MD cc: Meagan Heard MD [id number] [facility] [address] [facility] [id number] documented in this encounter [facility] 06-19-2023 Note HNO ID: [id number] Author: Jean-Claude Cabrera MD Service: ? 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 Patient simulated at [facility] for SBRT. Position: Thigh Positioner: 0 With [...] 0 Tri-Vac Cushion Lt. side Adjust 0 [id number] Pump 0 [id number] Wingboard: Head Pad (B or F) :FForearm [...] Electronically Signed AUDELIA CABRERA M.D. 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 Patient simulated at [facility] for SBRT. Position: Thigh Positioner: 0 With [...] 0 Tri-Vac Cushion Lt. side Adjust 0 [id number] Pump 0 [id number] Wingboard: Head Pad (B or F) :FForearm [...] M.D. 1:50 AM documented in this encounter [facility] 05-28-2023 Miscellaneous Notes Patient is called and scheduled. Patient is scheduled 06/11 for his MRI, when would you like his SIM scheduled? documented in this encounter [facility] 05-21-2023 Note HNO ID: [id number] Author: Jean-Claude Cabrera MD Service: ? Author Type: Physician Type: Progress Notes Filed: 05/28/2023 2:07 PM Note Text: Radiation Oncology - New Patient/Consult Note PATIENT NAME: Chris Fagan PATIENT REQUESTING PROVIDER: Dr. Meagan Heard. DIAGNOSIS: Rectal cancer with liver and [...] (FLONASE) 50 mcg/actuation nasal spray Use 1 [place] in the nose. losartan (COZAAR) 50 mg [...] GENERAL: feeling well (more content not included)... [facility] 05-21-2023 Nurse Note Radiation Therapy - Patient Education Note PATIENT NAME: Chris Fagan PATIENT May 21, 2023 [facility] FACILITY/LOCATION: [facility] READINESS TO LEARN Cognitive Ability: Alert and [...] need for social work, van service, and second operator. Was approved? No Signed by: Nicky Padilla LPN documented in this encounter [facility] 05-21-2023 Note Education (MALIKA) CHRIS FAGAN ([id number]) 1960 M Date Time Provider Department 05/21/23 NICKY PADILLA Reason for Visit: Patient Education [91] Visit Notes: >> Nicky Padilla LPN Wed May 21, 2023 3:41 PM Status: Signed Radiation Therapy - Patient Education Note PATIENT NAME: Chris Fagan PATIENT May 21, 2023 [facility] FACILITY/LOCATION: [facility] READINESS TO LEARN Cognitive Ability: Alert and [...] need for social work, van service, and second operator. Was approved? No Signed by: Nicky Padilla [...] (FLONASE) 50 mcg/actuation nasal spray Use 1 [place] in the nose. - losartan (COZAAR) 50 [...] Encounter Status:Closed by NICKY PADILLA on 05/21/23 [facility] 02-12-2023 Note [place] [facility] - [facility] Subjective Chris Fagan is a 62 y.o. [...] bleeding. He was also recently admitted to [facility] with symptoms of angina (pain in the center of the chest, pressure, difficulty breathing, and sweating) and mildly elevated troponin at the [facility]. His echo and stress test were non-revealing. [...] cath. Cardiac catheterization (more content not included)... [facility] Evaluation note Diagnosis Cancer, metastatic to liver (HCC)- Primary Secondary malignant neoplasm of liver [facility] Primary malignant neoplasm of rectum (CMS-HCC) [facility] Diagnosis Primary malignant neoplasm of rectum (CMS-HCC)- Primary Rectal cancer (CMS-HCC) Malignant neoplasm of rectum CINV (chemotherapy-induced nausea and vomiting) Chemotherapy induced neutropenia (CMS-HCC) [facility] Diagnosis Primary malignant neoplasm of rectum (CMS-HCC)- Primary Rectal cancer (CMS-HCC) Malignant neoplasm of rectum Metastasis to liver (CMS-HCC) Secondary malignant neoplasm of liver [facility] Diagnosis Rectal cancer (CMS-HCC)- Primary Malignant neoplasm of rectum Primary malignant neoplasm of rectum (CMS-HCC) Liver lesion Other specified disorders of liver documented [facility] filedocumented in this encounter [facility] on filedocumented in this encounter [facility] on filedocumented in this encounter [facility] on filedocumented in this encounter [facility] Summary Purpose Family History No Family History Records FoundNo Family History Records FoundNo Family History Records FoundNo Family History Records FoundNo Family History Records Found Advance Directives No Advanced Directives Records FoundLatest Code Status on File Code Status Date [...] Procedures CT abdomen and pelvis with contrast Meagan Heard MD [address] [place] [id number] [place] [id number] [id number] Phone: [phone] Referral ID Status Reason Start Date Expiration Date V isits Requested Visits Authorized [id number] Pending Review 09/18/2023 09/17/2024 1 1 Specialty Diagnoses / Procedures Referred By Contac t Referred To Contact Radiology Diagnoses Primary malignant neoplasm of rectum (CMS-HCC) Rectal cancer (CMS-HCC) Metastasis to liver (CMS-HCC) Procedures CT chest with contrast Meagan Heard MD [address] [place] [address] [address] [place] [address] [id number] Phone: [phone] Referral ID Status Reason Start Date Expiration Date V isits Requested Visits Authorized [id number] Pending Review 09/18/2023 09/17/2024 1 1 Additional Source Comments (unrecognized sect ion and content) No Status Records FoundNo Status Records FoundNo Status Records FoundNo Status Records FoundNo Status Records Found INFORMATION SOURCE (unrecogn ized section and content) DATE CREATED AUTHOR 01/26/2021 [facility] DATE CREATED AUTHOR AUTHOR'S ORGANIZ ATION 12/23/2021 [facility] DATE CREATED AUTHOR AUTHOR'S ORGANIZ ATION 06/25/2023 [facility] DATE CREATED AUTHOR AUTHOR'S ORGANIZ ATION 09/26/[address] [facility] DATE CREATED AUTHOR AUTHOR'S ORGANIZ ATION 09/28/2023 [facility] Source Comments (unrecognize d section and content) In the event this informatio n is protected by the Federal Confidentiality of Alcohol and Drug Abuse Patient Records regulations: The Federal rules restrict any use of the information to criminally investigate or prosecute any alcohol or drug abuse patient.[facility] the event this information is protected by the Federal Confidentiality of Alcohol and Drug Abuse Patient Records regulations: The Federal rules restrict any use of the information to criminally investigate or prosecute any alcohol or drug abuse patient.[facility] the event this information is protected by the Federal Confidentiality of Alcohol and Drug Abuse Patient Records regulations: The Federal rules restrict any use of the information to criminally investigate or prosecute any alcohol or drug abuse patient.[facility] the event this information is protected by the Federal Confidentiality of Alcohol and Drug Abuse Patient Records regulations: The Federal rules restrict any use of the information to criminally investigate or prosecute any alcohol or drug abuse patient.[facility] Hospital[facility] the event this information is protected by the Federal Confidentiality of Alcohol and Drug Abuse Patient Records regulations: The Federal rules restrict any use of the information to criminally investigate or prosecute any alcohol or drug abuse patient.[facility] Reason for Visit (unrecogniz ed section and content) Reason Comments Patient Education Reason Comments Appointment Confirmation Reason Onset Date Comments Simulation Request Form 06/19/2023 Reason Comments Labs Only Reason Comments Outpatient Infusion Avastin/ irinotecan Specialty Diagnoses / Procedures Referred By Contac t Referred To Contact Diagnoses Primary malignant neoplasm of rectum (CMS-HCC) Rectal cancer (CMS-HCC) CINV (chemotherapy-induced nausea and vomiting) Chemotherapy induced neutropenia (CMS-HCC) Procedures VA IRINOTECAN INJECTION VA PALONOSETRON HCL VA DEXAMETHASONE SODIUM PHOS VA CHEMOTHER, IV INFUSION, 1 HR VA CHEMOTHER, IV INFUSION, EA ADD HR Meagan Heard MD [address] [facility] [address] [place] [id number] [facility] [address] [place] [id number] Referral ID Status Reason Start Date Expiration Date V isits Requested Visits Authorized [id number] Authorized 09/01/2022 09/09/2023 26 26 Reason Comments Follow-up Care Teams (unrecognized sec tion and content) Radiator Specialist Relationship Specialty Start Date End Date Gumaro Ag [address] [place] [address] PCP - General Family Medicine 05/21/23 Radiator Specialist Relationship Specialty Start Date End Date Gumaro Ag [address] [place] [address] PCP - General Family Medicine 05/21/23 Radiator Specialist Relationship Specialty Start Date End Date Gumaro Ag [address] [place] [address] PCP - General Family Medicine 05/21/23 Radiator Specialist Relationship Specialty Start Date End Date Gumaro Ag [address] [place] [address] PCP - General Family Medicine 05/21/23 Radiator Specialist Relationship Specialty Start Date End Date Gumaro Ag [address] [place] [address] PCP - General Family Medicine 05/21/23 Radiator Specialist Relationship Specialty Start Date End Date Gumaro Ag MD [address] [place] [address] PCP - General 08/07/17 Radiator Specialist Relationship Specialty Start Date End Date Gumaro Ag MD [address] [place] [address] PCP - General 08/07/17 Radiator Specialist Relationship Specialty Start Date End Date Gumaro Ag MD [address] [facility] [place] [address] PCP - General 08/07/17 Radiator Specialist Relationship Specialty Start Date End Date Gumaro Ag MD [address] [place] [address] PCP - General 08/07/17 Radiator Specialist Relationship Specialty Start Date End Date Gumaro Ag MD [address] [place] [address] PCP - General 08/07/17 Radiator Specialist Relationship Specialty Start Date End Date Gumaro Ag MD [address] [place] [address] [facility] 08/07/17 FOR RECORDS PERTAINING TO PATIENTS WHO [...] BE BASED ON THE PRIMARY CLINICAL RECORDS. [facility] [employer] [facility]. provides no warranty or guarantee of the accuracy or completeness of information in this document.
--- NOTE | 2023-10-02 14:18 | CA_ITS ---
Patient Name: CHENTE STUBBS MR#: [id number] : 1960 Exam Date: 10/02/2023 Ordering Doctor: SUSANA PALOMINO ECHOCARDIOGRAM REPORT PROCEDURE: CA ECHO DOPPLER COMPLETE INDICATIONS: Dyspnea, CABGx4, stents, COPD, hypertension, rectal cancer-chemo and radiation COMPARISON: None. DESCRIPTION: COMPLETE ECHOCARDIOGRAM Real-time transthoracic echocardiography with 2D, M-mode, spectral and color flow Doppler performed. QUALITY: Technical quality was good. 68 , 210#, BSA 2.09 m2 LEFT VENTRICLE: Normal chamber size. Proximal septal hypertrophy (sigmoid septum). Normal systolic function. LV EF: Normal left ventricular ejection fraction, (55%). DIASTOLIC: Diastolic function is indeterminate. ATRIAL SEPTUM: LEFT ATRIUM: Mild dilatation. RIGHT ATRIUM: Mild dilatation. RIGHT VENTRICLE: Normal chamber size. Normal right ventricular systolic function. TRICUSPID VALVE: Normal mobility and thickness. No stenosis with trivial regurgitation. No evidence of pulmonary hypertension. RVSP 34 mmHg MITRAL VALVE: Normal mobility and thickness. No evidence of mitral valve stenosis. There is no mitral annular calcification. Mild mitral regurgitation. AORTIC VALVE: Normal trileaflet appearance. No visible sclerosis. Normal leaflet mobility. No evidence of aortic valve stenosis. Trivial aortic regurgitation. AORTIC ROOT: Normal diameter and appearance. PULMONIC VALVE: Normal thickness and mobility. No stenosis. No regurgitation. PERICARDIUM: No evidence of pericardial effusion. IVC: Collapses with inspirations. PLEURA: CONCLUSION: 1. Left ventricle is normal size and exhibits normal systolic function. LVEF is 55%. 2. Normal right ventricular size and systolic function. 3. Mild biatrial dilatation. 4. Mild mitral regurgitation. 5. Normal right-sided pressures. Adult Echocardiography Procedure Report Left Ventricle LVEDD (3.7 - 5.6 cm): 4.34 cm LVESD (2.2 - 4.0 cm): 3.32 cm LVIVS thickness (0.6 - 1.2 cm): 1.57 cm LVPW thickness (0.5 - 1.0 cm): 9.83 mm LVOT Max Gradient: 2 mm[Hg] Peak Velocity (LVOT): 76.70 cm/s Mean Velocity (LVOT): 50.00 cm/s LVOT Diameter 2.70 cm Left Ventricular Ejection Fraction: 55 % Left Atrium LA Volume Index (2D A2C): 17186 mm3 Left Atrium Systolic Dimension: 3.90 cm Mitral Valve MV E to A Ratio: 1.20 Mitral Valve A-Wave Peak Velocity: 52.80 cm/s Mitral Valve E-Wave Peak Velocity: 62.20 cm/s Cardiovascular Orifice Area: 4.40 cm2 Right Ventricle Aorta AO Root Diam: 3.60 cm Aortic Valve AoV Area (Peak Christo): 4.40 cm2 AoV Area (VTI): 5.19 cm2 Peak Velocity(Antegrade Flow): 99.90 cm/s Peak Gradient(Antegrade Flow): 4 mm[Hg] Mean Velocity(Antegrade Flow): 59.70 cm/s Mean Gradient(Antegrade Flow): 2 mm[Hg] Velocity Time Integral: 18.20 cm Tricuspid Valve Peak Velocity (Regurgitant Flow): 278.00 cm/s Peak Velocity: 48.90 cm/s Pulmonic Valve Peak Velocity: 81.40 cm/s, 79.40 cm/s Peak Gradient: 3 mm[Hg] Right Atrium Dictated by: Lawson Marcelino M.D. on 10/02/2023 at 17:57 Approved by: Lawson Marcelino M.D. on 10/02/2023 at 18:04
== END 2023-10-02 13:37 | disposition home or self-care (01) ==
LOC: CARD 13:37
PROVIDERS: PCP Family Medicine; Visit Provider Nurse Practitioner
DX: R06.02 Shortness of breath (principal); R06.09 Other forms of dyspnea
CPT/HCPCS: 93306